=== PATIENT | male | born 1970 | race Caucasian/White ===

== ENCOUNTER 2018-11-20 21:14 | Observation (INO) | payer OTHER ==
[2018-11-20 22:03] LABS: Absolute Lymphocytes (CBC) 1.1 K/uL (0.7-4.9); Absolute Monocytes 0.4 K/uL (0.1-1.3); Absolute Neutrophil 4.4 K/uL (1.8-8.0); Basophils % 0.8 % (0-1.3); Eosinophils % 2.9 % (0-4.4); Hematocrit 34.6 % (39.6-49.0); Lymphocytes % 17.9 % (15.3-44.8); MPV 9.4 fL (7.6-11.3); Monocytes % 5.9 % (3.3-12.3); RBC Red Blood Cell Count 4.06 M/uL (4.33-5.43)
[2018-11-20] MEDS ORDERED: DICYCLOMINE HCL 10 MG CAP ONE (22:05)
[2018-11-20] MEDS ORDERED: LOPERAMIDE HCL 2 MG CAPSULE ONE (22:05)
[2018-11-20] MEDS ORDERED: ONDANSETRON 4 MG/2 ML VIAL ONE (22:06)
[2018-11-20] MEDS ORDERED: NA CHLORIDE 0.9% 1,000 ML ONE (22:06)
[2018-11-20 22:17] LABS: ALT/SGPT 21 U/L (12-78); AST/SGOT 17 U/L (15-37); Albumin 3.2 g/dL (3.4-5.0); Alkaline Phosphatase 72 U/L (45-117); BUN Blood Urea Nitrogen 68 mg/dL (7-18); Bicarbonate 21 mmol/L (21-32); Bilirubin Direct < 0.1 mg/dL (0-0.2); Bilirubin Total 0.4 mg/dL (0.2-1.0); Glucose Level 200 mg/dL (74-106); Lipase 274 U/L (73-393); Potassium 5.1 mmol/L (3.5-5.1); Protein, Total 6.6 g/dL (6.4-8.2); Sodium Level 143 mmol/L (136-145)
[2018-11-20 22:34] LABS: Urine Blood 1+ (NEG); Urine Glucose 1+ (NEG); Urine Protein 3+ (NEG); Urine Specific Gravity 1.025 (1.005-1.030); Urine pH 5.5 (5.0-7.0)
--- NOTE | 2018-11-20 23:45 | ER ---
Nurse's Notes [facility] Name: Baltazar Granger Age: 48 yrs Sex: Male : 1970 Arrival Date: 11/20/2018 Time: 21:18 Bed 6 Private MD: Diagnosis: Dehydration;Chronic kidney disease (CKD);Nausea and vomiting Presentation: 11/20 21:26 Presenting complaint: Patient states: N/V/D x 2 days. Also reports left sided chest tl2 pain in shoulder area. Pt states he has 18% kidney function and is on the transplant list. Transition of care: patient was not received from another setting of care. Onset of symptoms was November 18, 2018. Risk Assessment: Do you want to hurt yourself or someone else? Patient reports no desire to harm self or others. Initial Sepsis Screen: Does the patient meet any 2 criteria? No. Patient's initial sepsis screen is negative. Does the patient have a suspected source of infection? No. Patient's initial sepsis screen is negative. Care prior to arrival: None. 21:26 Method Of Arrival: Ambulatory tl2 21:26 Acuity: PANCHITO 2 tl2 Triage Assessment: 21:30 General: Appears in no apparent distress. uncomfortable, Behavior is calm, cooperative, tl2 appropriate for age. Pain: Complains of pain in left mid back and right mid back. Historical: - Allergies: 21:30 No Known Allergies; tl2 - Home Meds: 21:30 atorvastatin 80 mg oral tab 1 tab once daily [Active]; gabapentin 100 mg oral cap 3 tl2 caps 3 times per day [Active]; glimepiride 1 mg Oral tab 1 tab once daily [Active]; losartan 25 mg oral tab 1 tab once daily [Active]; omeprazole 20 mg Oral cpDR 1 cap once daily [Active]; metoprolol succinate 25 mg oral Tb24 1 tab once daily [Active]; fenofibrate 160 mg oral tab 1 tab once daily [Active]; amlodipine 10 mg oral tab [Active]; - PMHx: 21:30 ESRD; Diabetes - IDDM; Hypertension; tl2 - Immunization history:: Adult Immunizations up to date. - Social history:: Smoking status: Patient/guardian denies using tobacco. - Ebola Screening: : No symptoms or risks identified at this time. Screenin:31 Abuse screen: Denies threats or abuse. Nutritional screening: No deficits noted. tl2 Tuberculosis screening: No symptoms or risk factors identified. Fall Risk None identified. Assessment: 21:31 General: Appears in no apparent distress. uncomfortable, Behavior is calm, cooperative, tl2 appropriate for age. General: Reports feeling ill for. Pain: Complains of pain in right mid back and left mid back. Neuro: Level of Consciousness is awake, alert, obeys commands, Oriented to person, place, time, situation. Cardiovascular: Patient's skin is warm and dry. Chest pain is described as diffuse, quality is pressure, sharp, is located in left anterior chest wall began 2 hours prior to arrival. Respiratory: Airway is patent Respiratory effort is even, unlabored, Respiratory pattern is regular, symmetrical. GI: Abdomen is round Reports diarrhea, nausea, vomiting. : Denies burning with urination. Derm: Skin is pale. 22:40 Reassessment: Patient appears in no apparent distress at this time. Patient and/or tl2 family updated on plan of care and expected duration. Pain level reassessed. Patient is alert, oriented x 3, equal unlabored respirations, skin warm/dry/pink. pt was able to hold down water and PO medications, pt resting comfortably at this time. Awaiting lab results. Vital Signs: 21:30 BP 146 / 87; Pulse 63; Resp 18; Temp 98.4(O); Pulse Ox 99% on R/A; Weight 104.33 kg; tl2 Height 6 ft. 0 in. (182.88 cm); Pain 8/10; 22:39 BP 134 / 98; Pulse 58; Resp 18; Pulse Ox 98% on R/A; tl2 23:33 BP 123 / 74; Pulse 57; Resp 18; Pulse Ox 97% on R/A; tl2 11/21 01:08 BP 111 / 65; Pulse 61; Resp 18; Pulse Ox 100% on R/A; tl2 02:20 BP 116 / 87; Pulse 57; Resp 18; Pulse Ox 99% on R/A; tl2 11/20 21:30 Body Mass Index 31.19 (104.33 kg, 182.88 cm) tl2 ED Course: 11/20 21:18 Patient arrived in ED. ds1 21:24 Prakash Ibarra MD is Attending Physician. ps1 21:27 Triage completed. tl2 21:30 Arm band placed on right wrist. EKG completed in triage. Results shown to MD. tl2 21:31 Patient has correct armband on for positive identification. Bed in low position. Call tl2 light in reach. Side rails up X 1. 21:50 Inserted saline lock: 22 gauge in left wrist, using aseptic technique. Blood collected. tl2 22:00 Pamela Peterson RN is Primary Nurse. tl2 11/21 01:19 Gavin Pascual MD is Hospitalizing Provider. ps1 03:05 Stone Protocol In Process Unspecified. EDMS 04:38 No provider procedures requiring assistance completed. Patient admitted, IV remains in tl2 place. Administered Medications: 11/20 22:01 Drug: Zofran 4 mg Route: IVP; Site: left wrist; tl2 23:00 Follow up: Response: No adverse reaction; Nausea is decreased tl2 22:01 Drug: NS 0.9% 1000 ml Route: IV; Rate: 1 bolus; Site: left wrist; tl2 23:30 Follow up: IV Status: Completed infusion; IV Intake: 1000ml tl2 22:19 Drug: Loperamide 2 mg Route: PO; tl2 23:00 Follow up: Response: No adverse reaction; Marked relief of symptoms tl2 22:19 Drug: Bentyl 10 mg Route: PO; tl2 23:00 Follow up: Response: No adverse reaction; Pain is decreased tl2 Intake: 23:30 IV: 1000ml; Total: 1000ml. tl2 Outcome: 23:44 Discharge ordered by . ps1 11/21 01:20 Decision to Hospitalize by Provider. ps1 04:39 Admitted to Tele accompanied by tech, via stretcher, room 405, with chart, Report tl2 called to MEREDITH Pimentel 04:39 Condition: stable 04:39 Condition: stable 04:39 Discharge instructions given to patient, Instructed on the need for admit. 04:39 Patient left the ED. tl2 Signatures: Dispatcher [facility] Kellie ds1 Pamela Peterson RN RN tl2 Prakash Ibarra MD MD ps1 Corrections: (The following items were deleted from the chart) 04:38 11/20 21:50 Inserted saline lock: 18 gauge in left wrist, using aseptic technique. tl2 Blood collected. tl2
--- NOTE | 2018-11-20 23:46 | EDPHYS ---
Physician Documentation [facility] Name: Baltazar Gragner Age: 48 yrs Sex: Male : 1970 Arrival Date: 11/20/2018 Time: 21:18 Bed 6 Private MD: ED Physician Prakash Ibarra HPI: 11/20 21:37 This 48 yrs old Male presents to ER via Ambulatory with complaints of nausea, ps1 vomiting, diarrhea. 21:37 Onset was 3 days ago and has not improved. Patient has poor kidney function and called ps1 his carbon rod inserter and told him to come to the ED for evaluation. States that he is unable to tolerate PO and has had multiple episodes of nausea, vomting, and diarrhea. No blood. No fever. Has chills. . Historical: - Allergies: 21:30 No Known Allergies; tl2 - Home Meds: 21:30 atorvastatin 80 mg oral tab 1 tab once daily [Active]; gabapentin 100 mg oral cap 3 tl2 caps 3 times per day [Active]; glimepiride 1 mg Oral tab 1 tab once daily [Active]; losartan 25 mg oral tab 1 tab once daily [Active]; omeprazole 20 mg Oral cpDR 1 cap once daily [Active]; metoprolol succinate 25 mg oral Tb24 1 tab once daily [Active]; fenofibrate 160 mg oral tab 1 tab once daily [Active]; amlodipine 10 mg oral tab [Active]; - PMHx: 21:30 ESRD; Diabetes - IDDM; Hypertension; tl2 - Immunization history:: Adult Immunizations up to date. - Social history:: Smoking status: Patient/guardian denies using tobacco. - Ebola Screening: : No symptoms or risks identified at this time. ROS: 21:37 Eyes: Negative for injury, pain, redness, and discharge, ENT: Negative for injury, ps1 pain, and discharge, Cardiovascular: Negative for chest pain, palpitations, and edema, Respiratory: Negative for shortness of breath, cough, wheezing, and pleuritic chest pain, MS/Extremity: Negative for injury and deformity, Skin: Negative for injury, rash, and discoloration, Neuro: Negative for headache, weakness, numbness, tingling, and seizure. 21:37 Constitutional: Positive for chills, fatigue. 21:37 Abdomen/GI: Positive for nausea, vomiting, and diarrhea, cramping. Exam: 21:37 Constitutional: This is a well developed, well nourished patient who is awake, alert, ps1 and in no acute distress. Head/Face: Normocephalic, atraumatic. Eyes: Pupils equal round and reactive to light, extra-ocular motions intact. Lids and lashes normal. Conjunctiva and sclera are non-icteric and not injected. Chest/axilla: Normal chest wall appearance and motion. Nontender with no deformity. No lesions are appreciated. Cardiovascular: Regular rate and rhythm. No gallops, murmurs, or rubs. Normal PMI, no JVD. No pulse deficits. Respiratory: Lungs have equal breath sounds bilaterally, clear to auscultation and percussion. No rales, rhonchi or wheezes noted. No increased work of breathing, no retractions or nasal flaring. Abdomen/GI: Soft, non-tender, with normal bowel sounds. No distension or tympany. No guarding or rebound. No evidence of tenderness throughout. MS/ Extremity: Pulses equal, no cyanosis. Neurovascular intact. Full, normal range of motion. Neuro: Awake and alert, GCS 15, oriented to person, place, time, and situation. Cranial nerves II-XII grossly intact. Sensory grossly intact. Psych: Awake, alert, with orientation to person, place and time. Behavior, mood, and affect are within normal limits. Vital Signs: 21:30 BP 146 / 87; Pulse 63; Resp 18; Temp 98.4(O); Pulse Ox 99% on R/A; Weight 104.33 kg; tl2 Height 6 ft. 0 in. (182.88 cm); Pain 8/10; 22:39 BP 134 / 98; Pulse 58; Resp 18; Pulse Ox 98% on R/A; tl2 23:33 BP 123 / 74; Pulse 57; Resp 18; Pulse Ox 97% on R/A; tl2 11/21 01:08 BP 111 / 65; Pulse 61; Resp 18; Pulse Ox 100% on R/A; tl2 02:20 BP 116 / 87; Pulse 57; Resp 18; Pulse Ox 99% on R/A; tl2 11/20 21:30 Body Mass Index 31.19 (104.33 kg, 182.88 cm) tl2 MDM: 11/20 21:39 Patient medically screened. ps1 11/21 01:19 Data reviewed: vital signs, nurses notes, lab test result(s), and as a result, I will ps1 admit patient. 11/20 21:34 Order name: CBC with Diff ps1 11/20 21:34 Order name: Hepatic Function; Complete Time: 23:12 ps1 11/20 21:34 Order name: Lipase; Complete Time: 23:12 ps1 11/20 21:34 Order name: CMP; Complete Time: 23:12 [facility] 11/20 21:35 Order name: CBC with Automated Diff; Complete Time: 22:14 [facility] 11/20 22:07 Order name: Urine Microscopic Only; Complete Time: 01:15 tl2 11/20 21:34 Order name: IV Saline Lock; Complete Time: 21:49 ps1 11/20 22:16 Order name: Urine Dipstick--Ancillary (enter results); Complete Time: 23:12 cm6 11/20 23:50 Order name: Urine Culture [facility] 11/21 02:22 Order name: Stone Protocol [facility] 11/20 21:34 Order name: Labs collected and sent; Complete Time: 21:49 ps1 Administered Medications: 11/20 22:01 Drug: Zofran 4 mg Route: IVP; Site: left wrist; tl2 23:00 Follow up: Response: No adverse reaction; Nausea is decreased tl2 22:01 Drug: NS 0.9% 1000 ml Route: IV; Rate: 1 bolus; Site: left wrist; tl2 23:30 Follow up: IV Status: Completed infusion; IV Intake: 1000ml tl2 22:19 Drug: Loperamide 2 mg Route: PO; tl2 23:00 Follow up: Response: No adverse reaction; Marked relief of symptoms tl2 22:19 Drug: Bentyl 10 mg Route: PO; tl2 23:00 Follow up: Response: No adverse reaction; Pain is decreased tl2 Disposition: 11/21/18 01:20 Hospitalization ordered by Gavin Pascual for Observation. Preliminary diagnosis are Dehydration, Chronic kidney disease (CKD), Nausea and vomiting. - Bed requested for Telemetry/MedSurg (observation). - Status is Observation. tl2 - Condition is Stable. - Problem is new. - Symptoms have improved. UTI on Admission? No Signatures: Dispatcher [employer] Flores George, RN RN cg Pamela Peterson RN RN tl2 Prakash Ibarra MD MD ps1 Corrections: (The following items were deleted from the chart) 23:46 23:44 11/20/2018 23:44 Discharged to Home. Impression: Streptococcal pharyngitis. ps1 Condition is Stable. Forms are Medication Reconciliation Form, Thank You Letter, Antibiotic Education, Prescription Opioid Use. Follow up: Private Physician; When: 1 week; Reason: Recheck today's complaints, Continuance of care, Re-evaluation by your physician. Follow up: Emergency Department; When: As needed; Reason: Trouble breathing, Worsening of condition. Problem is new. Symptoms have improved. ps1 11/21 02:17 01:20 Hospitalization Ordered by Gavin Pascual MD for Observation. Preliminary cg diagnosis is Dehydration; Chronic kidney disease (CKD); Nausea and vomiting. Bed requested for Telemetry/MedSurg (observation). Status is Observation. Condition is Stable. Problem is new. Symptoms have improved. UTI on Admission? No. ps1 04:39 02:17 11/21/2018 01:20 Hospitalization Ordered by Gavin Pascual MD for Observation. tl2 Preliminary diagnosis is Dehydration; Chronic kidney disease (CKD); Nausea and vomiting. Bed requested for Telemetry/MedSurg (observation). Status is Observation. Condition is Stable. Problem is new. Symptoms have improved. UTI on Admission? No. cg
[2018-11-20 23:47] LABS: Urine Bacteria <20 /HPF (NONE SEEN); Urine RBC <5 /HPF (NONE SEEN)
[2018-11-20 23:48] LABS: Urine Culture Reflex Order REFLEXED
--- NOTE | 2018-11-21 02:12 | P.HP ---
Certification for Inpatient Patient admitted to: Observation With expected LOS: <2 Midnights Practitioner: I am a practitioner with admitting privileges, knowledge of patient current condition, hospital course, and medical plan of care. Services: Services provided to patient in accordance with Admission requirements found in Title 42 Section 412.3 of the Code of Federal Regulations Patient History Date of Service: 11/21/18 Reason for admission: acute gastroenteritis History of Present Illness: Mr Granger is a 48 years old male with history of DM II, HTN, CKD stage V on transplant list, who came to ED complaining of pregressive weakness. He also states that since 3 days ago, has had nausea, vomiting and diarrhea. He denied abdominal pain, but has had right side back pain. He has history of kidney stones in the past. He denied fever but had chills. Last bowel movement, last night. Lab work shows normal WBC count. Ceatinine 4.6, UA without signs of infection. Home medications list reviewed: Yes - Past Medical/Surgical History -: DM II -: CKD stage V on transplant list, no HD yet -: HTN Past Surgical History: Reviewed- Non-Contributory - Family History Family History: Reviewed- Non-Contributory - Social History Smoking Status: Former smoker Alcohol use: No CD- Drugs: No Place of Residence: Home Review of Systems 10-point ROS is otherwise unremarkable Physical Examination - Physical Exam General: Alert, In no apparent distress HEENT: Atraumatic, PERRLA, Mucous membr. moist/pink, EOMI, Sclerae nonicteric Neck: Supple, 2+ carotid pulse no bruit, No LAD, Without JVD or thyroid abnormality Respiratory: Clear to auscultation bilaterally, Normal air movement Cardiovascular: Regular rate/rhythm, Normal S1 S2 Gastrointestinal: Normal bowel sounds, No tenderness Musculoskeletal: No tenderness Integumentary: No rashes Neurological: Normal speech, Normal strength at 5/5 x4 extr, Normal tone, Normal affect Lymphatics: No axilla or inguinal lymphadenopathy - Studies Laboratory Data (last 24 hrs) 11/20/18 21:48: Sodium 143, Potassium 5.1, BUN 68 H, Creatinine 4.60 H, Glucose 200 H, Total Bilirubin 0.4, AST 17, ALT 21, Alkaline Phosphatase 72, Lipase 274 11/20/18 21:48: WBC 6.1, Hgb 11.6 L, Hct 34.6 L, Plt Count 145 L Assessment and Plan - Problems (Diagnosis) (1) Acute kidney injury superimposed on CKD Current Visit: Yes Status: Acute (2) Diabetes mellitus Current Visit: Yes Status: Acute Qualifiers: Diabetes mellitus type: type 2 Diabetes mellitus termite exterminator helper insulin use: without termite exterminator helper use Diabetes mellitus complication status: with unspecified complications Qualified Code(s): E11.8 - Type 2 diabetes mellitus with unspecified complications (3) HTN (hypertension) Current Visit: Yes Status: Acute Qualifiers: Hypertension type: essential hypertension Qualified Code(s): I10 - Essential (primary) hypertension (4) Acute gastroenteritis Current Visit: Yes Status: Acute (5) Dehydration Current Visit: Yes Status: Acute - Plan Will admit the patient under observation due to N/V and diarrhea, likely secondary to UTI. Lab work is not consistent with biliary obstruction. Will order CT abd/pelvis stone protocol. Consult Beading Machine Operator. Continue IV fluid replacement. - Advance Directives Does patient have a Living Will: No Does patient have a Durable POA for Healthcare: No - Code Status/Comfort Care Code Status Assessed: Yes Code Status: Full Code
[2018-11-21 04:36] VITALS: BMI 33.6
[2018-11-21] MEDS: NA CHLORIDE 0.9% 1,000 ML IV SCH ×2 (05:09→12:39)
[2018-11-21] MEDS: ONDANSETRON 4 MG/2 ML VIAL IV PRN (05:10)
[2018-11-21] MEDS: MORPHINE 2 MG/ML SYR IV PRN ×3 (06:26→22:07)
[2018-11-21] MEDS: INSULIN -REGULAR HUMAN 50 UNIT/0.5 ML ML SQ SCH ×4 (07:30→21:01)
[2018-11-21] MEDS ORDERED: MAGNESIUM SULFATE 1 gm IVPB 1 GM/100 ML BAG IV ONE (09:00)
--- NOTE | 2018-11-21 10:16 | EKG ---
Test Date: 2018-11-20 Test Time: 21:32:17 Mechanical Shovel Operator: LISA MEASUREMENT RESULTS: Intervals: Rate: 62 DC: 132 QRSD: 92 QT: 398 QTc: 403 [place]: P: 12 DC: 132 QRS: 3 T: 0 INTERPRETIVE STATEMENTS: Normal sinus rhythm Normal ECG No previous ECG available for comparison Electronically Signed On 11-21-18 10:15:23 CDT by Kit Alejandre
--- NOTE | 2018-11-21 11:26 | RAD REPORT ---
EXAM DESCRIPTION: RAD - Chest Pa And Lat (2 Views) - 11/21/2018 11:08 am CLINICAL HISTORY: Shortness of breath COMPARISON: None. TECHNIQUE: PA and lateral views of the chest were obtained. FINDINGS: The lungs are clear of a focal mass, infiltrate or significant failure/ volume overload fi nding. Heart size is normal and central vasculature is within normal limits. No pleural effusion o r pneumothorax seen. No acute bony finding noted. No aortic abnormality. IMPRESSION: No acute cardiopulmonary process. No pleural effusion.
--- NOTE | 2018-11-21 13:16 | P.CNS ---
Date of Consult: 11/21/18 patient seen/examined. alert / awake. presented with diarrhea...has had this problem before and has diabetes/htn and advanced kidney disease in range of ckd stage 4-5. patient has been good today with last episode of diarrhea yesterday evening. he was volume depleted on presentation (no edema/dry skin/no sob/and clear to auscultation lungs). he has been getting ivf with ns at 125 ccs and hour. bp has been good. he feels better and diarrhea for now is better. ua shows some wbcs/bacteria...final culture is pending. patient has no allergies to medications. vs stable lungs cta cvs rrr abd soft/obese/nt/nd ext no edema/dry skin poor vision. pmx: dm/htn/ckd presentation: diarrhea...resolved for now. no pain. no fever. no cp/no sob. labs reviewed meds reviewed social: lives with room mate. flew plane in [place]...now disabled. feels safe at home. denies depression. family hx: non contributory allergies: nkda. patient denies any medication allergies a/p: ckd 4/5: volume depleted. diarrhea improved. change ivf to 1/2 ns. repeat chem7/ mg with am labs. hba1c with am labs. low calcium: some improvement on corrected calcium, given low albumin. give one dose of ergocalceferol 50,000 units once today. ? uti: cx pending. one dose of levaquin 500mg iv. poor eyesight: discussed dialysis options...will likely be better off with in center hd as home hd and pd may be tough given his difficulty with vision...patient is also thinking same. advised to f/u with primary kitchen help handyman gema (Dr. Lehman), to review planning for av fistula...given his advanced renal disease, may need dialysis catheter in near future for dialysis if condition worsens...patient counseled. fall precautions advised.
[2018-11-21] MEDS ORDERED: Levofloxacin500mg IV 500 MG/100 ML BAG IV ONE (13:24)
[2018-11-21] MEDS ORDERED: OXYBUTYNIN CHLORIDE 5 MG TAB PO PRN (13:49)
[2018-11-21] MEDS ORDERED: DRISDOL (VITAMIN D=ERGOCALCIFEROL) 50000 UNIT CAP PO ONE (14:00)
[2018-11-21] MEDS: NACHLORIDE 0.45% 1,000 ML IV SCH (14:19)
--- NOTE | 2018-11-21 14:33 | PN ---
Date of Progress Note: 11/21/2018 Patient is seen and examined, chart reviewed, and case discussed with RN and Dr. Wallace. Medications: List reviewed. Physical Examination: Vital Signs: Temperature 97.9, heart rate 58, blood pressure 132/84, respirations 16, O2 of 97% on r oom air. General: Awake, alert, oriented x3. No acute distress. CV: S1, S2. Regular rate and rhythm. Peripheral pulses present. Respiratory: Moving air well bilaterally. No wheezing or stridor. No use of accessory muscles. Gastrointestinal: Abdomen is soft, nontender, nondistended. Positive bowel sounds. No guarding or rigidity. Extremities: No clubbing, cyanosis, or edema. Neurologic: Nonfocal. Laboratory Data: Sodium 143. Glucose is 177. Magnesium is 1.7. Chest x-ray shows no acute cardiop ulmonary process. No pleural effusion. Assessment And Plan: 1.Acute kidney injury superimposed on chronic kidney disease stage 3-4. Patient currently on the tr ansplant list. We will avoid NSAIDs. CT scan of the abdomen does show a 2-mm stone in the right kid lynda, nonobstructing left kidney shows renal pelvis cysts with some hydronephrosis. 2.Diabetes mellitus type 2 without long-term use of insulin with chronic kidney disease. We will co ntinue with sliding scale insulin and monitor Accu-Cheks. 3.Essential hypertension, stable. 4.Acute gastroenteritis. The patient was NPO. We will advance diet as tolerated. 5.Acute dehydration. Continue with IV fluids. 6.Abnormal UA. We will follow up on urine culture. Plan: We will continue with IV fluids. I did speak with urologist, Dr. Wallace, who does not recommen d any intervention at this time. He recommends outpatient followup in his office. SA/MODL Voice ID: [id number] Report ID: [id number]
[2018-11-21] MEDS ORDERED: TAMSULOSIN 0.4 MG SR CAP PO SCH (21:00)
[2018-11-22] MEDS: MORPHINE 2 MG/ML SYR IV PRN ×2 (02:29→08:13)
[2018-11-22] MEDS: NACHLORIDE 0.45% 1,000 ML IV SCH (02:30)
[2018-11-22 05:53] LABS: Absolute Lymphocytes (CBC) 0.6 K/uL (0.7-4.9); Absolute Monocytes 0.4 K/uL (0.1-1.3); Basophils % 0.7 % (0-1.3); Eosinophils % 3.7 % (0-4.4); Lymphocytes % 18.9 % (15.3-44.8); MPV 9.5 fL (7.6-11.3); Monocytes % 11.4 % (3.3-12.3); RBC Red Blood Cell Count 3.45 M/uL (4.33-5.43)
[2018-11-22 06:30] LABS: Magnesium 1.9 mg/dL (1.8-2.4); Potassium 4.9 mmol/L (3.5-5.1)
[2018-11-22] MEDS: INSULIN -REGULAR HUMAN 50 UNIT/0.5 ML ML SQ SCH ×2 (08:13→11:30)
[2018-11-22 08:15] LABS: Blood Morphology Comment NOT SEEN (NOT SEEN); Platelet Estimate DECR; Urine White Blood Cell Casts OK
[2018-11-22] MEDS: ONDANSETRON 4 MG/2 ML VIAL IV PRN (08:49)
[2018-11-22 09:53] VITALS: TEMP 97.5
[2018-11-22 12:42] VITALS: BP 145/87
[2018-11-22 13:00] VITALS: O2SAT 94
--- NOTE | 2018-11-23 01:08 | DS ---
Date of Discharge: 11/22/2018 Admitting Diagnoses: 1.Intractable nausea and vomiting. 2.Acute kidney injury superimposed on chronic kidney disease. 3.Diarrhea. 4.Acute dehydration. 5.Diabetes mellitus type 2 without long-term use of insulin with chronic kidney disease. 6.Essential hypertension. 7.Acute gastroenteritis. Discharge Diagnoses: 1.Intractable nausea and vomiting, improved. 2.Acute dehydration secondary to above, improved with IV fluid hydration. 3.Diarrhea, resolved. 4.Acute kidney injury superimposed on chronic kidney disease stage 4 to 5, on transplant list. 5.Diabetes mellitus type 2 without long-term use of insulin with chronic kidney disease. 6.Essential hypertension. 7.Acute gastroenteritis. 8.Abnormal urinalysis. Urine culture negative. 9.Nephrolithiasis, right-sided, nonobstructing. Hospital Course: The patient is a 48-year-old male with past medical history of diabetes, hypertensi on, chronic kidney disease stage 4 to 5, on transplant list, comes in with acute gastroenteritis. Th e patient was dehydrated. He was started on IV fluids. The patient states his baseline kidney funct ion is 3.5. He usually sees Dr. Lehman. No labs are available from previous visits in the [facility] system. The patient was started on IV fluids. He was rehydrated. He was given antiemetics. He d id have an abnormal UA, however, urine culture did not show any growth. CT scan of the abdomen showe d a mass effect in the right bladder by a right lauren-pelvic penile implant reservoir, showed some dis tention of the left renal pelvis due to parapelvic cyst. No renal stone or mass within the left sylvester ecting system. Right renal atrophy, 2 mm nodular density, right renal pelvic stone, small hiatal her jean-paul, splenomegaly with varices, evidence of distal pancreatectomy, conglomeration of fat containing u mbilical and supraumbilical hernias. Other hernia contains a short segment of the mid transverse col on without obstruction or incarceration. The patient was started on Flomax and Ditropan p.r.n. I sp lanette with urologist on-call, Dr. Wallace, who did not recommend any intervention at this time for the ki dney stone which should pass on its own. Recommended outpatient followup. The patient overall did w ell. Dr. Lizama did not recommend initiating dialysis at this time. He recommended outpatient followu p with the patient's primary range scientist, Dr. Lehman, to have AV graft process started and continu e to wait for renal transplant versus initiating dialysis. The patient's nausea and vomiting improve d. He no longer was having any diarrhea. He was then cleared for discharge from Dr. Lizama's [facility] nt. He was then discharged home in a stable condition. Activity: As tolerated. Medications: As per medication reconciliation list. Avoid NSAIDs. Diet: Renal. Followup: Follow up with primary care physician in 2 to 3 days. Follow up with range scientist, Dr. Jeanie pérez, in 2 weeks. Return to ER for worsening condition. Physical Examination: General: Awake, alert, oriented x3. No acute distress. Obese male. CV: S1, S2. No murmurs. Respiratory: Moving air well bilaterally. Extremities: No clubbing, cyanosis, edema. Abdomen: Soft, nontender, nondistended. Positive bowel sounds. Neurologic: Nonfocal. SA/MODL Voice ID: [id number] Report ID: [id number]
--- NOTE | 2018-11-23 10:54 | RAD REPORT ---
EXAM DESCRIPTION: CT - Stone Protocol - 11/21/2018 3:24 am COMPARISON: None. TECHNIQUE: Axial unenhanced [address] imaging of the abdomen and pelvis performed. Reformatted coronal and sagittal images reviewed. A dose reduction technique was utilized with automated exposure control according to patient size. FINDINGS: LOWER THORAX: Minimal bilateral lower lobe subpleural atelectasis. Heart is normal in siz e. No pericardial fluid. ABDOMEN: LIVER/GALLBLADDER: Liver is enlarged to 19 cm. Normal hepatic attenuation. Normal gallbladder. SPLEEN/PANCREAS: The spleen is enlarged to 16.7 cm. Mild left upper quadrant varices. 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 Proximal pancreas appears normal. KIDNEYS/ADRENAL GLANDS: Normal adrenal glands. There is right renal atrophy. There is fluid distenti on of the left renal pelvis due possibly due to parapelvic cysts. No renal stone. Normal caliber of t he left ureter. There is a small right extrarenal pelvis. Nonobstructing 2 mm right renal pelvic ston e. RETROPERITONEAL VESSELS/NODES: Normal aorta and inferior vena cava caliber. No adenopathy. BOWEL: Small hiatal hernia. Normal remaining stomach. Small bowel caliber is within normal limits. A ppendix is not identified identified. Colon is unremarkable. There is mild anterior bulging of the mi d transverse colon into a fat-containing supraumbilical hernia without proximal obstruction or incarc eration. MESENTERY/PERITONEUM: No adenopathy. No ascites. No free air. There is a conglomeration of umbilical and supraumbilical fat-containing ventral midline abdominal wall hernias. No evidence of incarcerati on. PELVIS: BLADDER: The bladder is unremarkable. There is mass effect upon the right bladder wall by a right he mipelvic penile implant reservoir. GENITAL ORGANS: Penile implants are partially imaged. PERITONEUM: No pelvic free fluid or adenopathy. BONES AND SOFT TISSUES: Normal lumbosacral alignment. Intact bony pelvis. Normal hips. IMPRESSION: 1. Distention of the left renal pelvis may be due to parapelvic cysts. There is no renal stone or mass within the left collecting system. 2. Right renal atrophy. 2 mm nodular density right renal pelvic stone. 3. Small hiatal hernia. 4. Splenomegaly with varices. Evidence of distal pancreatectomy. 5. Conglomeration of fat-containing umbilical and supra umbilical hernias. One of the hernia defect c ontains a short segment of the mid transverse colon without obstruction or incarceration. Electronically signed by: Dianne Lux DO 11/21/2018 3:18 AM CDT Due to temporary technical issues with the PACS/Fluency reporting system, reports are being signed by the in house radiologist as a courtesy to ensure prompt reporting. The interpreting radiologist is f ully responsible for the content of the report.
== END 2018-11-22 13:20 | disposition home or self-care (01) ==
LOC: ER 21:14 → 4TH 11-21 01:20 → OBSVTOIN 11-21 14:00 → INTOOBSV 11-21 14:00
PROVIDERS: ADMIT Internal Medicine; ATTEND Family Medicine
DX: K52.9 Noninfective gastroenteritis and colitis, unspecified (principal); I12.0 Hypertensive chronic kidney disease with stage 5 chronic kidney disease or end stage renal disease; E11.22 Type 2 diabetes mellitus with diabetic chronic kidney disease; N18.5 Chronic kidney disease, stage 5; N17.9 Acute kidney failure, unspecified; N20.0 Calculus of kidney; N28.1 Cyst of kidney, acquired; N13.30 Unspecified hydronephrosis; Z79.4 Long term (current) use of insulin; Z99.2 Dependence on renal dialysis; Z87.891 Personal history of nicotine dependence
CPT/HCPCS: 96361; 93005; 87088; 85025 ×2; 87086; 80048; 36415 ×2; 83735 ×2; 82962 ×7; 80076; 83036; 83690; 80053; 76377; 74176; 71046; 96374; 99285; J3475; J2270 ×5; J7030 ×2; J2405 ×3; G0378 ×2; 81003; 81015

== ENCOUNTER 2018-11-29 20:29 | Inpatient (IN) | payer OTHER ==
--- OUTSIDE RECORDS SUMMARY | 2018-11-29 20:32 | XMS REPORT | Clinical Summary ---
:1970 Author Organization [facility] Address [address] [place] [address] Care Team Providers Name Role Phone Mina Grigsby MD Primary Care Provider Allergies No Known Allergies Medications Medication Sig Dispensed Refills Start End Date Status Date lisinopril Take 5 mg by mouth 0 Active (PRINIVIL,ZESTRIL) daily. 5 MG tablet fenofibrate Take 160 mg by 0 Active (TRIGLIDE,LOFIBRA) mouth daily. 160 MG tablet docusate sodium Take 1 capsule 30 capsule 0 Active (COLACE) 100 MG (100 mg total) by 5 capsule mouth 2 (two) times daily. insulin pen Use as directed. 50 each 3 Active needles (BD 5 ULTRA-FINE JONNY) 4 Inject daily. mm x 32 G insulin aspart Inject 0 Active (NOVOLOG) 100 subcutaneously 3 unit/mL InPn (three) times daily with meals. amLODIPine Take 10 mg by 0 Active (NORVASC) 10 MG mouth daily. tablet atorvastatin Take 80 mg by 0 Active (LIPITOR) 80 MG mouth daily. tablet ergocalciferol Take 50,000 Units 0 Active (VITAMIN D2) by mouth once a 50,000 unit week. capsule gabapentin Take 100 mg by 0 Active (NEURONTIN) 100 MG mouth 3 (three) capsule times daily. metoprolol Take 25 mg by 0 Active (TOPROL-XL) 25 MG mouth daily. 24 hr tablet omeprazole Take 20 mg by 0 Active (PRILOSEC) 20 MG mouth daily. capsule insulin glargine Inject 45 Units 0 Active U-300 conc (TOUJEO subcutaneously MAX U-300 daily. SOLOSTAR) 300 unit/mL (3 mL) InPn insulin detemir Inject 0.2 mLs (20 9 mL 1 09/23/201 10/29/19 Discontinued (LEVEMIR Units total) 5 19 FLEXTOUCH) 100 subcutaneously unit/mL (3 mL) nightly. InPn injection Missing or Trulista . 0 10/29/19 Discontinued Non-Formulary 19 Medication insulin glargine Inject 30 Units 0 10/29/19 Discontinued (LANTUS) 100 subcutaneously 19 unit/mL injection nightly Use as directed . 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 with type 2 2018 diabetes mellitus, unspecified proliferative retinopathy type Diabetic polyneuropathy associated with type 2 diabetes mellitus 10/30/2018 History of kidney stones 10/30/2018 Secondary hyperparathyroidism of renal origin 10/30/2018 Legally blind 10/30/2018 Obesity (BMI 30.0-34.9) 10/30/2018 Neuroendocrine tumor of pancreas 10/30/2018 Chest pain, unspecified type 03/02/2016 Gastroenteritis 03/02/2016 Acute kidney failure 03/02/2016 Vomiting 09/14/2014 Diabetes 09/14/2014 Essential hypertension 09/14/2014 Dyslipidemia 09/14/2014 Abdominal pain 09/08/2014 Blindness of both eyes Encounters Date Type Specialty Care Team Description 11/17/2018 Evaluation Transplant Eddie, Pre-transplant evaluation [facility] for chronic kidney disease MD Elton (Primary Dx) 10/28/2018 Orders Only Transplant Eddie, Essential hypertension; Hepatology Bhamidipati Diabetes mellitus due to underlying 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, without long-term current use of insulin (HCC); MD Elton CKD (chronic kidney disease) stage 4, GFR 15-29 ml/min ([facility]) ; Pre-transplant evaluation for chronic kidney disease 10/28/2018 Office Visit Transplant Eddie, Essential hypertension (Primary Dx); amidipati Diabetes mellitus due to underlying 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, without long-term current use of insulin ( HCC); MD Elton CKD (chronic kidney disease) stage 4, GFR 15-29 ml/min (HCC); [place], Pre-transplant evaluation for chronic kidney disease Marci Martinez RN 10/28/2018 Evaluation Transplant Eddie, Pre-transplant evaluation for chronic kidney disease (Primary Dx); Yfn CKD (chronic kidney disease) stage 4, GFR 15-29 ml/min ([facility]) ; MD Elton Diabetic nephropathy associated with type 2 diabetes mellitus ([facility]); Essential hypertension; 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, unspecified proliferative retinopathy type ([facility]); Diabetic polyneuropathy associated with type 2 diabetes mellitus ([facility]); History of kidney stones; Secondary hyperparathyroidism of renal origin ([facility]); Legally blind; Obesity (BMI 30.0-34.9); Neuroendocrine tumor of pancreas 10/09/2018 Abstract Transplant Lennie Luis 09/28/2018 Abstract Lennie Almaguer after 11/28/2017 Immunizations Name Dates Previously Given Next Due Influenza TIV (IM) 09/16/2014 Pneumococcal Polysaccharide (Pneumovax) 09/16/2014 Social History Tobacco Use Types Packs/Day Years Used Date Former Smoker Cigarettes 2 20 Quit: 08/02/2013 Smokeless Tobacco: Never Used Alcohol Use Drinks/Week oz/Week Comments No quit in 2012 glass of wine a week Sex Assigned at Date Recorded Not on file Job Start Date Occupation Industry Not on file Not on file Not on file Travel History Travel Start Travel End No recent travel history available. Last Filed Vital Signs Vital Sign Reading Time Taken Blood Pressure 153/97 10/28/2018 12:04 PM CDT Pulse 62 10/28/2018 12:04 PM CDT Temperature 36.6 C (97.9 F) 10/28/2018 12:04 PM CDT Respiratory Rate 20 10/28/2018 12:04 PM CDT Oxygen Saturation 99% 10/28/2018 12:04 PM CDT Inhaled Oxygen Concentration - - Weight 112.7 kg (248 lb 8 oz) 11/17/2018 1:29 PM CDT Height 182.9 cm (6') 11/17/2018 1:29 PM CDT Body Mass Index 33.7 11/17/2018 1:29 PM CDT Plan of Treatment Date Type Specialty Care Team Description 11/30/2018 Orders Only Lab Yfn Morgan MD [address] [address] [phone] 11/30/2018 Appointment Radiology Yfn Morgan MD [address] [address] [phone] 11/30/2018 Appointment Radiology Yfn Morgan MD [address] [address] [phone] 11/30/2018 Appointment Radiology Yfn Morgan MD [address] [address] [phone] 11/30/2018 Appointment Cardiology Yfn Morgan MD [address] [address] [phone] 11/30/2018 Appointment Cardiology Yfn Morgan MD [address] [address] [phone] Implants Implanted Type Area Harvester Operator Device Shelf Model / Identifier Expiration Serial / Date Lot Sealant,Floseal Hemostatic Matrix 10ml - [id number] Cement/F N/A: BOLAND 11/02/2015 [id number] / Implanted: Qty: 1 on 09/19/2014 by Toro Casper MD iller/Ad Abdomen BIOSCIENCE / hesive FORMER FUSION [id number] MEDICAL Procedures Procedure Name Priority Date/Time Associated Comments Diagnosis TRANSFUSION SERVICE 10/29/2018 6:05 REPORT - SCAN PM CDT TYPE AND SCREEN, Routine 10/28/2018 12:00 Essential Results for this AUTOMATED PM CDT hypertension procedure are in Diabetes mellitus the results due to underlying section. 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, without long-term current use of insulin (HCC) CKD (chronic kidney disease) stage 4, GFR 15-29 ml/min ([facility]) Pre-transplant evaluation for chronic kidney disease URINALYSIS W/ Routine 10/28/2018 11:47 Essential Results for this MICROSCOPIC AM CDT hypertension procedure are in Diabetes mellitus the results due to underlying section. 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, without long-term current use of insulin (HCC) CKD (chronic kidney disease) stage 4, GFR 15-29 ml/min (HCC) Pre-transplant evaluation for chronic kidney disease URINE CULTURE Routine 10/28/2018 11:47 Essential Results for this AM CDT hypertension procedure are in Diabetes mellitus the results due to underlying section. 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, without long-term current use of insulin (HCC) CKD (chronic kidney disease) stage 4, GFR 15-29 ml/min (HCC) Pre-transplant evaluation for chronic kidney disease CBC W/PLT COUNT & AUTO Routine 10/28/2018 11:46 Essential Results for this DIFFERENTIAL AM CDT hypertension procedure are in Diabetes mellitus the results due to underlying section. 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, without long-term current use of insulin (HCC) CKD (chronic kidney disease) stage 4, GFR 15-29 ml/min (HCC) Pre-transplant evaluation for chronic kidney disease DIRECT AHG (RONAK)/DIRECT Routine 10/28/2018 11:46 Essential Results for this TYREE AM CDT hypertension procedure are in Diabetes mellitus the results due to underlying section. 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, without long-term current use of insulin (HCC) CKD (chronic kidney disease) stage 4, GFR 15-29 ml/min (HCC) Pre-transplant evaluation for chronic kidney disease BLOOD TYPING, AUTOMATED Routine 10/28/2018 11:46 Essential Results for this AM CDT hypertension procedure are in Diabetes mellitus the results due to underlying section. 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, without long-term current use of insulin (HCC) CKD (chronic kidney disease) stage 4, GFR 15-29 ml/min (HCC) Pre-transplant evaluation for chronic kidney disease AB SPECIFICITY CLASS I Routine 10/28/2018 11:46 Essential Results for this AM CDT hypertension procedure are in Diabetes mellitus the results due to underlying section. 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, without long-term current use of insulin (HCC) CKD (chronic kidney disease) stage 4, GFR 15-29 ml/min (HCC) Pre-transplant evaluation for chronic kidney disease VARICELLA ZOSTER Routine 10/28/2018 11:46 Essential Results for this ANTIBODY, IGG AM CDT hypertension procedure are in Diabetes mellitus the results due to underlying section. 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, without long-term current use of insulin (HCC) CKD (chronic kidney disease) stage 4, GFR 15-29 ml/min (HCC) Pre-transplant evaluation for chronic kidney disease URIC ACID Routine 10/28/2018 11:46 Essential Results for this AM CDT hypertension procedure are in Diabetes mellitus the results due to underlying section. 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, without long-term current use of insulin (HCC) CKD (chronic kidney disease) stage 4, GFR 15-29 ml/min (HCC) Pre-transplant evaluation for chronic kidney disease T SPOT TB Routine 10/28/2018 11:46 Essential Results for this AM CDT hypertension procedure are in Diabetes mellitus the results due to underlying section. 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, without long-term current use of insulin ([facility]) CKD (chronic kidney disease) stage 4, GFR 15-29 ml/min (HCC) Pre-transplant evaluation for chronic kidney disease RPR Routine 10/28/2018 11:46 Essential Results for this AM CDT hypertension procedure are in Diabetes mellitus the results due to underlying section. 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, without long-term current use of insulin ([facility]) CKD (chronic kidney disease) stage 4, GFR 15-29 ml/min ([facility]) Pre-transplant evaluation for chronic kidney disease PROTHROMBIN TIME/INR Routine 10/28/2018 11:46 Essential Results for this AM CDT hypertension procedure are in Diabetes mellitus the results due to underlying section. 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, without long-term current use of insulin ([facility]) CKD (chronic kidney disease) stage 4, GFR 15-29 ml/min (HCC) Pre-transplant evaluation for chronic kidney disease PT/APTT Routine 10/28/2018 11:46 Essential Results for this AM CDT hypertension procedure are in Diabetes mellitus the results due to underlying section. 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, without long-term current use of insulin (HCC) CKD (chronic kidney disease) stage 4, GFR 15-29 ml/min (HCC) Pre-transplant evaluation for chronic kidney disease PTH, INTACT Routine 10/28/2018 11:46 Essential Results for this AM CDT hypertension procedure are in Diabetes mellitus the results due to underlying section. 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, without long-term current use of insulin ([facility]) CKD (chronic kidney disease) stage 4, GFR 15-29 ml/min (HCC) Pre-transplant evaluation for chronic kidney disease PHOSPHORUS Routine 10/28/2018 11:46 Essential Results for this AM CDT hypertension procedure are in Diabetes mellitus the results due to underlying section. 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, without long-term current use of insulin (HCC) CKD (chronic kidney disease) stage 4, GFR 15-29 ml/min (HCC) Pre-transplant evaluation for chronic kidney disease LACTATE DEHYDROGENASE Routine 10/28/2018 11:46 Essential Results for this (LDH) AM CDT hypertension procedure are in Diabetes mellitus the results due to underlying section. 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, without long-term current use of insulin (HCC) CKD (chronic kidney disease) stage 4, GFR 15-29 ml/min (HCC) Pre-transplant evaluation for chronic kidney disease HIV-1 ANTIGEN WITH Routine 10/28/2018 11:46 Essential Results for this HIV-1/2 ANTIBODY AM CDT hypertension procedure are in Diabetes mellitus the results due to underlying section. 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, without long-term current use of insulin (HCC) CKD (chronic kidney disease) stage 4, GFR 15-29 ml/min (HCC) Pre-transplant evaluation for chronic kidney disease HEPATITIS C ANTIBODY Routine 10/28/2018 11:46 Essential Results for this AM CDT hypertension procedure are in Diabetes mellitus the results due to underlying section. 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, without long-term current use of insulin (HCC) CKD (chronic kidney disease) stage 4, GFR 15-29 ml/min (HCC) Pre-transplant evaluation for chronic kidney disease HEPATITIS B CORE Routine 10/28/2018 11:46 Essential Results for this ANTIBODY, IGM AM CDT hypertension procedure are in Diabetes mellitus the results due to underlying section. 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, without long-term current use of insulin (HCC) CKD (chronic kidney disease) stage 4, GFR 15-29 ml/min (HCC) Pre-transplant evaluation for chronic kidney disease HEPATITIS B SURFACE Routine 10/28/2018 11:46 Essential Results for this ANTIGEN AM CDT hypertension procedure are in Diabetes mellitus the results due to underlying section. 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, without long-term current use of insulin (HCC) CKD (chronic kidney disease) stage 4, GFR 15-29 ml/min (HCC) Pre-transplant evaluation for chronic kidney disease HEPATITIS B SURFACE Routine 10/28/2018 11:46 Essential Results for this ANTIBODY AM CDT hypertension procedure are in Diabetes mellitus the results due to underlying section. 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, without long-term current use of insulin ([facility]) CKD (chronic kidney disease) stage 4, GFR 15-29 ml/min (HCC) Pre-transplant evaluation for chronic kidney disease GAMMA GLUTAMYL Routine 10/28/2018 11:46 Essential Results for this TRANSFERASE (GGT) AM CDT hypertension procedure are in Diabetes mellitus the results due to underlying section. 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, without long-term current use of insulin ([facility]) CKD (chronic kidney disease) stage 4, GFR 15-29 ml/min (HCC) Pre-transplant evaluation for chronic kidney disease EBV ANTIBODY, IGM Routine 10/28/2018 11:46 Essential Results for this AM CDT hypertension procedure are in Diabetes mellitus the results due to underlying section. 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, without long-term current use of insulin ([facility]) CKD (chronic kidney disease) stage 4, GFR 15-29 ml/min (HCC) Pre-transplant evaluation for chronic kidney disease EBV ANTIBODY, IGG Routine 10/28/2018 11:46 Essential Results for this AM CDT hypertension procedure are in Diabetes mellitus the results due to underlying section. 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, without long-term current use of insulin ([facility]) CKD (chronic kidney disease) stage 4, GFR 15-29 ml/min ([facility]) Pre-transplant evaluation for chronic kidney disease COMPREHENSIVE METABOLIC Routine 10/28/2018 11:46 Essential Results for this PANEL AM CDT hypertension procedure are in Diabetes mellitus the results due to underlying section. 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, without long-term current use of insulin ([facility]) CKD (chronic kidney disease) stage 4, GFR 15-29 ml/min (HCC) Pre-transplant evaluation for chronic kidney disease CYTOMEGALOVIRUS Routine 10/28/2018 11:46 Essential Results for this ANTIBODY, IGM AM CDT hypertension procedure are in Diabetes mellitus the results due to underlying section. 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, without long-term current use of insulin ([facility]) CKD (chronic kidney disease) stage 4, GFR 15-29 ml/min (HCC) Pre-transplant evaluation for chronic kidney disease CYTOMEGALOVIRUS Routine 10/28/2018 11:46 Essential Results for this ANTIBODY, IGG AM CDT hypertension procedure are in Diabetes mellitus the results due to underlying section. 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, without long-term current use of insulin ([facility]) CKD (chronic kidney disease) stage 4, GFR 15-29 ml/min (HCC) Pre-transplant evaluation for chronic kidney disease CBC W/PLT COUNT & AUTO Routine 10/28/2018 11:46 Essential Results for this DIFFERENTIAL AM CDT hypertension procedure are in Diabetes mellitus the results due to underlying section. 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, without long-term current use of insulin (HCC) CKD (chronic kidney disease) stage 4, GFR 15-29 ml/min (HCC) Pre-transplant evaluation for chronic kidney disease HEMOGLOBIN A1C Routine 10/28/2018 11:46 Essential Results for this AM CDT hypertension procedure are in Diabetes mellitus the results due to underlying section. 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, without long-term current use of insulin (HCC) CKD (chronic kidney disease) stage 4, GFR 15-29 ml/min (HCC) Pre-transplant evaluation for chronic kidney disease LIPID PANEL Routine 10/28/2018 11:46 Essential Results for this AM CDT hypertension procedure are in Diabetes mellitus the results due to underlying section. 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, without long-term current use of insulin (HCC) CKD (chronic kidney disease) stage 4, GFR 15-29 ml/min (HCC) Pre-transplant evaluation for chronic kidney disease HLA TYPING CII Routine 10/28/2018 11:46 Essential Results for this AM CDT hypertension procedure are in Diabetes mellitus the results due to underlying section. 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, without long-term current use of insulin (HCC) CKD (chronic kidney disease) stage 4, GFR 15-29 ml/min (HCC) Pre-transplant evaluation for chronic kidney disease HLA TYPING CI Routine 10/28/2018 11:46 Essential Results for this AM CDT hypertension procedure are in Diabetes mellitus the results due to underlying section. 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, without long-term current use of insulin (HCC) CKD (chronic kidney disease) stage 4, GFR 15-29 ml/min (HCC) Pre-transplant evaluation for chronic kidney disease FLOW PRA CLASS II WITH Routine 10/28/2018 11:46 Essential Results for this REFLEX TO ANTIBODY AM CDT hypertension procedure are in SPECIFICITY Diabetes mellitus the results due to underlying section. 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, without long-term current use of insulin (HCC) CKD (chronic kidney disease) stage 4, GFR 15-29 ml/min (HCC) Pre-transplant evaluation for chronic kidney disease FLOW PRA CLASS I WITH Routine 10/28/2018 11:46 Essential Results for this REFLEX TO ANTIBODY AM CDT hypertension procedure are in SPECIFICITY Diabetes mellitus the results due to underlying section. 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, without long-term current use of insulin ([facility]) CKD (chronic kidney disease) stage 4, GFR 15-29 ml/min ([facility]) Pre-transplant evaluation for chronic kidney disease after 11/28/2017 Results TRANSFUSION SERVICE REPORT - SCAN (10/29/2018 6:05 PM CDT) Narrative Performed At Type and Screen, Automated (10/28/2018 12:00 PM CDT) ABO/RH AUTOMATED (BEAKER) O POSITIVE [facility] Ab Scrn NEGATIVE [facility] Specimen Blood Performing Organization Address City/State/Zipcode Phone Number [facility] [address] [place] [address] Urinalysis, Routine (10/28/2018 11:47 AM CDT) Color, UA Light Yellow [facility] Clarity, UA Clear [facility] Specific [place], UA 1.012 1.001 - 1.035 [facility] pH, UA 6.0 5.0 - 8.0 [facility] Protein, UA 300 mg/dL (A) Negative [facility] Glucose, UA 500 mg/dL (A) Negative [facility] Ketones, UA Negative Negative [facility] Bilirubin, UA Negative Negative [facility] Blood, UA Small (A) Negative [facility] Nitrite, UA Negative Negative [facility] Leukocytes, UA Negative Negative [facility] Urobilinogen, UA 0.2 0.2 - 1.0 mg/dL [facility] RBC, UA 2 /HPF [facility] WBC, UA 5 /HPF [facility] Bacteria, UA Rare [facility] Mucus Rare [facility] Squam Epithel, UA 1 /HPF [facility] Specimen Source [facility] Specimen Urine Performing Organization Address City[facility] Phone Number [facility] [address] [place] [phone] [place] Urine Culture (10/28/2018 11:47 AM CDT) Result <10,000 col/mL skin jamey [facility] Specimen Urine Performing Organization Address City/[facility]owi Phone Number [facility] [address] [place] [address] [place] HLA TYPING CII (10/28/2018 11:46 AM CDT) HLA-DR AG1 7 [facility] HLA-DR AG2 17 [facility] HLA-DR AG3-1 [facility] HLA-DR AG3-2 52 [facility] HLA-DR AG4-1 53 [facility] HLA-DR AG4-2 [facility] HLA-DR AG5-1 [facility] HLA-DR AG5-2 [facility] HLA-DQA1 AG 1-1 02 [facility] HLA-DQA1 AG 1-2 05 [facility] HLA-DQB1 AG 1-1 2 [facility] HLA-DQB1 AG 1-2 2 [facility] HLA-DPA1 AG 1-1 02 [facility] HLA-DPA1 AG 1-2 02 [facility] HLA-DPB1 AG 1-1 01:01 [facility] HLA-DPB1 AG 1-2 11:01 [facility] HLA-AG Notes [facility] HLA-AG Report Comments [facility] Specimen Blood Narrative Performed At Disclaimer: [facility] This test was developed and its performance characteristics determined by the [facility] Laboratory. It has not been cleared or approved by the U.S. Food and Drug Administration. The FDA has determined that such clearance or approval is not necessary. This test is used for clinical purposes. It should not be regarded as investigational or for research. This laboratory is certified under the Clinical Laboratory Improvement Amendments of 1988 (CLIA-88) as qualified to perform high complexity clinical laboratory testing. Performing Organization Address City/[facility] Phone Number [facility] HLA TEST[facility] ONE Daryl Siegel, MS: DANILO LOPEZ [address] [id number], CLIA#[id number] CAP#[id number] UNOS#[id number] HLA TYPING CI (10/28/2018 11:46 AM CDT) HLA-A AG1 29 [facility] HLA TEST[facility] HLA-A AG2 1 [facility] TEST[facility] HLA-B AG1 44 [facility] HLA TESTING HLA-B AG2 8 [facility] HLA TESTING HLA-C AG1 16 [facility] HLA TESTING HLA-C AG2 7 [facility] HLA TESTING HLA-B BW1 4 [facility] HLA TESTING HLA-B BW2 6 [facility] TEST[facility] HLA-AG Notes [facility] HLA-AG Report Comments [facility] Specimen Blood Narrative Performed At Disclaimer: [facility] TEST[facility] This test was developed and its performance characteristics determined by the [facility] Laboratory. It has not been cleared or approved by the U.S. Food and Drug Administration. The FDA has determined that such clearance or approval is not necessary. This test is used for clinical purposes. It should not be regarded as investigational or for research. This laboratory is certified under the Clinical Laboratory Improvement Amendments of 1988 (CLIA-88) as qualified to perform high complexity clinical laboratory testing. Performing Organization Address [place]/[facility] Phone Number [facility] ONE Daryl Siegel, MS: JESSICA, DANILO [address]387 [id number], CLIA#[id number] CAP#[id number] UNOS#[id number] FLOW PRA CLASS II WITH REFLEX TO ANTIBODY SPECIFICITY (10/28/2018 11:46 AM CDT) Flow Class II Percent Positive 0 [facility] TEST[facility] Flow Class Report Comments [facility] Specimen Blood Narrative Performed At Disclaimer: [facility] TEST[facility] This test was developed and its performance characteristics determined by the [facility] Laboratory. It has not been cleared or approved by the U.S. Food and Drug Administration. The FDA has determined that such clearance or approval is not necessary. This test is used for clinical purposes. It should not be regarded as investigational or for research. This laboratory is certified under the Clinical Laboratory Improvement Amendments of 1988 (CLIA-88) as qualified to perform high complexity clinical laboratory testing. Performing Organization Address City/State/[facility] Phone Number [facility] TEST[facility] ONE Daryl Siegel, MS: DANILO LOPEZ 58[address] [id number], CLIA#[id number] CAP#[id number] UNOS#[id number] FLOW PRA CLASS I WITH REFLEX TO ANTIBODY SPECIFICITY (10/28/2018 11:46 AM CDT) Flow Class I Percent Positive 15 [facility] Flow Class Report Comments [facility] Specimen Blood Narrative Performed At Disclaimer: [facility] TEST[facility] This test was developed and its performance characteristics determined by the [facility] Laboratory. It has not been cleared or approved by the U.S. Food and Drug Administration. The FDA has determined that such clearance or approval is not necessary. This test is used for clinical purposes. It should not be regarded as investigational or for research. This laboratory is certified under the Clinical Laboratory Improvement Amendments of 1988 (CLIA-88) as qualified to perform high complexity clinical laboratory testing. Performing Organization Address [facility] Phone Number [facility] ONE Daryl Siegel, MS: DANILO LOPEZ [address]89[address] [id number], CLIA#[id number] CAP#[id number] UNOS#[id number] AB SPECIFICITY CLASS I (10/28/2018 11:46 AM CDT) AB Specificity Class I NO CLASS I ANTIBODY [facility] HLA TEST[facility] DETECTED WITH MFIs > 4000 AB Specificity Titr Class [facility] TEST[facility] Report Specimen Blood Narrative Performed At Disclaimer: [facility] TEST[facility] This test was developed and its performance characteristics determined by the [facility] Laboratory. It has not been cleared or approved by the U.S. Food and Drug Administration. The FDA has determined that such clearance or approval is not necessary. This test is used for clinical purposes. It should not be regarded as investigational or for research. This laboratory is certified under the Clinical Laboratory Improvement Amendments of 1988 (CLIA-88) as qualified to perform high complexity clinical laboratory testing. Performing Organization Address City/State/[facility] Phone Number [facility] ONE Daryl Siegel, MS: DANILO LOPEZ [address] [id number], CLIA#[id number] CAP#[id number] UNOS#[id number] T Spot TB (10/28/2018 11:46 AM CDT) T-Spot TB Negative [facility] Neg Ctrl Spot Count 0 [facility] Panel A Spot 0 [facility] Panel B Spot 0 [facility] Pos Ctrl Spot Ct 0 [facility] Scan Result [facility] Specimen Blood Narrative Performed At Performing Organization Address City/State/Zipcode Phone Number [facility] [address] [place] [address] LABORATORIES [address] PT/aPTT (10/28/2018 11:46 AM CDT) Protime 14.7 11.7 - 14.[address] [facility] INR 1.1 <=5.9 [facility] PTT 28.5 22.5 - 36.[address] [facility] Specimen Blood Narrative Performed At RECOMMENDED COUMADIN/WARFARIN INR THERAPY [facility] RANGES STANDARD DOSE: 2.0 - 3.0 Includes: PROPHYLAXIS for venous thrombosis, systemic embolization; TREATMENT for venous thrombosis and/or pulmonary embolus. HIGH RISK: Target INR is 2.5-3.5 for patients with mechanical heart valves. Performing Organization Address City/State/Zipcode Phone Number [address] [address] CENTER HIV-1 Antigen with HIV-1/2 Antibody (10/28/2018 11:46 AM CDT) HIV-1 Antigen with HIV 1&2 NON-REACTIVE Nonreactive [facility] Specimen Blood Performing Organization Address City/State/Zipcode Phone Number [address] [address] [phone] CENTER CBC with platelet count + automated diff (10/28/2018 11:46 AM CDT) WBC 4.6 3.5 - 10.5 K/L [facility] RBC 4.64 4.63 - 6.08 M/L [facility] Hemoglobin 12.9 (L) 13.7 - 17.5 GM/DL [facility] Hematocrit 39.5 (L) 40.1 - 51.0 % [facility] MCV 85.1 79.0 - 92.[address] [facility] MCH 27.8 25.7 - 32.[address] [facility] MCHC 32.7 32.3 - 36.5 GM/DL [facility] RDW 12.8 11.6 - 14.4 % [facility] Platelets 147 (L) 150 - 450 K/CU MM [facility] MPV 10.7 9.4 - 12.[address] [facility] nRBC 0 0 - 0 /[address] [facility] % Neutros 70 % [facility] % Lymphs 20 % [facility] % Monos 7 % [facility] % Eos 3 % [facility] % Baso 0 % [facility] # Neutros 3.21 1.78 - 5.38 K/L [facility] # Lymphs 0.92 (L) 1.32 - 3.57 K/L [facility] # Monos 0.33 0.30 - 0.82 K/L [facility] # Eos 0.12 0.04 - 0.54 K/L [facility] # Baso 0.02 0.01 - 0.08 K/L [facility] Immature Granulocytes-Relative 0 0 - 1 % [facility] Specimen Blood Performing Organization Address City/State/Zipcode Phone Number [facility] [address] [place] [address] CENTER Hepatitis C Antibody (10/28/2018 11:46 AM CDT) Hepatitis C Ab NON-REACTIVE Nonreactive [facility] Specimen Blood Performing Organization Address City/[facility] Phone Number [address] [address] [place] Cytomegalovirus antibody, IgM (10/28/2018 11:46 AM CDT) CMV IGM Negative Negative, Equivocal [facility] Specimen Blood Narrative Performed At CMV IgM Result Interpretation: [facility] </=0.8 Al Negative 0.9-1.0 Al Equivocal >/=1.1 Al Positive Performing Organization Address [facility] Phone Number [address] [address] [place] Hepatitis B core antibody, IgM (10/28/2018 11:46 AM CDT) Hep B C IgM NON-REACTIVE Nonreactive [facility] Specimen Blood Performing Organization Address City/[facility] Phone Number [address] [address] [phone] CENTER EBV-VCA antibody, IgM (10/28/2018 11:46 AM CDT) AYAN MARIA VIRAL CAPSID Positive (A) Negative, Equivocal [facility] ANTIGEN IGM [facility] Specimen Blood Narrative Performed At Ayan Maria Viral Capsid Antigen IgM Result [facility] Interpretation: </=0.8 Al Negative 0.9-1.0 Al Equivocal >/=1.1 Al Positive Performing Organization Address [facility] Phone Number [address] [address] CENTER EBV-VCA antibody, IgG (10/28/2018 11:46 AM CDT) AYAN MARIA VIRAL CAPSID Positive (A) Negative, Equivocal [facility] ANTIGEN [facility] Specimen Blood Narrative Performed At Ayan Maria Viral Capsid Antigen IgG Result [facility] Interpretation: </=0.8 Al Negative 0.9-1.0 Al Equivocal >/=1.1 Al Positive Performing Organization Address [facility] Phone Number [address] [address] [phone] [place] Blood typing, automated (10/28/2018 11:46 AM CDT) ABO/RH AUTOMATED (BEAKER) O POSITIVE [facility] Specimen Blood Performing Organization Address [facility] Phone Number [address] [address] RPR (10/28/2018 11:46 AM CDT) RPR Nonreactive Nonreactive [facility] Specimen Blood Performing Organization Address [facility] Phone Number [address] [address] [place] Hepatitis B surface antibody (10/28/2018 11:46 AM CDT) Hep B S Ab <8.0 <8.0 mIU/mL [facility] Specimen Blood Performing Organization Address [facility] Phone Number [address] [address] [phone] [place] Hepatitis B surface antigen (10/28/2018 11:46 AM CDT) hepatitis B Surface Ag NON-REACTIVE Nonreactive [facility] Specimen Blood Performing Organization Address [facility] Phone Number [address] [address] [phone] [place] Cytomegalovirus antibody, IgG (10/28/2018 11:46 AM CDT) CYTOMEGALOVIRUS, IGG Negative Negative, Equivocal [facility] Specimen Blood Narrative Performed At CMV IgG Result Interpretation: [facility] </=0.8 Al Negative 0.9-1.0 Al Equivocal >/=1.1 AlPositive Performing Organization Address City/[facility] Phone Number [address] [address] [phone] CENTER Prothrombin time/INR (10/28/2018 11:46 AM CDT) Protime 14.7 11.7 - 14.[address] [facility] INR 1.1 <=5.9 [facility] Specimen Blood Narrative Performed At RECOMMENDED COUMADIN/WARFARIN INR THERAPY [facility] RANGES STANDARD DOSE: 2.0 - 3.0 Includes: PROPHYLAXIS for venous thrombosis, systemic embolization; TREATMENT for venous thrombosis and/or pulmonary embolus. HIGH RISK: Target INR is 2.5-3.5 for patients with mechanical heart valves. Performing Organization Address City/[facility] Phone Number [address] [address] CENTER Direct [facility] ([place])/Direct [place]ree (10/28/2018 11:46 AM CDT) Direct [facility]-IGG NEGATIVE [facility] Direct [facility]-C3B, C3D NEGATVIE [facility] Specimen Blood Performing Organization Address [facility] Phone Number [address] [address] Varicella Zoster Antibody, IgG (10/28/2018 11:46 AM CDT) Varicella IgG 3.2 [facility] Specimen Blood Narrative Performed At VARICELLA ZOSTER RESULT INTERPRETATIONS: [facility] <=0.8 AlNonreactive:Presumed non-immune to VZV 0.9-1.0 AlEquivocal >=1.1 AlReactive:Presumed immune to VZV Performing Organization Address [facility] Phone Number [address] [address] CENTER Uric Acid (10/28/2018 11:46 AM CDT) Uric Acid 7.3 (H) 2.6 - 7.2 mg/dL [facility] Specimen Blood Performing Organization Address City/[facility]/Zipcode Phone Number [address] [address] [place] Phosphorus (10/28/2018 11:46 AM CDT) Phosphorus 3.2 2.3 - 4.7 mg/dL [facility] Specimen Blood Performing Organization Address City/[facility] Phone Number [address] [address] [place] PTH, Intact (10/28/2018 11:46 AM CDT) PTH 298.0 (H) 8.5 - 72.5 pg/mL [facility] Specimen Blood Performing Organization Address [facility] Phone Number [address] [address] [phone] [place] Lactate Dehydrogenase (LDH) (10/28/2018 11:46 AM CDT) LDH 220 125 - 220 U/L [facility] Specimen Blood Performing Organization Address [facility] Phone Number [address] [address] [place] Hemoglobin A1c (10/28/2018 11:46 AM CDT) Hemoglobin A1C 9.0 (H) 4.3 - 6.1 % [facility] Specimen Blood Performing Organization Address City/[facility] Phone Number [address] [address] CENTER Gamma Glutamyl Transferase (GGT) (10/28/2018 11:46 AM CDT) GGT 17 9 - 64 U/L [facility] Specimen Blood Performing Organization Address City/[facility] Phone Number [address] [address] [place] Lipid panel (10/28/2018 11:46 AM CDT) Triglycerides 396 mg/dL [facility] Cholesterol 244 mg/dL [facility] HDL 40 mg/dL [facility] LDL Calculated 125 mg/dL [facility] Specimen Blood Narrative Performed At Triglyceride Reference Range: [facility] Low Risk <150 [id number] High Risk 200-499 Very High Risk>=500 Cholesterol Reference Range: Low Risk <200 [id number] High Risk>240 HDL Cholesterol Reference Range: Low Risk >=60 High Risk <40 LDL Cholesterol Reference Range: Optimal<100 Near [id number] Very High >=190 Performing Organization Address City/State/Zipcode Phone Number [facility] [address] [place] [address] CENTER Comprehensive metabolic panel (10/28/2018 11:46 AM CDT) Protein, Total 6.5 6.0 - 8.3 gm/dL [facility] Albumin 3.6 3.5 - 5.0 g/dL [facility] Alkaline Phosphatase 82 40 - 150 U/L [facility] Total Bilirubin 0.5 0.2 - 1.2 mg/dL [facility] Sodium 140 136 - 145 meq/L [facility] Potassium 4.4 3.5 - 5.1 meq/L [facility] Chloride 105 98 - 107 meq/L [facility] CO2 25 22 - 29 meq/L [facility] BUN 41 (H) 7 - 21 mg/dL [facility] Creatinine 3.31 (H) 0.57 - 1.25 mg/dL [facility] Glucose 158 (H) 70 - 105 mg/dL [facility] Calcium 9.4 8.4 - 10.2 mg/dL [facility] AST 17 5 - 34 U/L [facility] ALT 17 6 - 55 U/L [facility] EGFR 20Comment: ESTIMATED GFR mL/min/1.73 sq m [facility] IS NOT ACCURATE [facility] CREATININE CLEARANCE IN PREDICTING GLOMERULAR FILTRATION RATE. ESTIMATED GFR IS NOT APPLICABLE FOR DIALYSIS PATIENTS. Specimen Blood Performing Organization Address City/State/Zipcode Phone Number [facility] [address] [place] [address] CENTER after 11/28/2017 Insurance Payer Benefit Plan / Group Subscriber ID Type Phone Address [employer] - MEDICARE MGD [employer] MEDICARE ADV xxxxxxxxx Maps Contracted CARE [employer] - MEDICARE MGD [employer] GOLD CHOICE xxxxxxxxx Maps Contracted CARE [place] (Home) [place] [address] Advance Directives For more information, please contact:[facility] [place] [address] [phone] Code Status Date Activated Date Inactivated Comments Full Code 03/02/2016 4:13 AM 03/05/2016 8:24 PM This code status was determined by: Patient Full Code 09/15/2014 4:55 PM 09/23/2014 5:29 PM This code status was determined by: Patient Full Code 09/14/2014 1:52 AM 09/15/2014 12:34 PM This code status was determined by: Patient Full Code 09/08/2014 10:38 PM 09/09/2014 10:20 PM This code status was determined by: Patient
--- OUTSIDE RECORDS SUMMARY | 2018-11-29 20:33 | XMS REPORT ---
:1970 Author Organization [facility]neut Address [address] [place] [address] Dr. Lieberman [address] [place] [id number] Care Team Providers Name Role Phone ANNA DE LEON Unavailable Unavailable Problems This patient has no known problems. Allergies, Adverse Reactions, Alerts This patient has no known allergies or adverse reactions. Medications This patient has no known medications. Results Test Description Test Time Test Comments Text Results Atomic Results Result Comments URINE CULTURE 2018-10-30 11:24:00 Test Item Value Reference Range Comments CULTURE (BEAKER) (test jtzl=7596) <10,000 col/mL skin jamey [id number] 14:11:00 Test Item Value Reference Range Comments RPR SCREEN (BEAKER) (test wfzn=597) Nonreactive Nonreactive HEMOGLOBIN [id number] 12:51:00 Test Item Value Reference Range Comments HEMOGLOBIN A1C (BEAKER) (test ttrw=141) 9.0 % 4.3-6.1 CYTOMEGALOVIRUS ANTIBODY, [id number] 05:57:00 Test Item Value Reference Range Comments CYTOMEGALOVIRUS, IGG (BEAKER) (test ogwh=9140) Negative Negative, Equivocal CMV IgG Result Interpretation: </=0.8 Al Negative 0.9-1.0 Al Equivocal &gt ;/=1.1 Al PositiveCYTOMEGALOVIRUS ANTIBODY, [id number] 05:57:00 Test Item Value Reference Range Comments CYTOMEGALOVIRUS IGM ANTIBODY (BEAKER) (test Negative Negative, Equivocal smsd=7935) CMV IgM Result Interpretation: </=0.8 Al Negative 0.9-1.0 Al Equivocal >/=1.1 Al PositiveEBV ANTIBODY, [id number] 05:57:00 Test Item Value Reference Range Comments FRANCISCO J GUAN VIRAL CAPSID ANTIGEN IGG (BEAKER) Positive Negative, Equivocal (test apdy=3495) Francisco J Guan Viral Capsid Antigen IgG Result Interpretation: </=0.8 Al Negative 0.9-1.0 Al Equivocal >/=1.1 Al PositiveEBV ANTIBODY, [id number] 05:57:00 Test Item Value Reference Range Comments FRANCISCO J GUAN VIRAL CAPSID ANTIGEN IGM (BEAKER) Positive Negative, Equivocal (test klpk=6557) Francisco J Guan Viral Capsid Antigen IgM Result Interpretation: </=0.8 Al Negative 0.9-1.0 Al Equivocal >/=1.1 Al PositiveVARICELLA ZOSTER ANTIBODY , [id number] 05:57:00 Test Item Value Reference Range Comments VARICELLA ZOSTER IGG (AL) (BEAKER) (test jjvq=5805) 3.2 VARICELLA ZOSTER RESULT INTERPRETATIONS: <=0.8 Al Nonreactive: Presumed non-immune to VZV 0.9-1.0 Al Equivocal >=1.1 Al Reactive: Presumed immune to VZVURINALYSIS W/ [id number] 15:06 :00 Test Item Value Reference Range Comments COLOR (BEAKER) (test vegp=548) Light Yellow CLARITY (BEAKER) (test ylav=662) Clear SPECIFIC GRAVITY UA (BEAKER) (test xagh=199) 1.012 1.001-1.035 PH UA (BEAKER) (test oamj=886) 6.0 5.0-8.0 PROTEIN UA (BEAKER) (test gdja=373) 300 mg/dL Negative GLUCOSE UA (BEAKER) (test pusn=012) 500 mg/dL Negative KETONES UA (BEAKER) (test bjxm=151) Negative Negative BILIRUBIN UA (BEAKER) (test ovxl=630) Negative Negative BLOOD UA (BEAKER) (test omag=755) Small Negative NITRITE UA (BEAKER) (test xdok=350) Negative Negative LEUKOCYTE ESTERASE UA (BEAKER) (test ndhk=343) Negative Negative UROBILINOGEN UA (BEAKER) (test vfhm=021) 0.2 mg/dL 0.2-1.0 RBC UA (BEAKER) (test bynh=727) 2 /HPF WBC UA (BEAKER) (test unnc=109) 5 /HPF BACTERIA (BEAKER) (test iasw=800) Rare MUCUS (BEAKER) (test xyvi=1295) Rare SQUAMOUS EPITHELIAL (BEAKER) (test jsxi=359) 1 /HPF SOURCE(BEAKER) (test ymsg=7471) HEPATITIS B SURFACE [id number] 14:38:00 Test Item Value Reference Range Comments HEPATITIS B SURFACE ANTIBODY (BEAKER) (test < mIU/mL <8.0 mvht=864) HEPATITIS B SURFACE [id number] 14:27:00 Test Item Value Reference Range Comments HEPATITIS B SURFACE ANTIGEN (2) (BEAKER) (test Nonreactive Nonreactive iwil=8851) HEPATITIS B CORE ANTIBODY, [id number] 14:27:00 Test Item Value Reference Range Comments HEPATITIS B CORE IGM ANTIBODY (BEAKER) (test Nonreactive Nonreactive srdp=218) HEPATITIS C [id number] 14:27:00 Test Item Value Reference Range Comments HEPATITIS C ANTIBODY (BEAKER) (test xptz=015) Nonreactive Nonreactive HIV-1 ANTIGEN WITH HIV-1/2 [id number] 14:27:00 Test Item Value Reference Range Comments HIV-1 ANTIGEN WITH HIV 1\T\2 ANTIBODY (2) Nonreactive Nonreactive (BEAKER) (test hzyd=5744) COMPREHENSIVE METABOLIC [id number] 14:01:00 Test Item Value Reference Range Comments TOTAL PROTEIN (BEAKER) 6.5 gm/dL 6.0-8.3 (test pbsm=453) ALBUMIN (BEAKER) (test 3.6 g/dL 3.5-5.0 idrx=1021) ALKALINE PHOSPHATASE 82 U/L 40-150 (BEAKER) (test lezi=131) BILIRUBIN TOTAL (BEAKER) 0.5 mg/dL 0.2-1.2 (test etwm=949) SODIUM (BEAKER) (test 140 meq/L 136-145 xhlo=023) POTASSIUM (BEAKER) (test 4.4 meq/L 3.5-5.1 udtp=740) CHLORIDE (BEAKER) (test 105 meq/L 98-107 tzme=479) CO2 (BEAKER) (test 25 meq/L 22-29 rmso=282) BLOOD UREA NITROGEN 41 mg/dL 7-21 (BEAKER) (test vlkb=041) CREATININE (BEAKER) (test 3.31 mg/dL 0.57-1.25 uylm=585) GLUCOSE RANDOM (BEAKER) 158 mg/dL 70-105 (test iegr=020) CALCIUM (BEAKER) (test 9.4 mg/dL 8.4-10.2 myhd=482) AST (SGOT) (BEAKER) (test 17 U/L 5-34 gpsg=335) ALT (SGPT) (BEAKER) (test 17 U/L 6-55 habr=558) EGFR (BEAKER) (test 20 mL/min/1.73 sq m ESTIMATED GFR IS NOT zkkt=3848) ACCURATE CREATININE CLEARANCE IN PREDICTING GLOMERULAR FILTRATION RATE. ESTIMATED GFR IS NOT APPLICABLE FOR DIALYSIS PATIENTS. PTH, [id number] 13:54:00 Test Item Value Reference Range Comments PARATHYROID HORMONE INTACT (BEAKER) (test 298.0 pg/mL 8.5-72.5 waln=876) URIC [id number] 13:52:00 Test Item Value Reference Range Comments URIC ACID (BEAKER) (test dgch=278) 7.3 mg/dL 2.6-7.2 [id number] 13:52:00 Test Item Value Reference Range Comments PHOSPHORUS (BEAKER) (test royh=101) 3.2 mg/dL 2.3-4.7 LIPID [id number] 13:52:00 Test Item Value Reference Range Comments TRIGLYCERIDES (BEAKER) (test xrse=957) 396 mg/dL CHOLESTEROL (BEAKER) (test xkfk=714) 244 mg/dL HDL CHOLESTEROL (BEAKER) (test frgp=574) 40 mg/dL LDL CHOLESTEROL CALCULATED (BEAKER) (test 125 mg/dL yuii=793) Triglyceride Reference Range: Low Risk <150 Borderline 150- 199 High Risk 200-499 Very High Risk >=500Cholesterol Reference Range: Low Risk <200 Borderline 200-239 High Risk > 240HDL Cholesterol Reference Range: Low Risk >=60 High Risk <40LDL Cholesterol Reference Range: Optimal <100 Near Optimal 100-129 Borderline 130-159 High 160-189 Very High >=190GAMMA GLUTAMYL TRANSFERASE (GGT)2018-10-28 13:52:00 Test Item Value Reference Range Comments GAMMA GLUTAMYL TRANSFERASE (BEAKER) (test jlgj=761) 17 U/L 9-64 LACTATE DEHYDROGENASE (LDH)2018-10-28 13:52:00 Test Item Value Reference Range Comments LACTATE DEHYDROGENASE (BEAKER) (test rxdt=506) 220 U/L 125-220 [id number] 13:40:00 Test Item Value Reference Range Comments PROTIME (BEAKER) (test nazh=411) 14.7 seconds 11.7-14.7 INR (BEAKER) (test favg=162) 1.1 <=5.9 PARTIAL THROMBOPLASTIN TIME (BEAKER) (test 28.5 seconds 22.5-36.0 agxd=298) RECOMMENDED COUMADIN/WARFARIN INR THERAPY RANGESSTANDARD DOSE: 2.0 - 3.0 Includes: PROPHYLAXIS forvenous thrombosis, systemic embolization; TREATMENT for venous thrombosis and/or pulmonary embolus.HIGH RISK: Target INR is 2.5-3.5 for patients with mechanical heart valves.PROTHROMBIN [id number] 13:39: 00 Test Item Value Reference Range Comments PROTIME (BEAKER) (test thiw=387) 14.7 seconds 11.7-14.7 INR (BEAKER) (test uvfh=564) 1.1 <=5.9 RECOMMENDED COUMADIN/WARFARIN INR THERAPY RANGESSTANDARD DOSE: 2.0 - 3.0 Includes: PROPHYLAXIS forvenous thrombosis, systemic embolization; TREATMENT for venous thrombosis and/or pulmonary embolus.HIGH RISK: Target INR is 2.5-3.5 for patients with mechanical heart valves.CBC W/PLT COUNT & AUTO [id number] 13:27:00 Test Item Value Reference Range Comments WHITE BLOOD CELL COUNT (BEAKER) (test vwsu=261) 4.6 K/ L 3.5-10.5 RED BLOOD CELL COUNT (BEAKER) (test ojos=050) 4.64 M/ L 4.63-6.08 HEMOGLOBIN (BEAKER) (test gbzl=694) 12.9 GM/DL 13.7-17.5 HEMATOCRIT (BEAKER) (test weoj=730) 39.5 % 40.1-51.0 MEAN CORPUSCULAR VOLUME (BEAKER) (test griv=165) 85.1 fL 79.0-92.2 MEAN CORPUSCULAR HEMOGLOBIN (BEAKER) (test 27.8 pg 25.7-32.2 qosj=167) MEAN CORPUSCULAR HEMOGLOBIN CONC (BEAKER) (test 32.7 GM/DL 32.3-36.5 vfnd=080) RED CELL DISTRIBUTION WIDTH (BEAKER) (test 12.8 % 11.6-14.4 vagt=466) PLATELET COUNT (BEAKER) (test lxjn=487) 147 K/CU MM 150-450 MEAN PLATELET VOLUME (BEAKER) (test vgrj=370) 10.7 fL 9.4-12.4 NUCLEATED RED BLOOD CELLS (BEAKER) (test 0 /100 WBC 0-0 iyzv=076) NEUTROPHILS RELATIVE PERCENT (BEAKER) (test 70 % xxxp=384) LYMPHOCYTES RELATIVE PERCENT (BEAKER) (test 20 % rhub=956) MONOCYTES RELATIVE PERCENT (BEAKER) (test 7 % lntn=212) EOSINOPHILS RELATIVE PERCENT (BEAKER) (test 3 % svam=637) BASOPHILS RELATIVE PERCENT (BEAKER) (test 0 % fcie=675) NEUTROPHILS ABSOLUTE COUNT (BEAKER) (test 3.21 K/ L 1.78-5.38 osvx=743) LYMPHOCYTES ABSOLUTE COUNT (BEAKER) (test 0.92 K/ L 1.32-3.57 xmvq=011) MONOCYTES ABSOLUTE COUNT (BEAKER) (test 0.33 K/ L 0.30-0.82 ynrg=239) EOSINOPHILS ABSOLUTE COUNT (BEAKER) (test 0.12 K/ L 0.04-0.54 ajcb=909) BASOPHILS ABSOLUTE COUNT (BEAKER) (test 0.02 K/ L 0.01-0.08 gews=382) IMMATURE GRANULOCYTES-RELATIVE PERCENT (BEAKER) 0 % 0-1 (test ghzj=4037)
[2018-11-29] MEDS ORDERED: ONDANSETRON 4 MG/2 ML VIAL ONE (21:00)
[2018-11-29] MEDS ORDERED: NA CHLORIDE 0.9% 500 ML ONE (21:01)
[2018-11-29] MEDS ORDERED: MORPHINE 4 MG/ML SYR ONE (22:51)
[2018-11-29 23:35] LABS: Absolute Lymphocytes (CBC) 1.1 K/uL (0.7-4.9); Absolute Monocytes 0.3 K/uL (0.1-1.3); Absolute Neutrophil 3.4 K/uL (1.8-8.0); Basophils % 0.8 % (0-1.3); Eosinophils % 2.3 % (0-4.4); Lymphocytes % 21.8 % (15.3-44.8); MPV 9.4 fL (7.6-11.3); Monocytes % 6.6 % (3.3-12.3); RBC Red Blood Cell Count 4.09 M/uL (4.33-5.43)
[2018-11-29 23:47] LABS: Albumin 3.3 g/dL (3.4-5.0); Bilirubin Direct 0.1 mg/dL (0-0.2); Bilirubin Total 0.3 mg/dL (0.2-1.0); Potassium 5.2 mmol/L (3.5-5.1); Protein, Total 6.8 g/dL (6.4-8.2)
[2018-11-30 00:11] LABS: Urine Blood 1+ (NEG); Urine Glucose 2+ (NEG); Urine Protein 3+ (NEG); Urine Specific Gravity 1.025 (1.005-1.030); Urine pH 5.5 (5.0-7.0)
[2018-11-30] MEDS ORDERED: SOD POLYSTYREN SUL 15 GM/60 ML UCUP ONE (00:40)
[2018-11-30] MEDS ORDERED: MORPHINE 4 MG/ML SYR ONE (00:40)
--- NOTE | 2018-11-30 01:32 | EDPHYS ---
Physician Documentation [facility] Name: Baltazar Granger Age: 48 yrs Sex: Male : 1970 Arrival Date: 11/29/2018 Time: 20:30 Bed 14 Private MD: Robert Fernandez HPI: 11/29 21:36 This 48 yrs old Male presents to ER via EMS with complaints of pm1 Nausea/Vomiting/Diarrhea. 21:36 The patient presents to the emergency department with vomiting, 3 times since the onset pm1 of symptoms, diarrhea, 3 times since the onset of symptoms, abdominal pain, of the left lower quadrant. Onset: The symptoms/episode began/occurred today. Possible causes: unknown. The symptoms are aggravated by nothing. The symptoms are alleviated by nothing. Associated signs and symptoms: Pertinent positives: Right flank pain that is attributed to atrophy of his right kidney, Pertinent negatives: dysuria, fever. Severity of symptoms: in the emergency department the symptoms are worse. Admitted on 11/21 for similar presentation of vomiting, diarrhea, right flank pain and dehydration. Has appointment tomorrow with initial appointment with renal transplant and surgery for dialysis port placement. Historical: - Allergies: 20:41 No Known Allergies; rr5 - Home Meds: 20:41 amlodipine 10 mg tab [Active]; atorvastatin 80 mg Oral tab 1 tab once daily [Active]; rr5 fenofibrate 160 mg Oral tab 1 tab once daily [Active]; gabapentin 100 mg Oral cap 3 caps 3 times per day [Active]; glimepiride 1 mg Oral tab 1 tab once daily [Active]; losartan 25 mg Oral tab 1 tab once daily [Active]; metoprolol succinate 25 mg Oral Tb24 1 tab once daily [Active]; omeprazole 20 mg Oral cpDR 1 cap once daily [Active]; tamsulosin 0.4 mg oral cp24 1 cap once daily [Active]; cyclobenzaprine 10 mg Oral tab 1 tab [Active]; - PMHx: 20:41 Diabetes - IDDM; ESRD; Hypertension; blind; rr5 - PSHx: 20:41 eye surgery; penile implant; benign tumor pancreas; rr5 - Immunization history:: Adult Immunizations up to date, Last tetanus immunization: up to date. - Social history:: Smoking status: Patient/guardian denies using tobacco, Patient/guardian denies using alcohol, street drugs. - Ebola Screening: : Patient negative for fever greater than or equal to 101.5 degrees Fahrenheit, and additional compatible Ebola Virus Disease symptoms Patient denies exposure to infectious person Patient denies travel to an Ebola-affected area in the 21 days before illness onset. ROS: 21:36 Constitutional: Negative for fever, chills, and weight loss, Eyes: Negative for injury, pm1 pain, redness, and discharge, ENT: Negative for injury, pain, and discharge, Neck: Negative for injury, pain, and swelling, Cardiovascular: Negative for chest pain, palpitations, and edema, Respiratory: Negative for shortness of breath, cough, wheezing, and pleuritic chest pain. 21:36 : Negative for injury, bleeding, discharge, and swelling, MS/Extremity: Negative for injury and deformity, Skin: Negative for injury, rash, and discoloration, Neuro: Negative for headache, weakness, numbness, tingling, and seizure. 21:36 Abdomen/GI: Positive for abdominal pain, nausea, vomiting, and diarrhea, of the left lower quadrant, Negative for constipation, hematemesis. 21:36 Back: Positive for flank pain, on the right. Exam: 21:36 Constitutional: This is a well developed, well nourished patient who is awake, alert, pm1 and in no acute distress. Head/Face: Normocephalic, atraumatic. ENT: Nares patent. No nasal discharge, no septal abnormalities noted. Tympanic membranes are normal and external auditory canals are clear. Oropharynx with no redness, swelling, or masses, exudates, or evidence of obstruction, uvula midline. Mucous membranes moist. 21:36 Neck: Trachea midline, no thyromegaly or masses palpated, and no cervical lymphadenopathy. Supple, full range of motion without nuchal rigidity, or vertebral point tenderness. No Meningismus. Chest/axilla: Normal chest wall appearance and motion. Nontender with no deformity. No lesions are appreciated. Cardiovascular: Regular rate and rhythm with a normal S1 and S2. No gallops, murmurs, or rubs. Normal PMI, no JVD. No pulse deficits. Respiratory: Lungs have equal breath sounds bilaterally, clear to auscultation and percussion. No rales, rhonchi or wheezes noted. No increased work of breathing, no retractions or nasal flaring. 21:36 Skin: Warm, dry with normal turgor. Normal color with no rashes, no lesions, and no evidence of cellulitis. MS/ Extremity: Pulses equal, no cyanosis. Neurovascular intact. Full, normal range of motion. 21:36 Eyes: Poor vision, right eye blind. 21:36 Abdomen/GI: Inspection: abdomen appears normal, Bowel sounds: normal, Palpation: mild abdominal tenderness, in the left lower quadrant, mass, is not appreciated, rebound tenderness, is not appreciated. 21:36 Back: pain, that is mild, of the right low back, normal spinal alignment noted, vertebral tenderness, is not appreciated. 21:36 Neuro: Orientation: is normal, Motor: is normal, moves all fours, Sensation: is normal, no obvious gross deficits, Gait: is steady, at a normal pace, without difficulty. Vital Signs: 20:35 BP 138 / 88; Pulse 76; Resp 17; Temp 98.2; Pulse Ox 97% ; Weight 111.58 kg; Height 6 rr5 ft. 0 in. (182.88 cm); Pain 10/10; 23:43 BP 146 / 89; Pulse 90; Resp 17 S; Pulse Ox 97% on R/A; jd3 11/30 01:22 BP 126 / 90; Pulse 61; Resp 17 S; Pulse Ox 95% on R/A; jd3 02:25 BP 149 / 97; Pulse 60; Resp 18 S; Pulse Ox 99% on R/A; jd3 03:24 BP 150 / 95; Pulse 62; Resp 17 S; Pulse Ox 98% on R/A; jd3 11/29 20:35 Body Mass Index 33.36 (111.58 kg, 182.88 cm) rr5 MDM: 11/29 20:32 Patient medically screened. pm1 11/30 01:25 Data reviewed: vital signs. Data interpreted: Pulse oximetry: on room air is 95 %. pm1 Interpretation: normal. Counseling: I had a detailed discussion with the patient and/or guardian regarding: the historical points, exam findings, and any diagnostic results supporting the discharge/admit diagnosis, lab results, radiology results, the need for further work-up and treatment in the hospital. 01:26 Physician consultation: Leonardo Aguilar MD was called at 01:26, was contacted at 01:26, pm1 regarding consult, patient's condition, Recommends admission for IV hydration, U/S bladder scan to make sure he is not retaining urine, carvajal catheter, monitor I\T\O, Dr. Wise will see the patient tomorrow morning. 11/29 20:45 Order name: Basic Metabolic Panel; Complete Time: 00:05 pm1 11/29 20:45 Order name: CBC with Diff; Complete Time: 23:40 pm1 11/29 20:45 Order name: Creatinine for Radiology; Complete Time: 00:05 pm1 11/29 20:45 Order name: Hepatic Function; Complete Time: 00:05 pm1 11/29 20:45 Order name: Lipase; Complete Time: 00:05 pm1 11/29 23:17 Order name: Urine Dipstick--Ancillary (enter results); Complete Time: 00:14 ar5 11/29 21:06 Order name: CT Stone Protocol pm1 11/29 20:45 Order name: IV Saline Lock; Complete Time: 22:55 pm1 11/29 20:45 Order name: Labs collected and sent; Complete Time: 22:55 pm1 11/29 20:46 Order name: Urine Dipstick-Ancillary (obtain specimen); Complete Time: 23:56 pm1 11/30 01:32 Order name: Bladder Scanner; Complete Time: 01:49 pm1 11/30 01:49 Order name: CONS Pharmacy Consult EDMN 11/30 01:49 Order name: CONS Physician Consult [facility] 11/30 01:49 Order name: Renal EDMS Administered Medications: 11/29 22:54 Drug: Zofran 4 mg Route: IVP; Site: right antecubital; jd3 23:50 Follow up: Response: No adverse reaction jd3 22:54 Drug: NS 0.9% 500 ml Route: IV; Rate: bolus; Site: right antecubital; jd3 11/30 00:30 Follow up: Response: No adverse reaction; IV Status: Completed infusion; IV Intake: jd3 500ml 11/29 22:54 Drug: morphine 4 mg Route: IVP; Site: right antecubital; jd3 23:50 Follow up: Response: No adverse reaction jd3 11/30 00:34 Drug: morphine 4 mg Route: IVP; Site: right antecubital; jd3 01:30 Follow up: Response: No adverse reaction jd3 00:34 Drug: Kayexalate 30 grams Route: PO; jd3 01:30 Follow up: Response: No adverse reaction jd3 02:15 Drug: NS 0.9% 1000 ml Route: IV; Rate: 125 ml/hr; Site: right antecubital; jd3 03:23 Follow up: Response: No adverse reaction; IV Status: Infusion continued upon admission jd3 03:22 Drug: Zofran 4 mg Route: IVP; Site: right antecubital; jd3 03:43 Follow up: Response: No adverse reaction jd3 Disposition: 11/30/18 01:31 Hospitalization ordered by Jerri Guthrie for Observation. Preliminary diagnosis are Dehydration, Chronic kidney disease, stage 4 (severe), Vomiting, Diarrhea, unspecified. - Bed requested for Telemetry/MedSurg (observation). - Status is Observation. jd3 - Condition is Stable. - Problem is new. - Symptoms have improved. UTI on Admission? No Addendum: 12/01/2018 11:18 Co-signature as Attending Physician, Robert Lou MD I agree with the assessment and c olmedo plan of care. Signatures: Dispatcher [employer] EDMS Yoli Ye RN RN Robert Lou MD MD cha Marinas, Patrick, [facility] pm1 Elliot Fallon RN RN jd3 Yasmany Saenz RN RN rr5 Corrections: (The following items were deleted from the chart) 11/30 02:07 01:32 Carvajal ordered. pm1 jd3 02:19 01:31 Hospitalization Ordered by Jerri Guthrie MD for Observation. Preliminary mw diagnosis is Dehydration; Chronic kidney disease, stage 4 (severe); Vomiting; Diarrhea, unspecified. Bed requested for Telemetry/MedSurg (observation). Status is Observation. Condition is Stable. Problem is new. Symptoms have improved. UTI on Admission? No. pm1 03:43 02:19 11/30/2018 01:31 Hospitalization Ordered by Jerri Guthrie MD for Observation. jd3 Preliminary diagnosis is Dehydration; Chronic kidney disease, stage 4 (severe); Vomiting; Diarrhea, unspecified. Bed requested for Telemetry/MedSurg (observation). Status is Observation. Condition is Stable. Problem is new. Symptoms have improved. UTI on Admission? No. mw
--- NOTE | 2018-11-30 01:32 | ER ---
Nurse's Notes [facility] Name: Baltazar Granger Age: 48 yrs Sex: Male : 1970 Arrival Date: 11/29/2018 Time: 20:30 Bed 14 Private MD: Diagnosis: Dehydration;Chronic kidney disease, stage 4 (severe);Vomiting;Diarrhea, unspecified Presentation: 11/29 20:30 Presenting complaint: EMS states: patient having nausea vomiting and diarrhea, newly rr5 diagnose of kidney failure. He informed his kidney doctor advised him to to ER. 20:30 Transition of care: patient was not received from another setting of care. Onset of rr5 symptoms was November 29, 2018. Risk Assessment: Do you want to hurt yourself or someone else? Patient reports no desire to harm self or others. Care prior to arrival: None. 20:30 Method Of Arrival: EMS: [facility] rr5 20:30 Acuity: PANCHITO 3 rr5 20:34 Note right eyes blind and left eye is partially blind as per EMS. rr5 11/30 01:23 Initial Sepsis Screen: Does the patient meet any 2 criteria? No. Patient's initial jd3 sepsis screen is negative. Does the patient have a suspected source of infection? No. Patient's initial sepsis screen is negative. Historical: - Allergies: 11/29 20:41 No Known Allergies; rr5 - Home Meds: 20:41 amlodipine 10 mg tab [Active]; atorvastatin 80 mg Oral tab 1 tab once daily [Active]; rr5 fenofibrate 160 mg Oral tab 1 tab once daily [Active]; gabapentin 100 mg Oral cap 3 caps 3 times per day [Active]; glimepiride 1 mg Oral tab 1 tab once daily [Active]; losartan 25 mg Oral tab 1 tab once daily [Active]; metoprolol succinate 25 mg Oral Tb24 1 tab once daily [Active]; omeprazole 20 mg Oral cpDR 1 cap once daily [Active]; tamsulosin 0.4 mg oral cp24 1 cap once daily [Active]; cyclobenzaprine 10 mg Oral tab 1 tab [Active]; - PMHx: 20:41 Diabetes - IDDM; ESRD; Hypertension; blind; rr5 - PSHx: 20:41 eye surgery; penile implant; benign tumor pancreas; rr5 - Immunization history:: Adult Immunizations up to date, Last tetanus immunization: up to date. - Social history:: Smoking status: Patient/guardian denies using tobacco, Patient/guardian denies using alcohol, street drugs. - Ebola Screening: : Patient negative for fever greater than or equal to 101.5 degrees Fahrenheit, and additional compatible Ebola Virus Disease symptoms Patient denies exposure to infectious person Patient denies travel to an Ebola-affected area in the 21 days before illness onset. Screenin:42 Abuse screen: Denies threats or abuse. Nutritional screening: No deficits noted. jd3 Tuberculosis screening: No symptoms or risk factors identified. Fall Risk Ambulatory Aid- None/Bed Rest/Nurse Assist (0 pts). Gait- Normal/Bed Rest/Wheelchair (0 pts) Mental Status- Oriented to own ability (0 pts). Total Farias Fall Scale indicates No Risk (0-24 pts). Assessment: 20:39 General: Appears uncomfortable, Behavior is calm, cooperative, appropriate for age. jd3 Pain: Complains of pain in low back area and abdomen Quality of pain is described as aching, tender. Neuro: Level of Consciousness is awake, alert, obeys commands, Oriented to person, place, time, situation, Appropriate for age. Cardiovascular: Heart tones present Capillary refill < 3 seconds Patient's skin is warm and dry. Respiratory: Airway is patent Respiratory effort is even, unlabored, Respiratory pattern is regular, symmetrical, Breath sounds are clear bilaterally. Denies shortness of breath. GI: Abdomen is round Bowel sounds present X 4 quads. Abd is soft X 4 quads Abdomen is tender to palpation in left lower quadrant Reports diarrhea, nausea, vomiting. : Reports pain in lower back. EENT: No signs and/or symptoms were reported regarding the EENT system. Derm: Skin is intact, Skin is dry, Skin is normal, Skin temperature is warm. Musculoskeletal: Circulation, motion, and sensation intact. Range of motion: intact in all extremities. 21:30 Reassessment: Patient appears in no apparent distress at this time. No changes from jd3 previously documented assessment. Patient and/or family updated on plan of care and expected duration. Pain level reassessed. Patient is alert, oriented x 3, equal unlabored respirations, skin warm/dry/pink. 22:30 Reassessment: Patient appears in no apparent distress at this time. No changes from jd3 previously documented assessment. Patient and/or family updated on plan of care and expected duration. Pain level reassessed. Patient is alert, oriented x 3, equal unlabored respirations, skin warm/dry/pink. 23:43 Reassessment: Patient appears in no apparent distress at this time. No changes from jd3 previously documented assessment. Patient and/or family updated on plan of care and expected duration. Pain level reassessed. Patient is alert, oriented x 3, equal unlabored respirations, skin warm/dry/pink. 11/30 00:30 Reassessment: Patient appears in no apparent distress at this time. Patient and/or jd3 family updated on plan of care and expected duration. Pain level reassessed. Patient is alert, oriented x 3, equal unlabored respirations, skin warm/dry/pink. 01:21 Reassessment: Patient appears in no apparent distress at this time. Patient and/or jd3 family updated on plan of care and expected duration. Pain level reassessed. Patient is alert, oriented x 3, equal unlabored respirations, skin warm/dry/pink. 02:27 Reassessment: Patient appears in no apparent distress at this time. Patient and/or jd3 family updated on plan of care and expected duration. Pain level reassessed. Patient is alert, oriented x 3, equal unlabored respirations, skin warm/dry/pink. 03:23 Reassessment: Patient appears in no apparent distress at this time. Patient and/or jd3 family updated on plan of care and expected duration. Pain level reassessed. Patient is alert, oriented x 3, equal unlabored respirations, skin warm/dry/pink. Vital Signs: 11/29 20:35 BP 138 / 88; Pulse 76; Resp 17; Temp 98.2; Pulse Ox 97% ; Weight 111.58 kg; Height 6 rr5 ft. 0 in. (182.88 cm); Pain 10/10; 23:43 BP 146 / 89; Pulse 90; Resp 17 S; Pulse Ox 97% on R/A; jd3 11/30 01:22 BP 126 / 90; Pulse 61; Resp 17 S; Pulse Ox 95% on R/A; jd3 02:25 BP 149 / 97; Pulse 60; Resp 18 S; Pulse Ox 99% on R/A; jd3 03:24 BP 150 / 95; Pulse 62; Resp 17 S; Pulse Ox 98% on R/A; jd3 11/29 20:35 Body Mass Index 33.36 (111.58 kg, 182.88 cm) rr5 ED Course: 11/29 20:30 Patient arrived in ED. rr5 20:32 Santana Mo NP is PHCP. pm1 20:32 Robert Lou MD is Attending Physician. pm1 20:34 Triage completed. rr5 20:38 Elliot Fallon RN is Primary Nurse. jd3 20:42 Patient has correct armband on for positive identification. Bed in low position. Call jd3 light in reach. Side rails up X2. 20:42 Arm band placed on. jd3 21:30 Missed attempt(s): 22 gauge in left in right hand. Bleeding controlled, band aid jd3 applied, catheter tip intact. 22:14 CT Stone Protocol In Process Unspecified. EDMS 11/30 01:30 Jerri Guthrie MD is Hospitalizing Provider. pm1 03:24 No provider procedures requiring assistance completed. Patient admitted, IV remains in jd3 place. Administered Medications: 11/29 22:54 Drug: Zofran 4 mg Route: IVP; Site: right antecubital; jd3 23:50 Follow up: Response: No adverse reaction jd3 22:54 Drug: NS 0.9% 500 ml Route: IV; Rate: bolus; Site: right antecubital; jd3 11/30 00:30 Follow up: Response: No adverse reaction; IV Status: Completed infusion; IV Intake: jd3 500ml 11/29 22:54 Drug: morphine 4 mg Route: IVP; Site: right antecubital; jd3 23:50 Follow up: Response: No adverse reaction jd3 11/30 00:34 Drug: morphine 4 mg Route: IVP; Site: right antecubital; jd3 01:30 Follow up: Response: No adverse reaction jd3 00:34 Drug: Kayexalate 30 grams Route: PO; jd3 01:30 Follow up: Response: No adverse reaction jd3 02:15 Drug: NS 0.9% 1000 ml Route: IV; Rate: 125 ml/hr; Site: right antecubital; jd3 03:23 Follow up: Response: No adverse reaction; IV Status: Infusion continued upon admission jd3 03:22 Drug: Zofran 4 mg Route: IVP; Site: right antecubital; jd3 03:43 Follow up: Response: No adverse reaction jd3 Intake: 00:30 IV: 500ml; Total: 500ml. jd3 Output: 01:56 Urine: 480ml (Voided); Total: 480ml. jd3 Outcome: 01:31 Decision to Hospitalize by Provider. pm1 03:24 Admitted to Med/surg accompanied by tech, via wheelchair, room 420, with chart, Report jd3 called to Nirmal HARPER 03:24 Condition: stable 03:24 Instructed on the need for admit, Demonstrated understanding of instructions. 03:43 Patient left the ED. jd3 Signatures: Dispatcher [employer] EDMS Santana Mo, [employer] HELPER pm1 Elliot Fallon, RN RN jd3 Yasmany Saenz RN RN rr5
[2018-11-30] MEDS ORDERED: ACETAMINOPHEN 500 MG TAB PO PRN (01:45)
[2018-11-30] MEDS: NA CHLORIDE 0.9% 1,000 ML IV SCH ×2 (02:00→16:13)
[2018-11-30] MEDS ORDERED: NA CHLORIDE 0.9% 1,000 ML ONE (02:23)
[2018-11-30] MEDS ORDERED: ONDANSETRON 4 MG/2 ML VIAL ONE (03:33)
[2018-11-30 04:30] VITALS: BMI 32.8
[2018-11-30] MEDS ORDERED: CYCLOBENZAPRINE 10 MG TAB PO PRN (08:22)
--- NOTE | 2018-11-30 08:29 | P.HP ---
Certification for Inpatient Patient admitted to: Observation With expected LOS: <2 Midnights Patient will require the following post-hospital care: None Practitioner: I am a practitioner with admitting privileges, knowledge of patient current condition, hospital course, and medical plan of care. Services: Services provided to patient in accordance with Admission requirements found in Title 42 Section 412.3 of the Code of Federal Regulations Patient History Date of Service: 11/30/18 Reason for admission: Left flank pain; intractable nausea and vomiting; diarrhea History of Present Illness: Patient is a 48-year-old gentleman who came into the hospital with left-sided flank pain. He has been in and out of the emergency room over the last week. His admitted about 10 days ago with similar complaints. His kidney function has gradually declined and he is on the schedule for evaluation for possible renal transplant. However,the CT scan revealed that he did have significant atrophy of one of his kidneys. Concern that he has significant renal artery stenosis or renal infarction that is causing this. Will get a renal artery Doppler to evaluate. Will recheck his electrolytes as well need admission to the hospital and if the Doppler reveals any significant stenosis or evidence of infarction or if patient is not able to tolerate his diet and has worsening renal function then patient needs inpatient hospitalization. Otherwise he may be able to go home in the next 48 hr. Allergies No Known Allergies Allergy (Verified 11/21/18 05:48) Home Medications: Amlodipine [Norvasc] 10 mg PO DAILY 11/30/18 Atorvastatin Calcium [Lipitor] 80 mg PO BEDTIME 11/30/18 Cyclobenzaprine [Flexeril*] 10 mg PO TID PRN 11/30/18 Fenofibrate [Tricor] 160 mg PO BREAKFAST 11/30/18 Gabapentin [Neurontin] 100 mg PO TID 11/30/18 Glimepiride [Amaryl] 1 mg PO BID 11/30/18 Losartan Potassium [Cozaar] 25 mg PO DAILY 11/30/18 Metoprolol Tartrate [Lopressor] 25 mg PO BID 11/30/18 Omeprazole 1 cap PO DAILY 11/30/18 Tamsulosin [Flomax*] 1 tab PO BEDTIME 11/30/18 - Past Medical/Surgical History Has patient received pneumonia vaccine in the past: No Diabetic: Yes -: DM II -: CKD stage V on transplant list, no HD yet -: HTN -: neuropathy -: aristeo cataract -: penile implant -: pancreatic tumor -: retinal reattachment - Family History Mother History Unknown: Yes Medical History: Heart disease, Hypertension, Cancer, Seizures, Blood disorders , Liver disease, Kidney disease Father History Unknown: Yes Medical History: Heart disease, Lung disease, Diabetes, Seizures, Blood disorders, Other (see notes) - Social History Smoking Status: Current every day smoker Alcohol use: No CD- Drugs: No Caffeine use: Yes Place of Residence: Home Review of Systems 10-point ROS is otherwise unremarkable Physical Examination - Vital Signs Temperature: 97.3 F Blood Pressure: 159/85 Pulse: 64 Respirations: 17 Pulse Ox (%): 94 - Physical Exam General: Alert, In no apparent distress, Oriented x3 HEENT: Atraumatic, PERRLA, Mucous membr. moist/pink, EOMI, Sclerae nonicteric Neck: Supple, 2+ carotid pulse no bruit, No LAD, Without JVD or thyroid abnormality Respiratory: Clear to auscultation bilaterally, Normal air movement Cardiovascular: Regular rate/rhythm, Normal S1 S2, No murmurs Gastrointestinal: Hypoactive, Non-distended, No rebound, No guarding, Tenderness (Left flank tenderness) Musculoskeletal: No clubbing, No swelling, No tenderness Integumentary: No rashes Neurological: Normal gait, Normal speech, Normal strength at 5/5 x4 extr, Normal tone, Normal affect Lymphatics: No axilla or inguinal lymphadenopathy - Studies Laboratory Data (last 24 hrs) 11/29/18 22:45: Creatinine 4.82 H 11/29/18 22:45: WBC 4.9 D, Hgb 11.7 L, Hct 35.0 L D, Plt Count 146 L D 11/29/18 22:45: Sodium 142, Potassium 5.2 H, BUN 53 H, Creatinine 4.82 H, Glucose 240 H, Total Bilirubin 0.3, AST 16, ALT 24, Alkaline Phosphatase 74, Lipase 340 Assessment & Plan - Problems (Diagnosis) (1) Left flank tenderness Current Visit: Yes Status: Acute (2) Acute gastroenteritis Current Visit: No Status: Acute (3) Acute kidney injury superimposed on CKD Current Visit: No Status: Acute (4) Dehydration Current Visit: No Status: Acute (5) Diabetes mellitus Current Visit: No Status: Acute Qualifiers: (6) HTN (hypertension) Current Visit: No Status: Acute Qualifiers: - Plan Plan: 1. IV hydration 2. Nephrology consultation 3. Renal arterial Doppler 4. Repeat potassium level 5. Strict blood pressure and blood sugar control 6. GI and DVT prophylax Discharge Plan: Home Plan to discharge in: 48 Hours - Advance Directives Does patient have a Living Will: No Does patient have a Durable POA for Healthcare: No - Code Status/Comfort Care Code Status Assessed: Yes Code Status: Full Code Critical Care: No Time Spent Managing PTS Care (In Minutes): 45
[2018-11-30] MEDS: ONDANSETRON 4 MG/2 ML VIAL IV PRN ×2 (08:49→18:12)
[2018-11-30] MEDS: MORPHINE 2 MG/ML SYR IV PRN ×3 (08:49→22:08)
[2018-11-30] MEDS: GABAPENTIN 100 MG CAP PO SCH ×3 (09:00→20:31)
[2018-11-30] MEDS ORDERED: GLIMEPIRIDE 1 MG PO SCH (09:00)
--- NOTE | 2018-11-30 10:32 | RAD REPORT ---
EXAM DESCRIPTION: Stone Protocol CLINICAL HISTORY: 48 years Male Flank pain;Abd pain COMPARISON: November 29, 2018. TECHNIQUE: Images were obtained in axial, sagittal, and coronal planes. No intravenous contrast was administered. This exam was performed according to our departmental dose-optimization program which includes use of Automated Exposure Control, adjustment of the mA and/or kV according to patient size and/or use of i terative reconstruction technique. FINDINGS: Fatty change involving the liver. Spleen is enlarged measuring 15.6 cm in greatest dimensi on. Suspected varices left upper abdomen. Surgical clips in region of body of pancreas. 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 Mildly contracted gallbladder. No obstructing renal calcifications bilaterally. Atrophic change right kidney. Compensatory enlargeme nt left kidney. Punctate nonobstructing calcification and renal parenchymal scarring again noted on r ight. Mild left hydronephrosis. Peripelvic cysts not excluded. Mucosal thickening involving the bladd er with incomplete distention. Penile pump present with pump reservoir right lower pelvis. Appendix not well identified however no secondary signs for appendicitis. No bowel obstruction, perfo ration, or inflammation. Midline ventral hernia again noted which contains nondilated bowel loops. Ad ditional small periumbilical hernia containing only fatty mesentery. No acute osseous abnormality. Atelectatic change lower lungs bilaterally. IMPRESSION: No obstructing renal calcifications bilaterally. Punctate nonobstructing calcifications right kidney again seen with parenchymal scarring and atrophic change right kidney. Compensatory enlargement left kidney with suspected mild left hydronephrosis and perinephric strandin g. Mucosal thickening involving the bladder. Consider inflammatory process or cystitis/pyelonephritis . Superimposed peripelvic cysts not excluded. Fatty change involving the liver. Enlarged spleen. Electronically signed by: Trini Carlson MD 11/29/2018 10:40 PM CDT Due to temporary technical issues with the PACS/Fluency reporting system, reports are being signed by the in house radiologist as a courtesy to ensure prompt reporting. The interpreting radiologist is f melvily responsible for the content of the report.
--- NOTE | 2018-11-30 11:08 | RAD REPORT ---
EXAM DESCRIPTION: US - Abdomen Pelvis Scan US - 11/30/2018 9:25 am CLINICAL HISTORY: Renal artery stenosis, renal atrophy COMPARISON: CT study November 29 TECHNIQUE: Sonographic evaluation of the kidneys was performed with measurements obtained and gross anatomic assessment performed. Doppler evaluation of the renal arteries, interlobar arteries and aort a performed. Waveforms and velocities were recorded. The renal artery ratios in resistive index ana ues were calculated. FINDINGS: Exam has substantial limitation due to patient illness the time of the study. Patient was vomiting and shivering during the examination. No gross urinary bladder abnormality seen. Assessment was limited. Right kidney is approximately 7.6 x 4.7 x 4.3 cm. Left kidney is 12.7 x 6.5 x 4.9 cm. Cortical thickn ess and echogenicity are not outside of normal range. No right-sided hydronephrosis identified. Left pelvic and calyx dilatation is present. This matches the CT study. There is no ureteral dilatation on the CT study. No stone was seen. Resistive index values are normal range measuring 0.7 on the right and 0.4 on the left. Inner lobar resistive index values are 0.66 on the right and 0.77 on the left. No suspicious waveform pattern. Resistive index values in the right-side arterial tree range from 0.7 5-0.84 in value. Left resistive index value in the distal artery was 0.72. Proximal values could not be accurately obtained. Right-side values are somewhat suspect as this was very difficult to evaluate on this patient. IMPRESSION: No renal artery stenosis findings identified. The exam was technically difficult as deta iled above. Renal artery ratios are normal range. Left renal and calyx hydronephrosis matching the CT study. Atrophic right kidney relative to the left. No suspicious mass.
[2018-11-30 11:46] LABS: Magnesium 1.5 mg/dL (1.8-2.4); Phosphorus 3.6 mg/dL (2.5-4.9); Potassium 4.4 mmol/L (3.5-5.1)
[2018-11-30] MEDS: AMLODIPINE 10 MG TAB PO SCH (13:46)
[2018-11-30] MEDS: LOSARTAN POTASSIUM 50 MG TABLET PO SCH (13:46)
[2018-11-30] MEDS: METOPROLOL TAR 25 MG TAB PO SCH ×2 (13:46→22:08)
[2018-11-30] MEDS: GLIMEPIRIDE 2 MG TABLET PO SCH (16:12)
[2018-11-30] MEDS ORDERED: D50W 25 GM/50 ML SYRINGE IV PRN (18:51)
[2018-11-30] MEDS ORDERED: GLUCAGON 1 MG/VIAL IM PRN (18:51)
[2018-11-30] MEDS: INSULIN -REGULAR HUMAN 50 UNIT/0.5 ML ML SQ SCH ×2 (19:34→22:07)
[2018-11-30] MEDS: ATORVASTATIN 80 MG TAB PO SCH (20:31)
--- NOTE | 2018-11-30 20:38 | P.CNS ---
Date of Consult: 11/30/18 Reason for Consult: KAREN/ CKD Requesting Physician: Juan Olivares Chief Complaint: Left flank pain; intractable nausea and vomiting; diarrhea History of Present Illness: 48 yo WM CKD, HTN presented to the ER with N/V and Diarrhea with associated left sided flank pain. Follows with Dr. Lehman as an outpt. Transplant evaluation already in process. Still with persistent nausea. Diarrhea has resolved today. Not sure about eating his lunch today. Patient is a 48-year-old gentleman who came into the hospital with left-sided flank pain. He has been in and out of the emergency room over the last week. His admitted about 10 days ago with similar complaints. His kidney function has gradually declined and he is on the schedule for evaluation for possible renal transplant. However,the CT scan revealed that he did have significant atrophy of one of his kidneys. Concern that he has significant renal artery stenosis or renal infarction that is causing this. Will get a renal artery Doppler to evaluate. Will recheck his electrolytes as well need admission to the hospital and if the Doppler reveals any significant stenosis or evidence of infarction or if patient is not able to tolerate his diet and has worsening renal function then patient needs inpatient hospitalization. Otherwise he may be able to go home in the next 48 hr. 21:36 This 48 yrs old Male presents to ER via EMS with complaints of pm1 Nausea/Vomiting/Diarrhea. 21:36 The patient presents to the emergency department with vomiting, 3 times since the onset pm1 of symptoms, diarrhea, 3 times since the onset of symptoms, abdominal pain , of the left lower quadrant. Onset: The symptoms/episode began/occurred today. Possible causes: unknown. The symptoms are aggravated by nothing. The symptoms are alleviated by nothing. Associated signs and symptoms: Pertinent positives: Right flank pain that is attributed to atrophy of his right kidney, Pertinent negatives: dysuria, fever. Severity of symptoms: in the emergency department the symptoms are worse. Admitted on 11/21 for similar presentation of vomiting, diarrhea, right flank pain and dehydration. Has appointment tomorrow with initial appointment with renal transplant and surgery for dialysis port placement. Allergies No Known Allergies Allergy (Verified 11/21/18 05:48) Home medications list reviewed: Yes Home Medications: Amlodipine [Norvasc] 10 mg PO DAILY 11/30/18 Atorvastatin Calcium [Lipitor] 80 mg PO BEDTIME 11/30/18 Cyclobenzaprine [Flexeril*] 10 mg PO TID PRN 11/30/18 Fenofibrate [Tricor] 160 mg PO BREAKFAST 11/30/18 Gabapentin [Neurontin] 100 mg PO TID 11/30/18 Glimepiride [Amaryl] 1 mg PO BID 11/30/18 Losartan Potassium [Cozaar] 25 mg PO DAILY 11/30/18 Metoprolol Tartrate [Lopressor] 25 mg PO BID 11/30/18 Omeprazole 1 cap PO DAILY 11/30/18 Tamsulosin [Flomax*] 1 tab PO BEDTIME 11/30/18 - Past Medical/Surgical History Diabetic: Yes -: DM II -: CKD stage V on transplant list, no HD yet -: HTN -: neuropathy -: aristeo cataract -: penile implant -: pancreatic tumor -: retinal reattachment - Family History Mother History Unknown: Yes Medical History: Heart disease, Hypertension, Cancer, Seizures, Blood disorders , Liver disease, Kidney disease Father History Unknown: Yes Medical History: Heart disease, Lung disease, Diabetes, Seizures, Blood disorders, Other (see notes) - Social History Alcohol use: No CD- Drugs: No Caffeine use: Yes Place of Residence: Home Review of Systems 10-point ROS is otherwise unremarkable General: Weakness, Malaise Gastrointestinal: Nausea, Diarrhea Physical Examination Temp Pulse Resp BP Pulse Ox 97.3 F 64 18 129/78 97 11/30/18 16:00 11/30/18 16:00 11/30/18 16:00 11/30/18 16:00 11/30/18 16:00 General: Alert, In no apparent distress, Oriented x3, Cooperative HEENT: Atraumatic, Mucous membr. moist/pink Neck: Supple Respiratory: Clear to auscultation bilaterally Cardiovascular: No edema, Regular rate/rhythm, No rubs Gastrointestinal: Soft and benign, Non-distended Musculoskeletal: No clubbing, No contractures Integumentary: No rashes, No cyanosis Neurological: Normal speech Laboratory Data (last 24 hrs) 11/29/18 22:45: Creatinine 4.82 H 11/29/18 22:45: WBC 4.9 D, Hgb 11.7 L, Hct 35.0 L D, Plt Count 146 L D 11/29/18 22:45: Sodium 142, Potassium 5.2 H, BUN 53 H, Creatinine 4.82 H, Glucose 240 H, Total Bilirubin 0.3, AST 16, ALT 24, Alkaline Phosphatase 74, Lipase 340 Imagings Data: EXAM DESCRIPTION: US - Abdomen Pelvis Scan US - 11/30/2018 9:25 am CLINICAL HISTORY: Renal artery stenosis, renal atrophy COMPARISON: CT study November 29 TECHNIQUE: Sonographic evaluation of the kidneys was performed with measurements obtained and gross anatomic assessment performed. Doppler evaluation of the renal arteries, interlobar arteries and aorta performed. Waveforms and velocities were recorded. The renal artery ratios in resistive index values were calculated. FINDINGS: Exam has substantial limitation due to patient illness the time of the study. Patient was vomiting and shivering during the examination. No gross urinary bladder abnormality seen. Assessment was limited. Right kidney is approximately 7.6 x 4.7 x 4.3 cm. Left kidney is 12.7 x 6.5 x 4.9 cm. Cortical thickness and echogenicity are not outside of normal range. No right-sided hydronephrosis identified. Left pelvic and calyx dilatation is present. This matches the CT study. There is no ureteral dilatation on the CT study. No stone was seen. Resistive index values are normal range measuring 0.7 on the right and 0.4 on the left. Inner lobar resistive index values are 0.66 on the right and 0.77 on the left. No suspicious waveform pattern. Resistive index values in the right-side arterial tree range from 0.75-0.84 in value. Left resistive index value in the distal artery was 0.72. Proximal values could not be accurately obtained. Right- side values are somewhat suspect as this was very difficult to evaluate on this patient. IMPRESSION: No renal artery stenosis findings identified. The exam was technically difficult as detailed above. Renal artery ratios are normal range. Left renal and calyx hydronephrosis matching the CT study. Atrophic right kidney relative to the left. No suspicious mass. EXAM DESCRIPTION: Stone Protocol CLINICAL HISTORY: 48 years Male Flank pain;Abd pain COMPARISON: November 29, 2018. TECHNIQUE: Images were obtained in axial, sagittal, and coronal planes. No intravenous contrast was administered. This exam was performed according to our departmental dose-optimization program which includes use of Automated Exposure Control, adjustment of the mA and/or kV according to patient size and/or use of iterative reconstruction technique. FINDINGS: Fatty change involving the liver. Spleen is enlarged measuring 15.6 cm in greatest dimension. Suspected varices left upper abdomen. Surgical clips in region of body of pancreas. 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 Mildly contracted gallbladder. No obstructing renal calcifications bilaterally. Atrophic change right kidney. Compensatory enlargement left kidney. Punctate nonobstructing calcification and renal parenchymal scarring again noted on right. Mild left hydronephrosis. Peripelvic cysts not excluded. Mucosal thickening involving the bladder with incomplete distention. Penile pump present with pump reservoir right lower pelvis. Appendix not well identified however no secondary signs for appendicitis. No bowel obstruction, perforation, or inflammation. Midline ventral hernia again noted which contains nondilated bowel loops. Additional small periumbilical hernia containing only fatty mesentery. No acute osseous abnormality. Atelectatic change lower lungs bilaterally. IMPRESSION: No obstructing renal calcifications bilaterally. Punctate nonobstructing calcifications right kidney again seen with parenchymal scarring and atrophic change right kidney. Compensatory enlargement left kidney with suspected mild left hydronephrosis and perinephric stranding. Mucosal thickening involving the bladder. Consider inflammatory process or cystitis/pyelonephritis. Superimposed peripelvic cysts not excluded. Fatty change involving the liver. Enlarged spleen. Conclusions/Impression: A/ KAREN may be due to hypovolemia in the setting of gastroenteritis. Hyperkalemia. CKD IV/V with proteinuria. DM II with CKD and Polyneuropathy. HTN with CKD. Anemia in CKD/ Chronic illness. BPH with LUTS. Hypocalcemia. Hypomagnesemia. P/ Continue current POC and Medications. Counseled the patient regarding CKD/ ESRD and Dialysis. Change IVF to 1/2NS. Start Vitamin D. Increase Flomax BID. Advance diet as tolerated. No NSAIDs. AM labs. Daily weight. Thank you kindly for the consultation.
[2018-11-30] MEDS ORDERED: TAMSULOSIN 0.4 MG SR CAP PO SCH (21:00)
[2018-11-30] MEDS: TAMSULOSIN 0.4 MG SR CAP PO SCH (21:00)
[2018-11-30] MEDS: NACHLORIDE 0.45% 1,000 ML IV SCH (22:07)
[2018-12-01] MEDS: MORPHINE 2 MG/ML SYR IV PRN ×5 (04:01→20:15)
[2018-12-01 04:55] LABS: Absolute Lymphocytes (CBC) 0.8 K/uL (0.7-4.9); Absolute Monocytes 0.5 K/uL (0.1-1.3); Absolute Neutrophil 2.1 K/uL (1.8-8.0); Basophils % 0.6 % (0-1.3); Hematocrit 28.6 % (39.6-49.0); Lymphocytes % 21.7 % (15.3-44.8); MPV 9.7 fL (7.6-11.3); Monocytes % 14.1 % (3.3-12.3); RBC Red Blood Cell Count 3.37 M/uL (4.33-5.43)
[2018-12-01 04:57] LABS: Urine Appearance CLEAR; Urine Bilirubin NEGATIVE (NEG); Urine Blood TRACE (NEG); Urine Color YELLOW; Urine Glucose 2+ (NEG); Urine Protein 3+ (NEG); Urine Specific Gravity 1.015 (1.005-1.030); Urine pH 5.5 (5.0-7.0)
[2018-12-01 05:08] LABS: Albumin 2.6 g/dL (3.4-5.0); Bilirubin Total 0.4 mg/dL (0.2-1.0); Magnesium 1.7 mg/dL (1.8-2.4); Potassium 4.2 mmol/L (3.5-5.1); Protein, Total 5.4 g/dL (6.4-8.2); Uric Acid 7.3 mg/dL (3.5-7.2)
[2018-12-01 05:09] LABS: Urine Bacteria <20 /HPF (NONE SEEN); Urine Culture Reflex Order NOT NEEDED; Urine RBC <5 /HPF (NONE SEEN)
[2018-12-01 05:10] LABS: Urine Amorphous Sediment TRACE /HPF (NONE SEEN); Urine Sperm PRESENT (NONE SEEN)
[2018-12-01 05:14] LABS: Blood Morphology Comment NOT SEEN (NOT SEEN); Platelet Estimate DECR; Urine White Blood Cell Casts OK
[2018-12-01] MEDS: PANTOPRAZOLE 40MG TABLET PO SCH (05:45)
[2018-12-01] MEDS: AMLODIPINE 10 MG TAB PO SCH (08:09)
[2018-12-01] MEDS: INSULIN -REGULAR HUMAN 50 UNIT/0.5 ML ML SQ SCH ×4 (08:09→21:52)
[2018-12-01] MEDS: FENOFIBRATE 160 MG TAB PO SCH (08:10)
[2018-12-01] MEDS: LOSARTAN POTASSIUM 50 MG TABLET PO SCH (08:10)
[2018-12-01] MEDS: CALCITROL 0.25 MCG CAP PO SCH (08:10)
[2018-12-01] MEDS: VITAMIN D 5,000 UNIT CAP PO SCH (08:11)
[2018-12-01] MEDS: METOPROLOL TAR 25 MG TAB PO SCH ×2 (08:11→21:51)
[2018-12-01] MEDS: GABAPENTIN 100 MG CAP PO SCH ×3 (08:11→21:52)
[2018-12-01] MEDS: GLIMEPIRIDE 2 MG TABLET PO SCH ×2 (08:11→16:21)
[2018-12-01] MEDS: TAMSULOSIN 0.4 MG SR CAP PO SCH ×2 (08:12→21:51)
[2018-12-01] MEDS: NACHLORIDE 0.45% 1,000 ML IV SCH ×2 (10:29→21:50)
[2018-12-01] MEDS: ONDANSETRON 4 MG/2 ML VIAL IV PRN ×2 (10:37→18:44)
--- NOTE | 2018-12-01 13:15 | P.PN ---
Date of Service: 12/01/18 Vital Signs Temp Pulse Resp BP Pulse Ox 97.3 F 57 18 138/83 93 12/01/18 11:14 12/01/18 11:14 12/01/18 11:14 12/01/18 11:14 12/01/18 11:14 Medications Acetaminophen (Tylenol -Extra Strength) 500 mg PO Q6H PRN PRN Reason: pain/fever Stop: 12/30/18 01:46 Amlodipine Besylate (Norvasc) 10 mg PO DAILY [facility] Stop: 12/30/18 09:01 Last Admin: 12/01/18 08:09 Dose: 10 mg Atorvastatin Calcium (Lipitor) 80 mg PO BEDTIME [facility] Stop: 12/30/18 21:01 Last Admin: 11/30/18 20:31 Dose: 80 mg Calcitriol (Rocaltrol) 0.5 mcg PO DAILY [facility] Stop: 12/31/18 09:01 Last Admin: 12/01/18 08:10 Dose: 0.5 mcg Cholecalciferol (Vitamin D 5,000 Iu Cap) 5,000 unit PO DAILY [facility] Stop: 12/31/18 09:01 Last Admin: 12/01/18 08:11 Dose: 5,000 unit Cyclobenzaprine HCl (Flexeril) 10 mg PO TID PRN PRN Reason: Pain scale 2-4 (Mild) Stop: 12/30/18 08:23 Dextrose (Dextrose 50% Syringe) 12.5 gm IV PRN PRN; Protocol PRN Reason: HYPOGLYCEMIA Stop: 12/30/18 18:52 Fenofibrate (Tricor) 160 mg PO BREAKFAST [facility] Stop: 12/31/18 08:01 Last Admin: 12/01/18 08:10 Dose: 160 mg Gabapentin (Neurontin) 100 mg PO TID [facility] Stop: 12/30/18 09:01 Last Admin: 12/01/18 08:11 Dose: 100 mg Glimepiride (Amaryl) 1 mg PO BIDWM [facility] Stop: 12/30/18 17:01 Last Admin: 12/01/18 08:11 Dose: 1 mg Glucagon (Glucagen) 1 mg IM 1X PRN; Protocol PRN Reason: HYPOGLYCEMIA Stop: 12/30/18 18:52 Sodium Chloride (Sodium Chloride 0.45%) 1,000 mls @ 85 mls/hr IV .[id number] [facility] Stop: 12/30/18 21:01 Last Admin: 12/01/18 10:29 Dose: 1,000 mls Insulin Human Regular (Novolin -R) 0 unit SQ ACHS [facility]; Protocol Stop: 12/30/18 21:01 Last Admin: 12/01/18 11:34 Dose: 2 unit Losartan Potassium (Cozaar) 25 mg PO DAILY [facility] Stop: 12/30/18 09:11 Last Admin: 12/01/18 08:10 Dose: 25 mg Metoprolol Tartrate (Lopressor) 25 mg PO BID [facility] Stop: 12/30/18 09:01 Last Admin: 12/01/18 08:11 Dose: 25 mg Morphine Sulfate (Morphine Sulfate) 2 mg IV Q4H PRN PRN Reason: Pain scale 5-7 (Moderate) Stop: 12/30/18 01:46 Last Admin: 12/01/18 12:18 Dose: 2 mg Ondansetron HCl (Zofran) 4 mg IV Q8H PRN PRN Reason: NAUSEA / VOMITING Stop: 12/30/18 01:46 Last Admin: 12/01/18 10:37 Dose: 4 mg [facility]oprazole S[facility] ([facility]ix [facility]) [facility] Stop: 12/31/18 06:31 Last Admin: 12/01/18 05:45 Dose: 40 mg Sodium Chloride (Normal Saline Flush) 10 ml IV BID [facility] Stop: 12/30/18 09:01 Last Admin: 12/01/18 08:12 Dose: 10 ml Tamsulosin HCl (Flomax) 0.4 mg PO BID [facility] Stop: 12/30/18 21:01 Last Admin: 12/01/18 08:12 Dose: 0.4 mg Assessment/ Plan: Nephrology. CPS stable without CP or SOB. No acute events overnight. Tolerating his diet but reports another episode diarrhea. Persistent, uncontrolled low back pain. Vitals, medications, blood work and imaging reviewed in the chart. General: Alert, In no apparent distress, Oriented x3, Cooperative HEENT: Atraumatic, Mucous membr. moist/pink Neck: Supple Respiratory: Clear to auscultation bilaterally Cardiovascular: No edema, Regular rate/rhythm, No rubs Gastrointestinal: Soft and benign, Non-distended Musculoskeletal: No clubbing, No contractures Integumentary: No rashes, No cyanosis Neurological: Normal speech Laboratory Data (last 24 hrs) 11/29/18 22:45: Creatinine 4.82 H 11/29/18 22:45: WBC 4.9 D, Hgb 11.7 L, Hct 35.0 L D, Plt Count 146 L D 11/29/18 22:45: Sodium 142, Potassium 5.2 H, BUN 53 H, Creatinine 4.82 H, Glucose 240 H, Total Bilirubin 0.3, AST 16, ALT 24, Alkaline Phosphatase 74, Lipase 340 Imagings Data: EXAM DESCRIPTION: US - Abdomen Pelvis Scan US - 11/30/2018 9:25 am CLINICAL HISTORY: Renal artery stenosis, renal atrophy COMPARISON: CT study November 29 TECHNIQUE: Sonographic evaluation of the kidneys was performed with measurements obtained and gross anatomic assessment performed. Doppler evaluation of the renal arteries, interlobar arteries and aorta performed. Waveforms and velocities were recorded. The renal artery ratios in resistive index values were calculated. FINDINGS: Exam has substantial limitation due to patient illness the time of the study. Patient was vomiting and shivering during the examination. No gross urinary bladder abnormality seen. Assessment was limited. Right kidney is approximately 7.6 x 4.7 x 4.3 cm. Left kidney is 12.7 x 6.5 x 4.9 cm. Cortical thickness and echogenicity are not outside of normal range. No right-sided hydronephrosis identified. Left pelvic and calyx dilatation is present. This matches the CT study. There is no ureteral dilatation on the CT study. No stone was seen. Resistive index values are normal range measuring 0.7 on the right and 0.4 on the left. Inner lobar resistive index values are 0.66 on the right and 0.77 on the left. No suspicious waveform pattern. Resistive index values in the right-side arterial tree range from 0.75-0.84 in value. Left resistive index value in the distal artery was 0.72. Proximal values could not be accurately obtained. Right- side values are somewhat suspect as this was very difficult to evaluate on this patient. IMPRESSION: No renal artery stenosis findings identified. The exam was technically difficult as detailed above. Renal artery ratios are normal range. Left renal and calyx hydronephrosis matching the CT study. Atrophic right kidney relative to the left. No suspicious mass. EXAM DESCRIPTION: Stone Protocol CLINICAL HISTORY: 48 years Male Flank pain;Abd pain COMPARISON: November 29, 2018. TECHNIQUE: Images were obtained in axial, sagittal, and coronal planes. No intravenous contrast was administered. This exam was performed according to our departmental dose-optimization program which includes use of Automated Exposure Control, adjustment of the mA and/or kV according to patient size and/or use of iterative reconstruction technique. FINDINGS: Fatty change involving the liver. Spleen is enlarged measuring 15.6 cm in greatest dimension. Suspected varices left upper abdomen. Surgical clips in region of body of pancreas. 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 Mildly contracted gallbladder. No obstructing renal calcifications bilaterally. Atrophic change right kidney. Compensatory enlargement left kidney. Punctate nonobstructing calcification and renal parenchymal scarring again noted on right. Mild left hydronephrosis. Peripelvic cysts not excluded. Mucosal thickening involving the bladder with incomplete distention. Penile pump present with pump reservoir right lower pelvis. Appendix not well identified however no secondary signs for appendicitis. No bowel obstruction, perforation, or inflammation. Midline ventral hernia again noted which contains nondilated bowel loops. Additional small periumbilical hernia containing only fatty mesentery. No acute osseous abnormality. Atelectatic change lower lungs bilaterally. IMPRESSION: No obstructing renal calcifications bilaterally. Punctate nonobstructing calcifications right kidney again seen with parenchymal scarring and atrophic change right kidney. Compensatory enlargement left kidney with suspected mild left hydronephrosis and perinephric stranding. Mucosal thickening involving the bladder. Consider inflammatory process or cystitis/pyelonephritis. Superimposed peripelvic cysts not excluded. Fatty change involving the liver. Enlarged spleen. Conclusions/Impression: A/ KAREN may be due to hypovolemia in the setting of gastroenteritis vs progressive CKD. Hyperkalemia. CKD IV/V with proteinuria. Right renal atrophy. NICK? Nephrolithiasis without any obstructive stones at this time. DM II with CKD and Polyneuropathy. HTN with CKD. Anemia in CKD/ Chronic illness. Pancytopenia. BPH with LUTS. Hypocalcemia. Hypomagnesemia. P/ Continue current POC and Medications. Counseled the patient regarding CKD/ ESRD and Dialysis. Continue gentle IVF. Consider a urology evaluation for right renal atrophy and possible left hydronephrosis. Unclear if the back pain and kidney issues are related. Advance diet as tolerated. No NSAIDs. AM labs. Daily weight. Plan to have an AVF placed with Dr. Triana in December. Follows with Dr. Lehman for CKD. Case discussed with Dr. Walton.
--- NOTE | 2018-12-01 18:22 | CON ---
History Of Present Illness: A 48-year-old white male with chronic kidney disease, hypertension, presents to the ER with nausea, vomiting, diarrhea, and left-sided pain. This was new. This patient had a transplant evaluation for renal transplantation. He has a history of diabetes. He had a CT scan showing atrophic right kidney and slightly minimal hydronephrosis and the left kidney with some perinephric stranding and 5 a possible UPJ obstruction. We will obtain a renal scan in the morning to evaluate this. If it does, I will recommend a stent that may improve his renal function. His renal function is 54 right now. He has no urinary problems. He makes 2-3 L of urine a day. Drinks lots of water, he says. He is currently disabled due to his renal failure and diabetes and he recently moved from [place] to this area. He has seen Dr. Lehman for Nephrology and it is his first scan that he has done here in this state. I do not have access to any others, so we will need to work up to make sure rule out an obstruction. Home Medications: Norvasc, Lipitor, Flexeril, Tricor, Neurontin, Amaryl, Cozaar , Lopressor, omeprazole, Flomax. Past Medical History: Surgery is penile prosthesis three-piece, diabetic type 2 , chronic kidney disease stage 5, on transplant list, hemodialysis, hypertension , neuropathy, bilateral cataract, penile implant, ____. Family History: No history of heart disease, hypertension, cancers, seizure, blood disorder, liver and kidney disease. Family History: On his father's side of heart disease, lung disease, diabetes, seizure, and blood disorder. Social History: Current everyday smoker. Alcohol use none. Drugs none. Caffeine use yes. Resides at home. Review of Systems: Ten point system otherwise unremarkable. Physical Examination: Vital Signs: The patient is afebrile, stable. HEENT: His face seems somewhat swollen but benign. General: He is alert and oriented x3. NECK: Supple. 2+ carotid pulses. Respiratory: Clear bilaterally. Heart: S1-S2. Gastrointestinal: Benign. No rebound. No tenderness. Musculoskeletal: No clubbing. No spinal tenderness. Skin: No rashes. Neurologic: Normal gait. Normal speech. Sensory and motor function intact. exam: Both testicles descended. There is a penile prosthesis in the penis, little bit short. He has a pump in the scrotum. Testicles were benign. DIANA: Deferred. Laboratory Studies: Chem-7; sodium 133, potassium 4.2, chloride 109, carbon dioxide 25, BUN 52, creatinine 4.75, GFR 13%, glucose 183, calcium 7.3. Urine shows yellow clear, pH 5.5, ketone negative, blood trace, nitrite negative, esterase negative, __. Serology; hepatitis B serologies pending. Assessment: Atrophic right kidney home, hydronephrosis on the left kidney, need to rule out ureteropelvic junction obstruction. There are no signs of any stones causing the obstruction. Recommendation: A nuclear renal scan with Lasix in a.m. Keep the patient n.p.o. after midnight for possible cysto stent placement next day if indicated. Discussed this with the patient and wishes to proceed. MY Voice ID: [id number] Report ID: [id number] NELLY
[2018-12-01] MEDS: ATORVASTATIN 80 MG TAB PO SCH (21:51)
--- NOTE | 2018-12-01 22:11 | PN ---
Date of Progress Note: 12/01/2018 Subjective: The patient is seen and examined, chart reviewed, and case discussed with RN and Dr. Yanci ahuja as well as Dr. Wallace. The patient still complaining of some flank pain on both sides, still hav ing some nausea, not much of an appetite, no vomiting, no fevers. Medications: List reviewed. Physical Examination: Vital Signs: Temperature 97.7, heart rate 59, blood pressure 116/65, respirations 17, and O2 of 97% on room air. General: Awake, alert, oriented x3, in some mild distress. Ill-appearing obese male. CV: S1, S2. Regular rate and rhythm. Peripheral pulses present. Respiratory: Moving air well bilaterally. No wheezing or stridor. Gastrointestinal: Abdomen is soft, nontender, nondistended. Positive bowel sounds. The patient matos s have bilateral flank tenderness. Extremities: No clubbing, cyanosis, or edema. Neuro: Cranial nerves 2 through 12 intact grossly. No focal neurological deficits. Speech is wilbert l. Laboratory Data: Sodium 143, potassium 4.2, chloride 109, CO2 25, BUN 52, creatinine 4.75, glucose 1 83, uric acid 7.3, calcium 7.3, magnesium 1.7, albumin 2.6. WBC 3.5, H and H 9.6 and 28.6, platelets 72. Hepatitis panel is pending. Abdominal ultrasound shows no renal artery stenosis. Left renal a nd calyx hydronephrosis matching the CT study. Atrophic right kidney relative to the left. No suspi cious mass. Assessment And Plan: 1.Left flank tenderness. CT scan had shown some renal pelvis cysts. May have some stricture. This is the patient's second admission and concern for hydronephrosis and worsening kidney function. Lef t kidney is the patient's good kidney. The right kidney is already atrophic. Ultrasound ruled out r enal artery stenosis. 2.Acute gastroenteritis, improving. The patient is still having some nausea, no vomiting episodes, decreased appetite. We will keep n.p.o. after midnight for stent placement for his flank tenderness. 3.[id number] kidney injury, stage 5. We will continue to monitor creatinine level. Monitor e lectrolytes. The patient will need to be started on dialysis soon. The patient will be seeing Dr. Arabella lagunas in the next week at [facility] for his arteriovenous graft. 4.Acute dehydration. Continue with IV fluids. 5.Diabetes mellitus type 2, noninsulin requiring with hyperglycemia. 6.Diabetic neuropathy. 7.Essential hypertension. 8.Obesity, BMI of 33. 9.Thrombocytopenia. We will hold off any chemical anticoagulation, unclear etiology. Hepatitis olvera el is being obtained. Plan: Rule out stricture and the patient will likely go for renogram and possible stent placement in a.m. /USHA Voice ID: [id number] Report ID: [id number]
[2018-12-01 23:50] VITALS: O2SAT 95
[2018-12-02] MEDS: MORPHINE 2 MG/ML SYR IV PRN ×2 (02:20→07:31)
[2018-12-02] MEDS: ONDANSETRON 4 MG/2 ML VIAL IV PRN ×2 (02:20→09:24)
[2018-12-02 05:05] LABS: Absolute Lymphocytes (CBC) 0.6 K/uL (0.7-4.9); Absolute Monocytes 0.3 K/uL (0.1-1.3); Absolute Neutrophil 1.7 K/uL (1.8-8.0); Basophils % 0.7 % (0-1.3); Eosinophils % 3.2 % (0-4.4); Lymphocytes % 22.8 % (15.3-44.8); MPV 9.4 fL (7.6-11.3); Monocytes % 12.1 % (3.3-12.3); RBC Red Blood Cell Count 3.26 M/uL (4.33-5.43)
[2018-12-02 05:30] VITALS: TEMP 97.3
[2018-12-02 05:34] LABS: Potassium 4.5 mmol/L (3.5-5.1)
[2018-12-02] MEDS: PANTOPRAZOLE 40MG TABLET PO SCH (06:10)
[2018-12-02] MEDS ORDERED: FUROSEMIDE 20 MG/ 2ML VIAL ONE (06:11)
--- NOTE | 2018-12-02 08:14 | RAD REPORT ---
EXAM DESCRIPTION: NM - Kidney Imag W/Flow Func Wop - 12/02/2018 7:22 am CLINICAL HISTORY: Abnormal renal function, hydronephrosis, obstruction COMPARISON: CT study November 29, ultrasound study November 30 TECHNIQUE: Patient was administered 10.4 millicuries technetium 99 M Mag 3. Dynamic flow imaging of both kidneys was performed. Time activity curves were generated and reviewed. A 20 milligram Lasix do se was given 10 minutes after initial radiopharmaceutical administration. FINDINGS: Both kidneys demonstrate a steep upward curvature of the time activity curves. Time to pea k activity was 2 point 7 7 minutes on the left and 2.45 minutes on the right. Both kidneys show downw any curvature of the time activity curves several minutes prior to Lasix administration. There was fu rther diminishment in activity after the Lasix administration. The hydronephrosis findings of the left kidney are not associated with an obstructive time activity c urve pattern. Split function is 50% left and 42% right, not unexpected given the atrophy of the right kidney relati ve to the left. IMPRESSION: Left renal hydronephrosis is not associated with obstruction. Left renal time activity c urve does not indicate obstructive pattern. Both kidneys show very short time to peak activity with progressive clearing of the radiopharmaceutic al from the kidneys prior to Lasix administration. Split function is 58% left and 42% right, not unexpected or unusual given the right renal atrophy com pared to the left.
[2018-12-02] MEDS: GLIMEPIRIDE 2 MG TABLET PO SCH (08:38)
[2018-12-02 08:39] VITALS: BP 156/82
[2018-12-02] MEDS: GABAPENTIN 100 MG CAP PO SCH (08:39)
[2018-12-02] MEDS: CALCITROL 0.25 MCG CAP PO SCH (08:39)
[2018-12-02] MEDS: METOPROLOL TAR 25 MG TAB PO SCH (08:39)
[2018-12-02] MEDS: VITAMIN D 5,000 UNIT CAP PO SCH (08:39)
[2018-12-02] MEDS: LOSARTAN POTASSIUM 50 MG TABLET PO SCH (08:40)
[2018-12-02] MEDS: FENOFIBRATE 160 MG TAB PO SCH (08:40)
[2018-12-02] MEDS: TAMSULOSIN 0.4 MG SR CAP PO SCH (08:40)
[2018-12-02] MEDS: AMLODIPINE 10 MG TAB PO SCH (08:41)
[2018-12-02] MEDS: INSULIN -REGULAR HUMAN 50 UNIT/0.5 ML ML SQ SCH (08:42)
[2018-12-02] MEDS: NACHLORIDE 0.45% 1,000 ML IV SCH ×3 (08:45→08:46)
--- NOTE | 2018-12-02 20:45 | P.PN ---
Date of Service: 12/02/18 Vital Signs Temp Pulse Resp BP Pulse Ox 97.3 F 59 18 156/82 H 94 12/02/18 08:00 12/02/18 08:41 12/02/18 08:00 12/02/18 08:41 12/02/18 08:00 Assessment/ Plan: Nephrology. CPS stable without CP or SOB. No acute events overnight. Persistent, moderate low back pain. Vitals, medications, blood work and imaging reviewed in the chart. General: Alert, In no apparent distress, Oriented x3, Cooperative HEENT: Atraumatic, Mucous membr. moist/pink Neck: Supple Respiratory: Clear to auscultation bilaterally Cardiovascular: No edema, Regular rate/rhythm, No rubs Gastrointestinal: Soft and benign, Non-distended Musculoskeletal: No clubbing, No contractures Integumentary: No rashes, No cyanosis Neurological: Normal speech Laboratory Data (last 24 hrs) 11/29/18 22:45: Creatinine 4.82 H 11/29/18 22:45: WBC 4.9 D, Hgb 11.7 L, Hct 35.0 L D, Plt Count 146 L D 11/29/18 22:45: Sodium 142, Potassium 5.2 H, BUN 53 H, Creatinine 4.82 H, Glucose 240 H, Total Bilirubin 0.3, AST 16, ALT 24, Alkaline Phosphatase 74, Lipase 340 Imagings Data: EXAM DESCRIPTION: US - Abdomen Pelvis Scan US - 11/30/2018 9:25 am CLINICAL HISTORY: Renal artery stenosis, renal atrophy COMPARISON: CT study November 29 TECHNIQUE: Sonographic evaluation of the kidneys was performed with measurements obtained and gross anatomic assessment performed. Doppler evaluation of the renal arteries, interlobar arteries and aorta performed. Waveforms and velocities were recorded. The renal artery ratios in resistive index values were calculated. FINDINGS: Exam has substantial limitation due to patient illness the time of the study. Patient was vomiting and shivering during the examination. No gross urinary bladder abnormality seen. Assessment was limited. Right kidney is approximately 7.6 x 4.7 x 4.3 cm. Left kidney is 12.7 x 6.5 x 4.9 cm. Cortical thickness and echogenicity are not outside of normal range. No right-sided hydronephrosis identified. Left pelvic and calyx dilatation is present. This matches the CT study. There is no ureteral dilatation on the CT study. No stone was seen. Resistive index values are normal range measuring 0.7 on the right and 0.4 on the left. Inner lobar resistive index values are 0.66 on the right and 0.77 on the left. No suspicious waveform pattern. Resistive index values in the right-side arterial tree range from 0.75-0.84 in value. Left resistive index value in the distal artery was 0.72. Proximal values could not be accurately obtained. Right- side values are somewhat suspect as this was very difficult to evaluate on this patient. IMPRESSION: No renal artery stenosis findings identified. The exam was technically difficult as detailed above. Renal artery ratios are normal range. Left renal and calyx hydronephrosis matching the CT study. Atrophic right kidney relative to the left. No suspicious mass. EXAM DESCRIPTION: Stone Protocol CLINICAL HISTORY: 48 years Male Flank pain;Abd pain COMPARISON: November 29, 2018. TECHNIQUE: Images were obtained in axial, sagittal, and coronal planes. No intravenous contrast was administered. This exam was performed according to our departmental dose-optimization program which includes use of Automated Exposure Control, adjustment of the mA and/or kV according to patient size and/or use of iterative reconstruction technique. FINDINGS: Fatty change involving the liver. Spleen is enlarged measuring 15.6 cm in greatest dimension. Suspected varices left upper abdomen. Surgical clips in region of body of pancreas. 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 Mildly contracted gallbladder. No obstructing renal calcifications bilaterally. Atrophic change right kidney. Compensatory enlargement left kidney. Punctate nonobstructing calcification and renal parenchymal scarring again noted on right. Mild left hydronephrosis. Peripelvic cysts not excluded. Mucosal thickening involving the bladder with incomplete distention. Penile pump present with pump reservoir right lower pelvis. Appendix not well identified however no secondary signs for appendicitis. No bowel obstruction, perforation, or inflammation. Midline ventral hernia again noted which contains nondilated bowel loops. Additional small periumbilical hernia containing only fatty mesentery. No acute osseous abnormality. Atelectatic change lower lungs bilaterally. IMPRESSION: No obstructing renal calcifications bilaterally. Punctate nonobstructing calcifications right kidney again seen with parenchymal scarring and atrophic change right kidney. Compensatory enlargement left kidney with suspected mild left hydronephrosis and perinephric stranding. Mucosal thickening involving the bladder. Consider inflammatory process or cystitis/pyelonephritis. Superimposed peripelvic cysts not excluded. Fatty change involving the liver. Enlarged spleen. Conclusions/Impression: A/ KAREN may be due to hypovolemia in the setting of gastroenteritis vs progressive CKD. Hyperkalemia. CKD IV/V with proteinuria. Right renal atrophy. NICK? Nephrolithiasis without any obstructive stones at this time. DM II with CKD and Polyneuropathy. HTN with CKD. Anemia in CKD/ Chronic illness. Pancytopenia. BPH with LUTS. Hypocalcemia. Hypomagnesemia. P/ Continue current POC and Medications. Plan for possible urinary stent placement today. Follow up with Dr. Wallace. Unclear if the back pain and kidney issues are related. Advance diet as tolerated. No NSAIDs. AM labs. Daily weight. Plan to have an AVF placed with Dr. Triana in December. Follows with Dr. Lehman for CKD.
--- NOTE | 2018-12-03 12:04 | DS ---
Date of Discharge: 12/02/2018 Consultants: Dr. Wallace with Urology and Dr. Wise with Nephrology. Admitting Diagnoses: 1.Left flank tenderness. 2.Acute gastroenteritis. 3.Iegmc-ti-ytysmwe kidney disease, stage 5. 4.Acute dehydration. 5.Diabetes mellitus type 2. 6.Essential hypertension. Discharge Diagnoses: 1.Left flank tenderness, obstruction ruled out. 2.Acute gastroenteritis, resolved. 3.Gkkex-bj-fjnkrfj kidney injury, stage 5. 4.Acute dehydration, resolved. 5.Diabetes mellitus type 2, noninsulin requiring with hyperglycemia. 6.Diabetic neuropathy. 7.Vision problems. 8.Essential hypertension. 9.Obesity, BMI of 33. 10.Thrombocytopenia. 11.Noncompliance with diet. Hospital Course: The patient is a 48-year-old male with multiple admissions for similar issues, come s in again with left-sided flank pain. The patient's CT scan previously showed atrophy of the right kidney, which is likely chronic, renal artery stenosis was ruled out by renal artery Doppler. The yoko noguera's braze operator, Dr. Wise was consulted. The patient was continued on IV fluids. His kidney function remained stable. CT scan was repeated, which did not show any stones. There was a possibi lity of stricture, which may be causing the hydronephrosis on the left. Therefore, renal renogram wa s done and Dr. Wallace was consulted. Renogram did not show any obstruction or strictures. This is im portant to rule out as the patient has had multiple admissions and had been having continuous symptom s and tenderness. The patient already has 1 atrophic kidney and the left kidney is the better one. As I was ruled out, the patient was then cleared for discharge from documentum consultant's standpoint. The pat ient was found to have some cyst on the left kidney. The renal nuclear medicine scan again did not s how any obstruction, no hydronephrosis. The patient was then cleared for discharge. He did not requ silvia any stent placement. The patient's hepatitis panel still pending. Followup: The patient is to follow up with his primary care physician and braze operator, Dr. Lehman in 1 week. Follow up with Vascular Surgery, Dr. Blevins on 12/10/2018 for AV graft placement. Return to ER for worsening condition. Follow up with Dr. Wallace, in 2 weeks. Diet: Renal. Activity: As tolerated. Medications: As per medication reconciliation list. Physical Examination: General: Awake, alert, and oriented x3. CV: S1 and S2. No murmurs. Respiratory: Moving air well. Gastrointestinal: Abdomen is soft, nontender, nondistended. Positive bowel sounds. Extremities: No clubbing, cyanosis, or edema. Neurologic: Nonfocal. Total time spent discharging the patient was 33 minutes. /USHA Voice ID: [id number] Report ID: [id number]
[2018-12-04 03:55] LABS: HBsAG Nonreactive (Nonreactive)
== END 2018-12-02 11:20 | disposition home or self-care (01) | DRG 392 ==
LOC: ER 20:29 → ERHOLD 11-30 01:45 → 4TH 11-30 03:20 → OBSVTOIN 12-01 13:51
PROVIDERS: ADMIT Hospitalist; ATTEND Family Medicine
DX: R10.819 Abdominal tenderness, unspecified site (principal); N17.9 Acute kidney failure, unspecified; I12.0 Hypertensive chronic kidney disease with stage 5 chronic kidney disease or end stage renal disease; D61.818 Other pancytopenia; N18.5 Chronic kidney disease, stage 5; K52.9 Noninfective gastroenteritis and colitis, unspecified; E11.22 Type 2 diabetes mellitus with diabetic chronic kidney disease; E86.0 Dehydration; F17.210 Nicotine dependence, cigarettes, uncomplicated; E11.42 Type 2 diabetes mellitus with diabetic polyneuropathy; D63.1 Anemia in chronic kidney disease; D63.8 Anemia in other chronic diseases classified elsewhere; N40.1 Benign prostatic hyperplasia with lower urinary tract symptoms; E83.51 Hypocalcemia; E83.42 Hypomagnesemia; Z91.11 Patient's noncompliance with dietary regimen; Z76.82 Awaiting organ transplant status; E11.65 Type 2 diabetes mellitus with hyperglycemia; E66.9 Obesity, unspecified; Z68.33 Body mass index [BMI] 33.0-33.9, adult; Z96.89 Presence of other specified functional implants
CPT/HCPCS: 36415; 74176; 76377; 78707; 80048; 80053; 80076; 81001; 81003; 82043; 82570; 82962; 83690; 83735; 84100; 84550; 85025; 86317; 86704; 87340; 93975; 96361; 96374; 96375; 99285; A9562; G0378; J1940; J2270; J2405; J7030

== ENCOUNTER 2018-12-10 20:37 | Emergency (ER) | payer OTHER ==
--- OUTSIDE RECORDS SUMMARY | 2018-12-10 20:40 | XMS REPORT | Clinical Summary ---
:1970 Author Organization [facility] Address [address] [place] [address] Care Team Providers Name Role Phone [place] Primary Care Provider Unavailable Allergies No Known Allergies Medications Medication Sig Dispensed Refills Start Date End Date Status amLODIPine (NORVASC) 10 Take 10 mg by 0 Active mg tablet mouth daily. atorvastatin (LIPITOR) Take 80 mg by 0 Active 80 MG tablet mouth daily. ergocalciferol (VITAMIN Take 50,000 0 Active D2) 50,000 unit capsule Units by mouth once a week. fenofibrate (LOFIBRA) Take 160 mg by 0 Active 160 MG tablet mouth daily. gabapentin (NEURONTIN) Take 100 mg by 0 Active 100 mg capsule mouth 3 (three) times a day. losartan (COZAAR) 25 MG Take 25 mg by 0 Active tablet mouth daily. metoprolol succinate XL Take 25 mg by 0 Active (TOPROL-XL) 25 mg 24 hr mouth daily. tablet insulin ASPART (NovoLOG) Inject under the 0 Active 100 unit/mL (3 mL) skin. insulin pen omeprazole (PriLOSEC) 20 0 09/24/2018 Active MG capsule Active Problems Not on file Encounters Date Type Specialty Care Team Description 12/10/2018 Office Visit Cardiovascular Ward Triana Encounter regarding MD Yanira vascular access for dialysis for end-stage renal disease (HCC) (Primary Dx) 12/10/2018 Telephone Cardiovascular Iwona Jiménez 11/27/2018 Telephone Cardiovascular Iwona Jiménez End stage renal disease (HCC) (Primary Dx); Pre-op exam after 12/09/2017 Social History Tobacco Use Types Packs/Day Years Used Date Never Assessed Sex Assigned at Date Recorded Not on file Job Start Date Occupation Industry Not on file Not on file Not on file Travel History Travel Start Travel End No recent travel history available. Last Filed Vital Signs Vital Sign Reading Time Taken Blood Pressure 172/97 12/10/2018 9:20 AM CDT Pulse 59 12/10/2018 9:20 AM CDT Temperature - - Respiratory Rate - - Oxygen Saturation 96% 12/10/2018 9:20 AM CDT Inhaled Oxygen Concentration - - Weight 111 kg (245 lb) 12/10/2018 9:20 AM CDT Height 182.9 cm (6') 12/10/2018 9:20 AM CDT Body Mass Index 33.23 12/10/2018 9:20 AM CDT Plan of Treatment Health Maintenance Due Date Last Done Comments INFLUENZA VACCINE 03/04/2019 Procedures Procedure Name Priority Date/Time Associated Diagnosis Comments US VEIN MAPPING Routine 12/10/2018 9:10 AM End stage renal Results for this UPPER EXTREMITY CDT disease (HCC) procedure are in BILATERAL Pre-op exam the results section. after 12/09/2017 Results Us vein mapping upper extremity (12/10/2018 9:10 AM CDT) Narrative Performed At [facility] Upper Extremity Vein Mapping Report [id number] [facility] [address], [place] [address] Pat.Name:Flavia HARDEN.ID:[id number] .Date: 12/10/2018Refer.MD:Ward Triana MD Exam Time: 8:14:00 AMStudy Type:UE Vein Mapping DOBAge:1970,48YSex: MALE Sonogrphr: Laura Valenzuela RVT Pat. Stat.:[facility] [place], CPT - 4: 25525 Echo Event ID:[id number] Order ID:[id number] Reason for Study:Pre-operative cv exam for vein mapping, Hx od ESRD, Patient is currently not on dialysis, Patient is left handed. Race:C SUMMARY: DUPLEX SCAN OBSERVATIONS Right Left IJPatent Patent SubclavianPatent Patent AxillaryNormal Normal BrachialPatent Patent Diameter Cephalic, arm Patent chronic/partial Cephalic, forearm Patent Patent Basilic, armPatent Patent Basilic, forearm Patent Patent Brachial artery PSV cm/sec 61 65 Radial artery PSV cm/sec 65 61 76 60 Ulnar artery PSV cm/sec 56 71 76 78 RIGHT:There is normal compressibility and no evidence of echogenic material noted within the lumen of the visualized veins. Colorflow and Doppler signals demonstrate patency. The nye of the radial and ulnar arteries arenot brightly echogenic. The cephalic vein branches at the mid forearm and runs laterally and joins true cephalic vein at the distal upper arm. LEFT: There is normal compressibility and no evidence of echogenic material noted within the lumen of the visualized deep veins. Colorflow and Doppler signals demonstrate patency.There is partial bright echogenic material noted in the cephalic vein at the antecubital fossa. PRELIMINARY FINDINGS 1.No evidence of acute venous thrombosis, bilateral upper extremities. 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 3. The right cephalic vein branches at the mid forearm and runs laterally and joins true cephalic vein at the distal upper arm. 4. Central veins are patent, bilaterally. 5.See diagram for vein measurements PHYSICIAN INTERPRETATION No evidence of venous thrombosis in the right upper extremity. Partial chronic venous thrombosis of the left cephalic vein at the antecubital fossa. MEASUREMENTS: UEVEINS Left Brachial Vein Antecube Brachial Vein A0.41 cm Right Brachial Vein Antecube Brachial Vein A0.37 cm Left Cephalic Forearm Prox Cephalic Forear0.22 cm Right Cephalic Forearm Prox Cephalic Forear 0.2 cm Left Ulnar Artery Ulnar Artery AP 0.2 cm Right Ulnar Artery Ulnar Artery AP0.18 cm Right Basilic Forearm Prox Basilic Forearm0.14 cm Left Basilic Upper Arm Prox Basilic Upper A 0.3 cm Right Basilic Upper Arm Prox Basilic Upper A0.37 cm Right Basilic Upper Arm Mid Basilic Upper A0.38 cm Left Cephalic Forearm Mid Cephalic Forear0.22 cm Right Cephalic Forearm Mid Cephalic Forear0.19 cm Left Cephalic Upper Arm Dist Cephalic Upper 0.37 cm Right Cephalic Upper Arm Dist Cephalic Upper 0.31 cm Left Basilic Antecubital Basilic Antecub0.16 cm Right Basilic Antecubital Fossa Basilic Antecub0.18 cm Left Basilic Upper Arm Dist Basilic Upper A0.17 cm Right Basilic Upper Arm Dist Basilic Upper A0.25 cm Left Cephalic Upper Arm Prox Cephalic Upper 0.34 cm Right Cephalic Upper Arm Prox Cephalic Upper 0.47 cm Left Brachial Artery Brachial Artery0.42 cm Right Brachial Artery Brachial Artery0.44 cm Left Cephalic Antecubital Cephalic Antecu0.17 cm Right Cephalic Antecubital Cephalic Antecu0.22 cm Left Radial Artery Radial Artery A0.22 cm Right Radial Artery Radial Artery A0.27 cm Left Cephalic Wrist Cephalic Wrist 0.31 cm Right Cephalic Wrist Cephalic Wrist0.3 cm Left Cephalic Upper Arm Mid Cephalic Upper 0.46 cm Right Cephalic Upper Arm Mid Cephalic Upper 0.36 cm DOPPLER Rad A ACF rex Right Rad A ACF0.28 cm Signed 12/10/2018 01:41 PM Olvin Stallworth MD, FACS, RPVI Procedure Note Interface, Radiology Results In - 12/10/2018 1:42 PM CDT [facility] Upper Extremity Vein Mapping Report [id number] [facility] [address], [place] [address] Pat.Name: BALTAZAR HARDEN Pat.ID: [id number] .Date: 12/10/2018 Refer.MD: Ward Triana MD Exam Time: 8:14:00 AM Study Type:UE Vein Mapping Age: 14 1970,48Y Sex: MALE Sonogrphr: Laura Valenzuela RVT Pat. Stat.:Outpatient Room: [facility] Vol: SD, CPT - 4: 32201 Echo Event ID:[id number] Order ID: [id number] Reason for Study:Pre-operative cv exam for vein mapping, Hx od ESRD, Patient is currently not on dialysis, Patient is left handed. Race: C SUMMARY: DUPLEX SCAN OBSERVATIONS Right Left IJ Patent Patent Subclavian Patent Patent Axillary Normal Normal Brachial Patent Patent Diameter Cephalic, arm Patent chronic/partial Cephalic, forearm Patent Patent Basilic, arm Patent Patent Basilic, forearm Patent Patent Brachial artery PSV cm/sec 61 65 Radial artery PSV cm/sec 65 61 76 60 Ulnar artery PSV cm/sec 56 71 76 78 RIGHT: There is normal compressibility and no evidence of echogenic material noted within the lumen of the visualized veins. Colorflow and Doppler signals demonstrate patency. The nye of the radial and ulnar arteries are not brightly echogenic. The cephalic vein branches at the mid forearm and runs laterally and joins true cephalic vein at the distal upper arm. LEFT: There is normal compressibility and no evidence of echogenic material noted within the lumen of the visualized deep veins. Colorflow and Doppler signals demonstrate patency. There is partial bright echogenic material noted in the cephalic vein at the antecubital fossa. PRELIMINARY FINDINGS 1. No evidence of acute venous thrombosis, bilateral upper extremities. 2. 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 3. The right cephalic vein branches at the mid forearm and runs laterally and joins true cephalic vein at the distal upper arm. 4. Central veins are patent, bilaterally. 5. See diagram for vein measurements PHYSICIAN INTERPRETATION No evidence of venous thrombosis in the right upper extremity. Partial chronic venous thrombosis of the left cephalic vein at the antecubital fossa. MEASUREMENTS: UEVEINS Left Brachial Vein Antecube Brachial Vein A 0.41 cm Right Brachial Vein Antecube Brachial Vein A 0.37 cm Left Cephalic Forearm Prox Cephalic Forear 0.22 cm Right Cephalic Forearm Prox Cephalic Forear 0.2 cm Left Ulnar Artery Ulnar Artery AP 0.2 cm Right Ulnar Artery Ulnar Artery AP 0.18 cm Right Basilic Forearm Prox Basilic Forearm 0.14 cm Left Basilic Upper Arm Prox Basilic Upper A 0.3 cm Right Basilic Upper Arm Prox Basilic Upper A 0.37 cm Right Basilic Upper Arm Mid Basilic Upper A 0.38 cm Left Cephalic Forearm Mid Cephalic Forear 0.22 cm Right Cephalic Forearm Mid Cephalic Forear 0.19 cm Left Cephalic Upper Arm Dist Cephalic Upper 0.37 cm Right Cephalic Upper Arm Dist Cephalic Upper 0.31 cm Left Basilic Antecubital Basilic Antecub 0.16 cm Right Basilic Antecubital Fossa Basilic Antecub 0.18 cm Left Basilic Upper Arm Dist Basilic Upper A 0.17 cm Right Basilic Upper Arm Dist Basilic Upper A 0.25 cm Left Cephalic Upper Arm Prox Cephalic Upper 0.34 cm Right Cephalic Upper Arm Prox Cephalic Upper 0.47 cm Left Brachial Artery Brachial Artery 0.42 cm Right Brachial Artery Brachial Artery 0.44 cm Left Cephalic Antecubital Cephalic Antecu 0.17 cm Right Cephalic Antecubital Cephalic Antecu 0.22 cm Left Radial Artery Radial Artery A 0.22 cm Right Radial Artery Radial Artery A 0.27 cm Left Cephalic Wrist Cephalic Wrist 0.31 cm Right Cephalic Wrist Cephalic Wrist 0.3 cm Left Cephalic Upper Arm Mid Cephalic Upper 0.46 cm Right Cephalic Upper Arm Mid Cephalic Upper 0.36 cm DOPPLER Rad A ACF rex Right Rad A ACF 0.28 cm Signed 12/10/2018 01:41 PM Olvin Stallworth MD, FACS, RPVI Performing Organization Address [facility]State[facility] Phone Number [facility] [address] [place] [address] after 12/09/2017 Insurance Payer Benefit Plan / Group Subscriber ID Type Phone Address [facility] MEDICARE [facility] MEDICARE HMO/PPO xxxxxxxxx HMO Advance Directives Patient has advance care planning documents on file. For more information, please contact:Deepak Reis[address] [place] [address]
--- OUTSIDE RECORDS SUMMARY | 2018-12-10 20:41 | XMS REPORT | Clinical Summary ---
:1970 Author Organization [facility] Address [address] [place] [address] Care Team Providers Name Role Phone Mina [...] Description 11/17/2018 Evaluation Transplant Eddie, Pre-transplant evaluation [facility] for chronic kidney disease MD Elton (Primary Dx) 10/28/2018 Orders Only Transplant Eddie, Essential hypertension; Hepatology Bhamidipati Diabetes mellitus due to underlying 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, without long-term current use of insulin (HCC); MD Elton CKD (chronic kidney disease) stage 4, GFR 15-29 ml/min ([facility]) ; Pre-transplant evaluation for chronic kidney disease [...] kidney disease) stage 4, GFR 15-29 ml/min ([facility]) ; MD Elton Diabetic nephropathy associated with type 2 diabetes mellitus ([facility]); Essential hypertension; 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, unspecified proliferative retinopathy type ([facility]); Diabetic polyneuropathy associated with type 2 diabetes mellitus ([facility]); History of kidney stones; Secondary hyperparathyroidism of renal origin ([facility]); Legally blind; Obesity (BMI 30.0-34.9); Neuroendocrine tumor of pancreas 10/09/2018 Abstract Transplant Lennie Luis 09/28/2018 Abstract Lennie Almaguer after 12/09/2017 Immunizations Name Dates Previously Given Next Due [...] Treatment Date Type Specialty Care Team Description 01/25/2019 Appointment Radiology Yfn Morgan MD [address] [address] [phone] 01/25/2019 Appointment Radiology Yfn Morgan MD [address] [address] [phone] 01/25/2019 Appointment Radiology Yfn Morgan MD [address] [address] [phone] 01/25/2019 Orders Only Lab Yfn Morgan MD [address] [address] [phone] 01/25/2019 Appointment Cardiology Yfn Morgan MD [address] [address] [phone] 01/25/2019 Appointment Cardiology Yfn Morgan MD [address] [address] [phone] Implants Implanted Type Area Rod Buster Device Shelf Model / Identifier Expiration Serial / Date Lot Sealant,Floseal Hemostatic Matrix 10ml - [id number] Cement/F N/A: BOLAND 11/02/2015 [id number] / Implanted: Qty: 1 on 09/19/2014 by Toro Casper MD iller/Ad Abdomen BIOSCIENCE / hesive FORMER FUSION [id number] MEDICAL Procedures Procedure Name Priority Date/Time Associated [...] kidney disease) stage 4, GFR 15-29 ml/min ([facility]) Pre-transplant evaluation for chronic kidney disease URINALYSIS [...] dialysis, without long-term current use of insulin ([facility]) CKD (chronic kidney disease) stage 4, GFR 15-29 ml/min (HCC) Pre-transplant evaluation for chronic kidney disease RPR Routine 10/28/2018 11:46 Essential Results for this AM CDT hypertension procedure are in Diabetes mellitus the results due to underlying section. 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, without long-term current use of insulin ([facility]) CKD (chronic kidney disease) stage 4, GFR 15-29 ml/min ([facility]) Pre-transplant evaluation for chronic kidney disease PROTHROMBIN TIME/INR Routine 10/28/2018 11:46 Essential Results for this AM CDT hypertension procedure are in Diabetes mellitus the results due to underlying section. 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, without long-term current use of insulin ([facility]) CKD (chronic kidney disease) stage 4, GFR [...] dialysis, without long-term current use of insulin ([facility]) CKD (chronic kidney disease) stage 4, GFR [...] dialysis, without long-term current use of insulin ([facility]) CKD (chronic kidney disease) stage 4, GFR 15-29 ml/min (HCC) Pre-transplant evaluation for chronic kidney disease GAMMA GLUTAMYL Routine 10/28/2018 11:46 Essential Results for this TRANSFERASE (GGT) AM CDT hypertension procedure are in Diabetes mellitus the results due to underlying section. 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, without long-term current use of insulin ([facility]) CKD (chronic kidney disease) stage 4, GFR 15-29 ml/min (HCC) Pre-transplant evaluation for chronic kidney disease EBV ANTIBODY, IGM Routine 10/28/2018 11:46 Essential Results for this AM CDT hypertension procedure are in Diabetes mellitus the results due to underlying section. 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, without long-term current use of insulin ([facility]) CKD (chronic kidney disease) stage 4, GFR 15-29 ml/min (HCC) Pre-transplant evaluation for chronic kidney disease EBV ANTIBODY, IGG Routine 10/28/2018 11:46 Essential Results for this AM CDT hypertension procedure are in Diabetes mellitus the results due to underlying section. 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, without long-term current use of insulin ([facility]) CKD (chronic kidney disease) stage 4, GFR 15-29 ml/min ([facility]) Pre-transplant evaluation for chronic kidney disease COMPREHENSIVE METABOLIC Routine 10/28/2018 11:46 Essential Results for this PANEL AM CDT hypertension procedure are in Diabetes mellitus the results due to underlying section. 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, without long-term current use of insulin ([facility]) CKD (chronic kidney disease) stage 4, GFR 15-29 ml/min (HCC) Pre-transplant evaluation for chronic kidney disease CYTOMEGALOVIRUS Routine 10/28/2018 11:46 Essential Results for this ANTIBODY, IGM AM CDT hypertension procedure are in Diabetes mellitus the results due to underlying section. 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, without long-term current use of insulin ([facility]) CKD (chronic kidney disease) stage 4, GFR [...] dialysis, without long-term current use of insulin ([facility]) CKD (chronic kidney disease) stage 4, GFR 15-29 ml/min ([facility]) Pre-transplant evaluation for chronic kidney disease after 12/09/2017 Results TRANSFUSION SERVICE REPORT - SCAN (10/29/2018 6:05 PM CDT) Narrative Performed At Type and Screen, Automated (10/28/2018 12:00 PM CDT) ABO/RH AUTOMATED (BEAKER) O POSITIVE [facility] Ab Scrn NEGATIVE [facility] Specimen Blood Performing Organization Address City/State/Zipcode Phone Number [facility] [address] [place] [address] [phone] Urinalysis, Routine (10/28/2018 11:47 AM CDT) Color, UA Light Yellow [facility] Clarity, UA Clear [facility] Specific [place], UA 1.012 1.001 - 1.035 [facility] pH, UA 6.0 5.0 - 8.0 [facility] Protein, UA 300 mg/dL (A) Negative [facility] Glucose, UA 500 mg/dL (A) Negative [facility] Ketones, UA Negative Negative [facility] Bilirubin, UA Negative Negative [facility] Blood, UA Small (A) Negative [facility] Nitrite, UA Negative Negative [facility] Leukocytes, UA Negative Negative [facility] Urobilinogen, UA 0.2 0.2 - 1.0 mg/dL [facility] RBC, UA 2 /HPF [facility] WBC, UA 5 /HPF [facility] Bacteria, UA Rare [facility] Mucus Rare [facility] Squam Epithel, UA 1 /HPF [facility] Specimen Source [facility] Specimen Urine Performing Organization Address City/[facility] Phone Number [facility] [address] [place] [address] [phone] [place] Urine Culture (10/28/2018 11:47 AM CDT) Result <10,000 col/mL skin jamey [facility] Specimen Urine Performing Organization Address City/[facility] Phone Number [facility] [address] [place] [address] [phone] [place] HLA TYPING CII (10/28/2018 11:46 AM CDT) HLA-DR AG1 7 [facility] HLA-DR AG2 17 [facility] HLA-DR AG3-1 [facility] HLA[facility]DR AG3-2 52 [facility] HLA-DR AG4-1 53 [facility] HLA-DR AG4-2 [facility] HLA-DR AG5-1 [facility] HLA-DR AG5-2 [facility] HLA-DQA1 AG 1-1 02 [facility] HLA-DQA1 AG 1-2 05 [facility] HLA-DQB1 AG 1-1 2 [facility] HLA-DQB1 AG 1-2 2 [facility] HLA-DPA1 AG 1-1 02 [facility] HLA-DPA1 AG 1-2 02 [facility] HLA-DPB1 AG 1-1 01:01 [facility] HLA-DPB1 AG 1-2 11:01 [facility] HLA-AG Notes [facility] HLA-AG Report Comments [facility] Specimen Blood Narrative Performed At Disclaimer: [facility] This test was developed and its performance characteristics determined by the [facility]. It has not been cleared or [...] complexity clinical laboratory testing. Performing Organization Address City/[facility] Phone Number [facility] ONE Daryl Siegel, MS: DANILO LOPEZ [address] [id number], CLIA#[id number] CAP#[id number] UNOS#[id number] HLA TYPING CI (10/28/2018 11:46 AM CDT) HLA-A AG1 29 [facility] HLA-A AG2 1 [facility] HLA-B AG1 44 [facility] HLA-B AG2 8 [facility] HLA-C AG1 16 [facility] HLA-C AG2 7 [facility] HLA-B BW1 4 [facility] TEST[facility] HLA-B BW2 6 [facility] HLA-AG Notes [facility] HLA-AG Report Comments [facility] Specimen Blood Narrative Performed At Disclaimer: [facility] This test was developed and its performance characteristics determined by the [facility]. It has not been cleared or [...] complexity clinical laboratory testing. Performing Organization Address City/[facility] Phone Number [facility] ONE Daryl Siegel, MS: JESSICA, DANILO [address] [id number], CLIA#[id number] CAP#[id number] [facility]#[id number] FLOW PRA CLASS II WITH REFLEX TO ANTIBODY SPECIFICITY (10/28/2018 11:46 AM CDT) Flow Class II Percent Positive 0 [facility] Flow Class Report Comments [facility] Specimen Blood Narrative Performed At Disclaimer: [facility] This test was developed and its performance characteristics determined by the [facility]. It has not been cleared or [...] complexity clinical laboratory testing. Performing Organization Address City/State/[facility] Phone Number [facility] ONE Daryl Siegel, MS: DANILO LOPEZ [address] [id number], CLIA#[id number] CAP#[id number] [facility]#[id number] FLOW PRA CLASS I WITH REFLEX TO ANTIBODY SPECIFICITY (10/28/2018 11:46 AM CDT) Flow Class I Percent Positive 15 [facility] Flow Class Report Comments [facility] Specimen Blood Narrative Performed At Disclaimer: [facility] This test was developed and its performance characteristics determined by the [facility]. It has not been cleared or [...] complexity clinical laboratory testing. Performing Organization Address City/[facility] Phone Number [facility] ONE Daryl Siegel, MS: DANILO LOPEZ [address] [id number], CLIA#[id number] CAP#[id number] [facility]#[id number] AB SPECIFICITY CLASS I (10/28/2018 11:46 AM CDT) AB Specificity Class I NO CLASS I ANTIBODY [facility] DETECTED WITH MFIs > 4000 AB Specificity Titr Class [facility] Report Specimen Blood Narrative Performed At Disclaimer: [facility] This test was developed and its performance characteristics determined by the [facility]. It has not been cleared or [...] complexity clinical laboratory testing. Performing Organization Address City/State/[facility] Phone Number [facility] ONE Daryl Siegel, MS: DANILO LOPEZ [address] [id number], CLIA#[id number] CAP#[id number] [facility]#[id number] T Spot TB (10/28/2018 11:46 AM CDT) T-Spot TB Negative [facility] Neg Ctrl Spot Count 0 [facility] Panel A Spot 0 [facility] Panel B Spot 0 [facility] Pos Ctrl Spot Ct 0 [facility] Scan Result [facility] Specimen Blood Narrative Performed At Performing Organization Address City/State/Zipcode Phone Number [facility] [address] [place] [address] LAB[address]ATOR[address] PT/aPTT (10/28/2018 11:46 AM CDT) Protime 14.7 11.7 - 14.7 seconds [facility] INR 1.1 <=5.9 [facility] PTT 28.5 22.5 - 36.0 seconds [facility] Specimen Blood Narrative Performed At RECOMMENDED COUMADIN/WARFARIN INR THERAPY [facility] RANGES STANDARD DOSE: 2.0 - 3.0 Includes: PROPHYLAXIS for venous thrombosis, systemic embolization; TREATMENT for venous thrombosis and/or pulmonary embolus. HIGH RISK: Target INR is 2.5-3.5 for patients with mechanical heart valves. Performing Organization Address City/State/Zipcode Phone Number [address] [address] CENTER HIV-1 Antigen with HIV-1/2 Antibody (10/28/2018 11:46 AM CDT) HIV-1 Antigen with HIV 1&2 NON-REACTIVE Nonreactive [facility] Specimen Blood Performing Organization Address City/State/Zipcode Phone Number [address] [address] CENTER CBC with platelet count + automated diff (10/28/2018 11:46 AM CDT) WBC 4.6 3.5 - 10.5 K/L [facility] RBC 4.64 4.63 - 6.08 M/L [facility] Hemoglobin 12.9 (L) 13.7 - 17.5 GM/DL [facility] Hematocrit 39.5 (L) 40.1 - 51.0 % [facility] MCV 85.1 79.0 - 92.2 fL [facility] MCH 27.8 25.7 - 32.2 pg [facility] MCHC 32.7 32.3 - 36.5 GM/DL [facility] RDW 12.8 11.6 - 14.4 % [facility] Platelets 147 (L) 150 - 450 K/CU MM [facility] MPV 10.7 9.4 - 12.4 fL [facility] nRBC 0 0 - 0 /100 WBC [facility] % Neutros 70 % [facility] % Lymphs 20 % [facility] % Monos 7 % [facility] % Eos 3 % [facility] % Baso 0 % [facility] # Neutros 3.21 1.78 - 5.38 K/L [facility] # Lymphs 0.92 (L) 1.32 - 3.57 K/L [facility] # Monos 0.33 0.30 - 0.82 K/L [facility] # Eos 0.12 0.04 - 0.54 K/L [facility] # Baso 0.02 0.01 - 0.08 K/L [facility] Immature Granulocytes-Relative 0 0 - 1 % [facility] Specimen Blood Performing Organization Address City/State/Zipcode Phone Number [facility] [address] [place] [address] [phone] CENTER Hepatitis C Antibody (10/28/2018 11:46 AM CDT) Hepatitis C Ab NON-REACTIVE Nonreactive [facility] Specimen Blood Performing Organization Address City/[facility] Phone Number [address] [address] [phone] [place] Cytomegalovirus antibody, IgM (10/28/2018 11:46 AM CDT) CMV IGM Negative Negative, Equivocal [facility] Specimen Blood Narrative Performed At CMV IgM Result Interpretation: [facility] </=0.8 Al Negative 0.9-1.0 Al Equivocal >/=1.1 Al Positive Performing Organization Address [facility] Phone Number [address] [address] [place] Hepatitis B core antibody, IgM (10/28/2018 11:46 AM CDT) Hep B C IgM NON-REACTIVE Nonreactive [facility] Specimen Blood Performing Organization Address City/[facility] Phone Number [address] [address] CENTER EBV-VCA antibody, IgM (10/28/2018 11:46 AM CDT) AYAN MARIA VIRAL CAPSID Positive (A) Negative, Equivocal [facility] ANTIGEN IGM [facility]ENTER Specimen Blood Narrative Performed At Ayan Maria Viral Capsid Antigen IgM Result [facility] Interpretation: </=0.8 Al Negative 0.9-1.0 Al Equivocal >/=1.1 Al Positive Performing Organization Address [facility] Phone Number [address] [address] CENTER EBV-VCA antibody, IgG (10/28/2018 11:46 AM CDT) AYAN MARIA VIRAL CAPSID Positive (A) Negative, Equivocal [facility] ANTIGEN IGG [facility] Specimen Blood Narrative Performed At Ayan Maria Viral Capsid Antigen IgG Result [facility] Interpretation: </=0.8 Al Negative 0.9-1.0 Al Equivocal >/=1.1 Al Positive Performing Organization Address [facility] Phone Number [address] [address] [place] Blood typing, automated (10/28/2018 11:46 AM CDT) ABO/RH AUTOMATED (BEAKER) O POSITIVE [facility] Specimen Blood Performing Organization Address [facility] Phone Number [address] [address] [phone] RPR (10/28/2018 11:46 AM CDT) RPR Nonreactive Nonreactive [facility] Specimen Blood Performing Organization Address [facility] Phone Number [address] [address] [place] Hepatitis B surface antibody (10/28/2018 11:46 AM CDT) Hep B S Ab <8.0 <8.0 mIU/mL [facility] Specimen Blood Performing Organization Address [facility] Phone Number [address] [address] [place] Hepatitis B surface antigen (10/28/2018 11:46 AM CDT) hepatitis B Surface Ag NON-REACTIVE Nonreactive [facility] Specimen Blood Performing Organization Address [facility] Phone Number [address] [address] [place] Cytomegalovirus antibody, IgG (10/28/2018 11:46 AM CDT) CYTOMEGALOVIRUS, IGG Negative Negative, Equivocal [facility] Specimen Blood Narrative Performed At CMV IgG Result Interpretation: [facility] </=0.8 Al Negative 0.9-1.0 Al Equivocal >/=1.1 AlPositive Performing Organization Address City/[facility] Phone Number [address] [address] [phone] CENTER Prothrombin time/INR (10/28/2018 11:46 AM CDT) Protime 14.7 11.7 - 14.7 seconds [facility] INR 1.1 <=5.9 [facility] Specimen Blood Narrative Performed At RECOMMENDED COUMADIN/WARFARIN INR THERAPY [facility] RANGES STANDARD DOSE: 2.0 - 3.0 Includes: PROPHYLAXIS for venous thrombosis, systemic embolization; TREATMENT for venous thrombosis and/or pulmonary embolus. HIGH RISK: Target INR is 2.5-3.5 for patients with mechanical heart valves. Performing Organization Address City/[facility] Phone Number [address] [address] [phone] CENTER Direct AHG (RNOAK)/Direct Tyree (10/28/2018 11:46 AM CDT) Direct AHG-IGG NEGATIVE [facility] Direct AHG-C3B, C3D NEGATVIE [facility] Specimen Blood Performing Organization Address [facility] Phone Number [address] [address] Varicella Zoster Antibody, IgG (10/28/2018 11:46 AM CDT) Varicella IgG 3.2 [facility] Specimen Blood Narrative Performed At VARICELLA ZOSTER RESULT INTERPRETATIONS: [facility] <=0.8 AlNonreactive:Presumed non-immune to VZV 0.9-1.0 AlEquivocal >=1.1 AlReactive:Presumed immune to VZV Performing Organization Address [facility] Phone Number [address] [address] [phone] CENTER Uric Acid (10/28/2018 11:46 AM CDT) Uric Acid 7.3 (H) 2.6 - 7.2 mg/dL [facility] Specimen Blood Performing Organization Address City/[facility]/Zipcode Phone Number [address] [address] [phone] [place] Phosphorus (10/28/2018 11:46 AM CDT) Phosphorus 3.2 2.3 - 4.7 mg/dL [facility] Specimen Blood Performing Organization Address City/[facility] Phone Number [address] [address] [phone] [place] PTH, Intact (10/28/2018 11:46 AM CDT) PTH 298.0 (H) 8.5 - 72.5 pg/mL [facility] Specimen Blood Performing Organization Address [facility] Phone Number [address] [address] [phone] [place] Lactate Dehydrogenase (LDH) (10/28/2018 11:46 AM CDT) LDH 220 125 - 220 U/L [facility] Specimen Blood Performing Organization Address City/[facility] Phone Number [address] [address] [place] Hemoglobin A1c (10/28/2018 11:46 AM CDT) Hemoglobin A1C 9.0 (H) 4.3 - 6.1 % [facility] Specimen Blood Performing Organization Address City/[facility] Phone Number [address] [address] [phone] CENTER Gamma Glutamyl Transferase (GGT) (10/28/2018 11:46 AM CDT) GGT 17 9 - 64 U/L [facility] Specimen Blood Performing Organization Address City/[facility] Phone Number [address] [address] [phone] [place] Lipid panel (10/28/2018 11:46 AM CDT) Triglycerides 396 mg/dL [facility] Cholesterol 244 mg/dL [facility] HDL 40 mg/dL [facility] LDL Calculated 125 mg/dL [facility] Specimen Blood Narrative Performed At Triglyceride Reference Range: [facility] [facility] Low Risk <150 [id number] High Risk 200-499 Very High Risk>=500 Cholesterol Reference Range: Low Risk <200 Rhknvomvyt121-394 High Risk>240 HDL Cholesterol Reference Range: Low Risk >=60 High Risk <40 LDL Cholesterol Reference Range: Optimal<100 Near Jnvnogq448-962 Efrjmmktsz932-700 Kpgl487-966 Very High >=190 Performing Organization Address City/State/Zipcode Phone Number [facility] [address] [place] [address] [phone] CENTER Comprehensive metabolic panel (10/28/2018 11:46 AM CDT) Protein, Total 6.5 6.0 - 8.3 gm/dL [facility] Albumin 3.6 3.5 - 5.0 g/dL [facility] Alkaline Phosphatase 82 40 - 150 U/L [facility] Total Bilirubin 0.5 0.2 - 1.2 mg/dL [facility] Sodium 140 136 - 145 meq/L [facility] Potassium 4.4 3.5 - 5.1 meq/L [facility] Chloride 105 98 - 107 meq/L [facility] CO2 25 22 - 29 meq/L [facility] BUN 41 (H) 7 - 21 mg/dL [facility] Creatinine 3.31 (H) 0.57 - 1.25 mg/dL [facility] Glucose 158 (H) 70 - 105 mg/dL [facility] Calcium 9.4 8.4 - 10.2 mg/dL [facility] AST 17 5 - 34 U/L [facility] ALT 17 6 - 55 U/L [facility] EGFR 20Comment: ESTIMATED GFR mL/min/1.73 sq m [facility] IS NOT ACCURATE [facility] CREATININE CLEARANCE IN PREDICTING GLOMERULAR FILTRATION RATE. ESTIMATED GFR IS NOT APPLICABLE FOR DIALYSIS PATIENTS. Specimen Blood Performing Organization Address City/State/Zipcode Phone Number [facility] [address] [place] [address] CENTER after 12/09/2017 Insurance Payer Benefit Plan / Group Subscriber ID Type Phone Address HU[employer] - MEDICARE MGD HUMANA MEDICARE ADV xxxxxxxxx Maps Contracted CARE HUMANA - MEDICARE MGD HU[employer]NA GOLD CHOICE xxxxxxxxx Maps Contracted CARE PFFS (Home) [place] [address] Advance Directives For more information, please contact:[facility] [place] [address] [phone] Code Status Date Activated Date Inactivated Comments [...]
--- OUTSIDE RECORDS SUMMARY | 2018-12-10 20:42 | XMS REPORT ---
:1970 [facility] Organization [facility] Address [address] [place] [address] Dr. Lieberman [address] [place] [id number] Care Team Providers Name Role Phone ANNA [...] Value Reference Range Comments CULTURE (BEAKER) (test asvf=1230) <10,000 col/mL skin jamey [id number] 14:11:00 Test Item Value Reference Range Comments RPR SCREEN (BEAKER) (test vhxu=332) Nonreactive Nonreactive HEMOGLOBIN [id number] 12:51:00 Test Item Value Reference Range Comments HEMOGLOBIN A1C (BEAKER) (test alyj=542) 9.0 % 4.3-6.1 CYTOMEGALOVIRUS ANTIBODY, [id number] 05:57:00 Test Item Value Reference Range Comments CYTOMEGALOVIRUS, IGG (BEAKER) (test emyz=9375) Negative Negative, Equivocal CMV IgG Result Interpretation: </=0.8 Al Negative 0.9-1.0 Al Equivocal &gt ;/=1.1 Al PositiveCYTOMEGALOVIRUS ANTIBODY, [id number] 05:57:00 Test Item Value Reference Range Comments CYTOMEGALOVIRUS IGM ANTIBODY (BEAKER) (test Negative Negative, Equivocal hppx=8454) CMV IgM Result Interpretation: </=0.8 Al Negative 0.9-1.0 Al Equivocal >/=1.1 Al PositiveEBV ANTIBODY, [id number] 05:57:00 Test Item Value Reference Range Comments FRANCISCO J GUAN VIRAL CAPSID ANTIGEN IGG (BEAKER) Positive Negative, Equivocal (test ntgk=0603) Francisco J Guan Viral Capsid Antigen IgG Result Interpretation: </=0.8 Al Negative 0.9-1.0 Al Equivocal >/=1.1 Al PositiveEBV ANTIBODY, [id number] 05:57:00 Test Item Value Reference Range Comments FRANCISCO J GUAN VIRAL CAPSID ANTIGEN IGM (BEAKER) Positive Negative, Equivocal (test wuvt=7411) Francisco J Guan Viral Capsid Antigen IgM Result Interpretation: </=0.8 Al Negative 0.9-1.0 Al Equivocal >/=1.1 Al PositiveVARICELLA ZOSTER ANTIBODY , [id number] 05:57:00 Test Item Value Reference Range Comments VARICELLA ZOSTER IGG (AL) (BEAKER) (test ercr=9347) 3.2 VARICELLA ZOSTER RESULT INTERPRETATIONS: <=0.8 Al Nonreactive: Presumed non-immune to VZV 0.9-1.0 Al Equivocal >=1.1 Al Reactive: Presumed immune to VZVURINALYSIS W/ [id number] 15:06 :00 Test Item Value Reference Range Comments COLOR (BEAKER) (test ibyv=212) Light Yellow CLARITY (BEAKER) (test garq=964) Clear SPECIFIC GRAVITY UA (BEAKER) (test qppm=377) 1.012 1.001-1.035 PH UA (BEAKER) (test qjtm=561) 6.0 5.0-8.0 PROTEIN UA (BEAKER) (test dmvd=737) 300 mg/dL Negative GLUCOSE UA (BEAKER) (test uimb=203) 500 mg/dL Negative KETONES UA (BEAKER) (test qicz=961) Negative Negative BILIRUBIN UA (BEAKER) (test qmxd=474) Negative Negative BLOOD UA (BEAKER) (test oxsd=976) Small Negative NITRITE UA (BEAKER) (test lwmv=541) Negative Negative LEUKOCYTE ESTERASE UA (BEAKER) (test jerb=126) Negative Negative UROBILINOGEN UA (BEAKER) (test wlzt=509) 0.2 mg/dL 0.2-1.0 RBC UA (BEAKER) (test difq=781) 2 /HPF WBC UA (BEAKER) (test rpfg=234) 5 /HPF BACTERIA (BEAKER) (test gklr=037) Rare MUCUS (BEAKER) (test krot=5869) Rare SQUAMOUS EPITHELIAL (BEAKER) (test hytz=287) 1 /HPF SOURCE(BEAKER) (test osfq=0526) HEPATITIS B SURFACE [id number] 14:38:00 Test Item Value Reference Range Comments HEPATITIS B SURFACE ANTIBODY (BEAKER) (test < mIU/mL <8.0 qzqe=285) HEPATITIS B SURFACE [id number] 14:27:00 Test Item Value Reference Range Comments HEPATITIS B SURFACE ANTIGEN (2) (BEAKER) (test Nonreactive Nonreactive zvtj=0790) HEPATITIS B CORE ANTIBODY, [id number] 14:27:00 Test Item Value Reference Range Comments HEPATITIS B CORE IGM ANTIBODY (BEAKER) (test Nonreactive Nonreactive lyfe=841) HEPATITIS C [id number] 14:27:00 Test Item Value Reference Range Comments HEPATITIS C ANTIBODY (BEAKER) (test tprv=492) Nonreactive Nonreactive HIV-1 ANTIGEN WITH HIV-1/2 [id number] 14:27:00 Test Item Value Reference Range Comments HIV-1 ANTIGEN WITH HIV 1\T\2 ANTIBODY (2) Nonreactive Nonreactive (BEAKER) (test dora=5416) COMPREHENSIVE METABOLIC [id number] 14:01:00 Test Item Value Reference Range Comments TOTAL PROTEIN (BEAKER) 6.5 gm/dL 6.0-8.3 (test tyef=385) ALBUMIN (BEAKER) (test 3.6 g/dL 3.5-5.0 xzht=1680) ALKALINE PHOSPHATASE 82 U/L 40-150 (BEAKER) (test nyag=409) BILIRUBIN TOTAL (BEAKER) 0.5 mg/dL 0.2-1.2 (test tcps=495) SODIUM (BEAKER) (test 140 meq/L 136-145 vipg=529) POTASSIUM (BEAKER) (test 4.4 meq/L 3.5-5.1 rnpt=169) CHLORIDE (BEAKER) (test 105 meq/L 98-107 ajbh=573) CO2 (BEAKER) (test 25 meq/L 22-29 tmpc=291) BLOOD UREA NITROGEN 41 mg/dL 7-21 (BEAKER) (test nmea=443) CREATININE (BEAKER) (test 3.31 mg/dL 0.57-1.25 nvcn=969) GLUCOSE RANDOM (BEAKER) 158 mg/dL 70-105 (test fflk=328) CALCIUM (BEAKER) (test 9.4 mg/dL 8.4-10.2 ycvq=758) AST (SGOT) (BEAKER) (test 17 U/L 5-34 wpkl=998) ALT (SGPT) (BEAKER) (test 17 U/L 6-55 vqbl=358) EGFR (BEAKER) (test 20 mL/min/1.73 sq m ESTIMATED GFR IS NOT kcea=1211) ACCURATE CREATININE CLEARANCE IN PREDICTING GLOMERULAR FILTRATION RATE. ESTIMATED GFR IS NOT APPLICABLE FOR DIALYSIS PATIENTS. PTH, [id number] 13:54:00 Test Item Value Reference Range Comments PARATHYROID HORMONE INTACT (BEAKER) (test 298.0 pg/mL 8.5-72.5 zsst=626) URIC [id number] 13:52:00 Test Item Value Reference Range Comments URIC ACID (BEAKER) (test dsmq=590) 7.3 mg/dL 2.6-7.2 [id number] 13:52:00 Test Item Value Reference Range Comments PHOSPHORUS (BEAKER) (test rsvy=750) 3.2 mg/dL 2.3-4.7 LIPID [id number] 13:52:00 Test Item Value Reference Range Comments TRIGLYCERIDES (BEAKER) (test schs=726) 396 mg/dL CHOLESTEROL (BEAKER) (test ehca=128) 244 mg/dL HDL CHOLESTEROL (BEAKER) (test yvwv=810) 40 mg/dL LDL CHOLESTEROL CALCULATED (BEAKER) (test 125 mg/dL rmdg=248) Triglyceride Reference Range: Low Risk <150 Borderline [...] Range Comments GAMMA GLUTAMYL TRANSFERASE (BEAKER) (test lwkf=104) 17 U/L 9-64 LACTATE DEHYDROGENASE (LDH)2018-10-28 13:52:00 Test Item Value Reference Range Comments LACTATE DEHYDROGENASE (BEAKER) (test fmwn=211) 220 U/L 125-220 [id number] 13:40:00 Test Item Value Reference Range Comments PROTIME (BEAKER) (test psuc=393) 14.7 seconds 11.7-14.7 INR (BEAKER) (test nwnf=080) 1.1 <=5.9 PARTIAL THROMBOPLASTIN TIME (BEAKER) (test 28.5 seconds 22.5-36.0 zhix=207) RECOMMENDED COUMADIN/WARFARIN INR THERAPY RANGESSTANDARD DOSE: 2.0 - 3.0 Includes: PROPHYLAXIS forvenous thrombosis, systemic embolization; TREATMENT for venous thrombosis and/or pulmonary embolus.HIGH RISK: Target INR is 2.5-3.5 for patients with mechanical heart valves.PROTHROMBIN [id number] 13:39: 00 Test Item Value Reference Range Comments PROTIME (BEAKER) (test nirs=607) 14.7 seconds 11.7-14.7 INR (BEAKER) (test urag=908) 1.1 <=5.9 RECOMMENDED COUMADIN/WARFARIN INR THERAPY RANGESSTANDARD DOSE: 2.0 - 3.0 Includes: PROPHYLAXIS forvenous thrombosis, systemic embolization; TREATMENT for venous thrombosis and/or pulmonary embolus.HIGH RISK: Target INR is 2.5-3.5 for patients with mechanical heart valves.CBC W/PLT COUNT & AUTO [id number] 13:27:00 Test Item Value Reference Range Comments WHITE BLOOD CELL COUNT (BEAKER) (test fnia=597) 4.6 K/ L 3.5-10.5 RED BLOOD CELL COUNT (BEAKER) (test ibcx=412) 4.64 M/ L 4.63-6.08 HEMOGLOBIN (BEAKER) (test xysf=609) 12.9 GM/DL 13.7-17.5 HEMATOCRIT (BEAKER) (test lpgm=250) 39.5 % 40.1-51.0 MEAN CORPUSCULAR VOLUME (BEAKER) (test zamu=279) 85.1 fL 79.0-92.2 MEAN CORPUSCULAR HEMOGLOBIN (BEAKER) (test 27.8 pg 25.7-32.2 yacz=251) MEAN CORPUSCULAR HEMOGLOBIN CONC (BEAKER) (test 32.7 GM/DL 32.3-36.5 bcbo=482) RED CELL DISTRIBUTION WIDTH (BEAKER) (test 12.8 % 11.6-14.4 mbht=302) PLATELET COUNT (BEAKER) (test fjot=512) 147 K/CU MM 150-450 MEAN PLATELET VOLUME (BEAKER) (test fvmw=862) 10.7 fL 9.4-12.4 NUCLEATED RED BLOOD CELLS (BEAKER) (test 0 /100 WBC 0-0 enzk=544) NEUTROPHILS RELATIVE PERCENT (BEAKER) (test 70 % tcsi=092) LYMPHOCYTES RELATIVE PERCENT (BEAKER) (test 20 % httv=375) MONOCYTES RELATIVE PERCENT (BEAKER) (test 7 % qypy=339) EOSINOPHILS RELATIVE PERCENT (BEAKER) (test 3 % bljm=370) BASOPHILS RELATIVE PERCENT (BEAKER) (test 0 % gcbz=371) NEUTROPHILS ABSOLUTE COUNT (BEAKER) (test 3.21 K/ L 1.78-5.38 ybpj=938) LYMPHOCYTES ABSOLUTE COUNT (BEAKER) (test 0.92 K/ L 1.32-3.57 sdgp=352) MONOCYTES ABSOLUTE COUNT (BEAKER) (test 0.33 K/ L 0.30-0.82 wuoj=980) EOSINOPHILS ABSOLUTE COUNT (BEAKER) (test 0.12 K/ L 0.04-0.54 xyka=415) BASOPHILS ABSOLUTE COUNT (BEAKER) (test 0.02 K/ L 0.01-0.08 gcee=766) IMMATURE GRANULOCYTES-RELATIVE PERCENT (BEAKER) 0 % 0-1 (test lnrs=3431)
--- NOTE | 2018-12-10 22:29 | ER ---
Nurse's Notes [facility] Name: Baltazar Granger Age: 48 yrs Sex: Male : 1970 Arrival Date: 12/10/2018 Time: 20:47 Bed 6 Private MD: Diagnosis: Low back pain;Sprain of ligaments of lumbar spine Presentation: 12/10 20:47 Presenting complaint: EMS states: Patient states sneezing earlier this evening and felt lp1 a loud pop and right lateral back area; States pain on movement to back continued after sneezing; Denies any shortness of breath. 20:48 Transition of care: patient was not received from another setting of care. Onset of lp1 symptoms was December 10, 2018. Risk Assessment: Do you want to hurt yourself or someone else? Patient reports no desire to harm self or others. Initial Sepsis Screen: Does the patient meet any 2 criteria? No. Patient's initial sepsis screen is negative. Does the patient have a suspected source of infection? No. Patient's initial sepsis screen is negative. Care prior to arrival: Glucose check: 262. 20:48 Method Of Arrival: EMS: [facility] lp1 20:48 Acuity: PANCHITO 4 lp1 Historical: - Allergies: 20:54 No Known Allergies; lp1 - Home Meds: 20:54 calcitriol 0.25 mcg oral cap 1 cap once daily [Active]; cyclobenzaprine 5 mg oral tab 3 lp1 times per day [Active]; fenofibrate 160 mg Oral tab 1 tab once daily [Active]; glimepiride 1 mg Oral tab 1 tab twice a day [Active]; gabapentin 100 mg Oral cap 1 caps 3 times per day [Active]; atorvastatin 80 mg Oral tab 1 tab once daily [Active]; omeprazole 20 mg Oral cpDR 1 cap once daily [Active]; metoprolol tartrate 25 mg Oral tab 1 tab 2 times per day [Active]; amlodipine 10 mg tab once daily [Active]; tamsulosin 0.4 mg Oral cp24 1 cap nightly [Active]; - PMHx: 20:54 BLIND; Diabetes - IDDM; ESRD; Hypertension; lp1 - PSHx: 20:54 Eye surgery; 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 - Social history:: Smoking status: Patient/guardian denies using tobacco. - Ebola Screening: : No symptoms or risks identified at this time. Screenin:55 Abuse screen: Denies threats or abuse. Denies injuries from another. Nutritional lp1 screening: No deficits noted. Tuberculosis screening: No symptoms or risk factors identified. Fall Risk None identified. Assessment: 20:54 General: Appears in no apparent distress. Behavior is calm, cooperative, appropriate lp1 for age. Pain: Complains of pain in right lateral anterior chest and right lateral posterior chest Pain currently is 10 out of 10 on a pain scale. Quality of pain is described as sharp, Aggravated by repositioning. Neuro: Level of Consciousness is awake, alert, obeys commands, Oriented to person, place, time, situation, Gait is steady. Cardiovascular: Patient's skin is warm and dry. Respiratory: Respiratory effort is even, unlabored, Breath sounds are clear bilaterally. GI: No deficits noted. : No deficits noted. EENT: No deficits noted. Derm: No deficits noted. Musculoskeletal: Circulation, motion, and sensation intact. 22:53 Reassessment: Patient appears in no apparent distress at this time. No changes from lp1 previously documented assessment. Vital Signs: 20:50 BP 137 / 90; Pulse 71; Resp 18; Temp 99.1(O); Pulse Ox 97% on R/A; Weight 111.13 kg; lp1 Height 6 ft. 0 in. (182.88 cm); Pain 10/10; 22:52 BP 157 / 90; Pulse 74; Resp 18; Pulse Ox 98% on R/A; lp1 20:50 Body Mass Index 33.23 (111.13 kg, 182.88 cm) lp1 ED Course: 20:47 Patient arrived in ED. lp1 20:48 Dorothy Guidry, RN is Primary Nurse. lp1 20:50 Triage completed. lp1 20:50 Arm band placed on left wrist. lp1 20:55 Patient has correct armband on for positive identification. lp1 21:10 Eric Donis PA is PHCP. jr8 21:10 Robert Lou MD is Attending Physician. jr8 21:59 CT Lumbar Spine Wo Con In Process Unspecified. EDMS 22:10 CT completed. Patient tolerated procedure well. Patient moved back from CT. vm2 22:53 No provider procedures requiring assistance completed. Patient did not have IV access lp1 during this emergency room visit. Administered Medications: 22:45 Drug: Austin (7.5 mg-325 mg) 1 tabs Route: PO; lp1 22:53 Follow up: Response: Medication administered at discharge. lp1 Outcome: 22:28 Discharge ordered by . stevie 22:53 Discharged to home via wheelchair, with friend. lp1 22:53 Condition: good 22:53 Discharge instructions given to patient, Instructed on discharge instructions, follow up and referral plans. medication usage, Demonstrated understanding of instructions, follow-up care, medications, Prescriptions given X 1. 22:55 Patient left the ED. lp1 Signatures: Dispatcher [employer] EDMS Dorothy Guidry RN RN lp1 Eric Donis PA PA [address] 2 Corrections: (The following items were deleted from the chart) 20:50 20:47 Presenting complaint: EMS states: Patient lp1 lp1
--- NOTE | 2018-12-10 22:29 | EDPHYS ---
Physician Documentation [facility] Name: Baltazar Granger Age: 48 yrs Sex: Male : 1970 Arrival Date: 12/10/2018 Time: 20:47 Bed 6 Private MD: REMI Physician Robert Lou HPI: 12/10 22:01 This 48 yrs old Male presents to ER via EMS with complaints of Back Pain. jr8 22:01 The patient presents with pain that is acute. The symptoms are located in the low back. jr8 Onset: The symptoms/episode began/occurred acutely, today. The pain does not radiate. Associated signs and symptoms: The patient has no apparent associated signs or symptoms. The problem was sustained Patient sneezed and felt loud pop in low back. Sneezed again and fell to knees. Pain since incident. Denies numbness, tingling, lower extremity weakness, bowel or bladder dysfunction . Historical: - Allergies: 20:54 No Known Allergies; lp1 - Home Meds: 20:54 calcitriol 0.25 mcg oral cap 1 cap once daily [Active]; cyclobenzaprine 5 mg oral tab 3 lp1 times per day [Active]; fenofibrate 160 mg Oral tab 1 tab once daily [Active]; glimepiride 1 mg Oral tab 1 tab twice a day [Active]; gabapentin 100 mg Oral cap 1 caps 3 times per day [Active]; atorvastatin 80 mg Oral tab 1 tab once daily [Active]; omeprazole 20 mg Oral cpDR 1 cap once daily [Active]; metoprolol tartrate 25 mg Oral tab 1 tab 2 times per day [Active]; amlodipine 10 mg tab once daily [Active]; tamsulosin 0.4 mg Oral cp24 1 cap nightly [Active]; - PMHx: 20:54 BLIND; Diabetes - IDDM; ESRD; Hypertension; lp1 - PSHx: 20:54 Eye surgery; 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 - Social history:: Smoking status: Patient/guardian denies using tobacco. - Ebola Screening: : No symptoms or risks identified at this time. ROS: 22:01 Eyes: Negative for injury, pain, redness, and discharge, ENT: Negative for injury, jr8 pain, and discharge, Neck: Negative for injury, pain, and swelling, Cardiovascular: Negative for chest pain, palpitations, and edema, Respiratory: Negative for shortness of breath, cough, wheezing, and pleuritic chest pain, Abdomen/GI: Negative for abdominal pain, nausea, vomiting, diarrhea, and constipation, MS/Extremity: Negative for injury and deformity, Skin: Negative for injury, rash, and discoloration, Neuro: Negative for headache, weakness, numbness, tingling, and seizure. 22:01 Back: Positive for pain at rest, pain with movement, of the low back area, Negative for radiated pain. Exam: 22:01 Eyes: Pupils equal round and reactive to light, extra-ocular motions intact. Lids and jr8 lashes normal. Conjunctiva and sclera are non-icteric and not injected. Cornea within normal limits. Periorbital areas with no swelling, redness, or edema. ENT: Nares patent. No nasal discharge, no septal abnormalities noted. Tympanic membranes are normal and external auditory canals are clear. Oropharynx with no redness, swelling, or masses, exudates, or evidence of obstruction, uvula midline. Mucous membranes moist. Neck: Trachea midline, no thyromegaly or masses palpated, and no cervical lymphadenopathy. Supple, full range of motion without nuchal rigidity, or vertebral point tenderness. No Meningismus. Cardiovascular: Regular rate and rhythm with a normal S1 and S2. No gallops, murmurs, or rubs. Normal PMI, no JVD. No pulse deficits. Respiratory: Lungs have equal breath sounds bilaterally, clear to auscultation and percussion. No rales, rhonchi or wheezes noted. No increased work of breathing, no retractions or nasal flaring. Abdomen/GI: Soft, non-tender, with normal bowel sounds. No distension or tympany. No guarding or rebound. No evidence of tenderness throughout. Skin: Warm, dry with normal turgor. Normal color with no rashes, no lesions, and no evidence of cellulitis. MS/ Extremity: Pulses equal, no cyanosis. Neurovascular intact. Full, normal range of motion. Neuro: Awake and alert, GCS 15, oriented to person, place, time, and situation. Cranial nerves II-XII grossly intact. Motor strength 5/5 in all extremities. Sensory grossly intact. Cerebellar exam normal. Normal gait. 22:01 Back: pain, that is mild, of the low back area, ROM is normal, normal spinal alignment noted, no deformity, CVA tenderness, is absent, vertebral tenderness, is not appreciated. Vital Signs: 20:50 BP 137 / 90; Pulse 71; Resp 18; Temp 99.1(O); Pulse Ox 97% on R/A; Weight 111.13 kg; lp1 Height 6 ft. 0 in. (182.88 cm); Pain 10/10; 22:52 BP 157 / 90; Pulse 74; Resp 18; Pulse Ox 98% on R/A; lp1 20:50 Body Mass Index 33.23 (111.13 kg, 182.88 cm) lp1 MDM: 21:10 Patient medically screened. [facility] 22:27 Data reviewed: vital signs, nurses notes, radiologic studies, CT scan, and as a result, jr8 I will discharge patient. Data interpreted: Pulse oximetry: on room air is 97 %. Interpretation: normal. Counseling: I had a detailed discussion with the patient and/or guardian regarding: the historical points, exam findings, and any diagnostic results supporting the discharge/admit diagnosis, radiology results, the need for outpatient follow up, a orthopedic surgeon, to return to the emergency department if symptoms worsen or persist or if there are any questions or concerns that arise at home. 12/10 21:23 Order name: CT Lumbar Spine Wo Con jrShikha Administered Medications: 22:45 Drug: Excello (7.5 mg-325 mg) 1 tabs Route: PO; lp1 22:53 Follow up: Response: Medication administered at discharge. lp1 Disposition: 12/11 14:59 Co-signature as Attending Physician, Robert Lou MD I agree with the assessment and [facility] plan of care. Disposition: 12/10/18 22:28 Discharged to Home. Impression: Low back pain, Sprain of ligaments of lumbar spine. - Condition is Stable. - Discharge Instructions: Back Pain, Adult, Musculoskeletal Pain, Back Exercises, Azzn-bp-Zjis, Heat Therapy. - Prescriptions for Tylenol- Codeine #3 300-30 mg Oral Tablet - take 2 tablets by ORAL route every 6 hours As needed; 20 tablet. - Medication Reconciliation Form, Thank You Letter, Antibiotic Education, Prescription Opioid Use form. - Follow up: Private Physician; When: 2 - 3 days; Reason: Recheck today's complaints, Continuance of care, Re-evaluation by your physician. - Problem is new. - Symptoms have improved. - Notes: Continue flexeril at home Signatures: Dispatcher [employer] Robert Hammond MD MD cha Pena, Laura RN RN lp1 Eric Donis PA PA jr8 Corrections: (The following items were deleted from the chart) 12/10 22:55 22:28 12/10/2018 22:28 Discharged to Home. Impression: Low back pain; Sprain of lp1 ligaments of lumbar spine. Condition is Stable. Forms are Medication Reconciliation Form, Thank You Letter, Antibiotic Education, Prescription Opioid Use. Follow up: Private Physician; When: 2 - 3 days; Reason: Recheck today's complaints, Continuance of care, Re-evaluation by your physician. Problem is new. Symptoms have improved. jr8
[2018-12-10] MEDS ORDERED: HYDROCODONE/APAP 7.5/325 MG TAB ONE (22:57)
[2018-12-10 23:06] VITALS: TEMP 99.1
[2018-12-10 23:07] VITALS: BP 157/90; O2SAT 98
--- NOTE | 2018-12-11 13:06 | RAD REPORT ---
EXAM DESCRIPTION: CT Lumbar Spine Without Intravenous Contrast CLINICAL HISTORY: The patient is 48 years old and is Male; PAIN TECHNIQUE: Axial computed tomography images of the lumbar spine without intravenous contrast. Sagi ttal and coronal reformatted images were created and reviewed. This CT exam was performed using one or more of the following dose reduction techniques: automated exposure control, adjustment of the mA and/or kV according to patient size, and/or use of iterative reconstruction technique. COMPARISON: No relevant prior studies available. FINDINGS: VERTEBRAE: The vertebral body heights and alignment are maintained. No acute fracture. DISCS/SPINAL CANAL/NEURAL FORAMINA: The intervertebral disc spaces are maintained. No spinal can al stenosis. SOFT TISSUES: The soft tissues are normal. IMPRESSION: No fracture or malalignment of the lumbar spine. No acute findings. Electronically signed by: Fadumo Car MD 12/10/2018 10:11 PM CDT Due to temporary technical issues with the PACS/Fluency reporting system, reports are being signed by the in house radiologist as a courtesy to ensure prompt reporting. The interpreting radiologist is f ully responsible for the content of the report.
== END 2018-12-10 22:55 | disposition home or self-care (01) ==
LOC: ER 20:37
DX: S33.5XXA Sprain of ligaments of lumbar spine, initial encounter (principal); X58.XXXA Exposure to other specified factors, initial encounter; H54.7 Unspecified visual loss; E11.22 Type 2 diabetes mellitus with diabetic chronic kidney disease; I12.0 Hypertensive chronic kidney disease with stage 5 chronic kidney disease or end stage renal disease; N18.6 End stage renal disease; Z79.4 Long term (current) use of insulin
CPT/HCPCS: 72131; 99284

== ENCOUNTER 2018-12-26 21:17 | Emergency (ER) | payer OTHER ==
--- OUTSIDE RECORDS SUMMARY | 2018-12-26 21:38 | XMS REPORT | Clinical Summary ---
:1970 Author Organization [facility] Address [address] [place] [address] Care Team Providers Name Role Phone [place] Ngo Primary Care Provider Unavailable Allergies No Known Allergies Medications Medication Sig Dispensed Refills Start Date End Date Status amLODIPine (NORVASC) Take 10 mg by 0 Active 10 mg tablet mouth daily. atorvastatin Take 80 mg by 0 Active (LIPITOR) 80 MG mouth daily. tablet ergocalciferol Take 50,000 0 Active (VITAMIN D2) 50,000 Units by mouth unit capsule once a week. fenofibrate Take 160 mg by 0 Active (LOFIBRA) 160 MG mouth daily. tablet gabapentin Take 100 mg by 0 Active (NEURONTIN) 100 mg mouth 3 capsule (three) times a day. metoprolol succinate Take 25 mg by 0 Active XL (TOPROL-XL) 25 mg mouth daily. 24 hr tablet insulin ASPART Inject under 0 Active (NovoLOG) 100 the skin. unit/mL (3 mL) insulin pen omeprazole 0 09/24/2018 Active (PriLOSEC) 20 MG capsule TOUJEO SOLOSTAR 0 11/11/2018 Active U-300 INSULIN 300 unit/mL (1.5 mL) insulin pen losartan (COZAAR) 25 Take 25 mg by 0 Discontinued MG tablet mouth daily. 9 acetaminophen-codein Take 1 tablet 30 tablet 0 12/15/2018 e (TYLENOL WITH by mouth every 9 CODEINE #3) 300-30 4 (four) hours mg per tablet as needed for moderate pain for up to 7 days. Active Problems Problem Noted Date End stage renal disease 12/11/2018 Overview: Added automatically from request for surgery [id number] Encounters Date Type Specialty Care Team Description 12/21/2018 Office Visit Cardiovascular Ward Triana Encounter regarding MD Yanira vascular access for dialysis for end-stage renal disease (HCC) (Primary Dx) 12/18/2018 Telephone Cardiovascular Emerson Joiner MA 12/15/2018 Anesthesia Event General Surgery Chata Carranza FNP 12/15/2018 Surgery General Surgery RIGHT ARM ARTERIOVENOUS FISTULA CREATION 12/15/2018 Hospital Encounter General Surgery Ward Triana End stage renal MD Yanira disease (HCC) 12/11/2018 Prep for Surgery Cardiovascular Sacha End stage renal MEREDITH Cha disease (HCC) (Primary Dx) 12/11/2018 Orders Only Cardiovascular Sacha End stage renal MEREDITH Cha disease (HCC) (Primary Dx) 12/10/2018 Office Visit Cardiovascular Ward Triana Encounter regarding MD Yanira vascular access for dialysis for end-stage renal disease (HCC) (Primary Dx) 12/10/2018 Telephone Cardiovascular Iwona Jiménez 11/27/2018 Telephone Cardiovascular Tino End stage renal disease (HCC ) (Primary Dx); Iwona Pre-op exam after 12/25/2017 Family History Medical History Relation Name Comments No Known Problems Father No Known Problems Mother Relation Name Status Comments Father Mother Alive Social History Tobacco Use Types Packs/Day Years Used Date Never Smoker Smokeless Tobacco: Never Used Alcohol Use Drinks/Week oz/Week Comments No Alcohol Habits Answer Date Recorded How often do you have a drink containing alcohol? Never 12/11/2018 How many drinks containing alcohol do you have on a typical Not asked day when you are drinking? How often do you have six or more drinks on one occasion? Not asked Sex Assigned at Date Recorded Not on file Job Start Date Occupation Industry Not on file Not on file Not on file Travel History Travel Start Travel End No recent travel history available. Last Filed Vital Signs Vital Sign Reading Time Taken Blood Pressure 153/79 12/15/2018 4:13 PM CDT Pulse 66 12/15/2018 4:13 PM CDT Temperature 36.5 C (97.7 F) 12/15/2018 4:04 PM CDT Respiratory Rate 20 12/15/2018 4:13 PM CDT Oxygen Saturation 95% 12/15/2018 4:13 PM CDT Inhaled Oxygen Concentration - - Weight 111 kg (245 lb) 12/15/2018 11:55 AM CDT Height 182.9 cm (6') 12/15/2018 11:55 AM CDT Body Mass Index 33.23 12/15/2018 11:55 AM CDT Plan of Treatment Date Type Specialty Care Team Description 02/03/2019 [place] [address] [facility] [address] [place] [address] [phone] Health Maintenance Due Date Last Done Comments INFLUENZA VACCINE 03/04/2019 Procedures Procedure Name Priority Date/Time Associated Comments Diagnosis POC GLUCOSE Routine 12/15/2018 3:28 Results for this PM CDT procedure are in the results section. ESTIMATED GFR STAT 12/15/2018 12:45 Results for this PM CDT procedure are in the results section. TYPE AND SCREEN STAT 12/15/2018 12:45 Results for this PM CDT procedure are in the results section. PARTIAL THROMBOPLASTIN STAT 12/15/2018 12:45 Results for this TIME (PTT) PM CDT procedure are in the results section. PROTHROMBIN TIME WITH STAT 12/15/2018 12:45 Results for this INR PM CDT procedure are in the results section. BASIC METABOLIC PANEL STAT 12/15/2018 12:45 Results for this PM CDT procedure are in the results section. HC COMPLETE BLD COUNT STAT 12/15/2018 12:45 Results for this W/AUTO DIFF PM CDT procedure are in the results section. POC PANEL 4 Routine 12/15/2018 12:24 Results for this PM CDT procedure are in the results section. XR CHEST 1 VW PORTABLE STAT 12/15/2018 12:13 Results for this PM CDT procedure are in the results section. ECG 12-LEAD Routine 12/15/2018 11:51 End stage renal AM CDT disease (HCC) US VEIN MAPPING UPPER Routine 12/10/2018 9:10 End stage renal Results for this EXTREMITY BILATERAL AM CDT disease (HCC) procedure are in Pre-op exam the results section. after 12/25/2017 Results POC glucose (12/15/2018 3:28 PM CDT) POC glucose 73 65 - 99 mg/dL JESSICA SHEIKH Comment: [facility] RN Notified Meter ID: [id number] Friction Welding Machine Operator: Jarrett Rodríguez Specimen Performing Organization Address City/State/Zipcode Phone Number [facility] DEPARTMENT OF PATHOLOGY [address] [place] [address] Estimated GFR (12/15/2018 12:45 PM CDT) Pathologist [facility] Estimated GFR 13 (A) mL/min/1.73 JESSICA SHEIKH Comment: m2 [place] CatergoryUnitsInterpretation HOSPITAL G1 >=90 Normal or high G2 60-89Mildly decreased A6f10-45Elfvpu to moderately decreased D5d18-14Wqwfyvdmwp to severely decreased G4 15-29Severely decreased G5 <15Kidney failure The eGFR was calculated using the Chronic Kidney Disease Epidemiology Collaboration (CKD-EPI) equation. Interpretation is based on recommendations of the National Kidney Foundation-Kidney Disease Outcomes Quality Initiative (NKF-KDOQI) published in 2014. Specimen Plasma specimen Performing Organization Address City/[facility] Phone Number [facility] DEPARTMENT OF PATHOLOGY [address] [place] [address] Partial thromboplastin time, activated (12/15/2018 12:45 PM CDT) Pathologist [facility] PTT 28.7 23.0 - 36.0 JESSICA SHEIKH Comment: [facility] PTT therapeutic range for unfractionated heparin is HOSPITAL 61.0-112.0 seconds which corresponds to Anti-Xa 0.3-0.7 U/ml. Specimen Blood Performing Organization Address City/[facility] Phone Number [facility] DEPARTMENT OF PATHOLOGY [address] [place] [address] Prothrombin time with INR (12/15/2018 12:45 PM CDT) Pathologist [facility] Prothrombin time 13.1 11.5 - 14.5 [facility] INR 1.0 SOTELO Comment: AGUILAR REYES [facility] International Normalized Ratio (INR) is a therapeutic [facility] monitoring tool for patients who are stable on oral anticoagulant therapy. An INR of 2.0-3.0 is suggested for deep vein thrombosis/pulmonary embolism. Specimen Blood Performing Organization Address City/[facility]/Zipcode Phone Number [facility] DEPARTMENT OF PATHOLOGY [id number] [place] [address] [place] [address] HOSPITAL CBC with platelet and differential (12/15/2018 12:45 PM CDT) WBC 4.7 4.5 - 11.0 k/uL [facility] RBC 4.02 (L) 4.40 - 6.00 [facility] m/uL [facility] HGB 11.3 (L) 14.0 - 18.0 [facility] g/dL [facility] HCT 34.1 (L) 41.0 - 51.0 % [facility] MCV 84.8 82.0 - 100.0 fL [facility] MCH 28.1 27.0 - 34.0 pg [facility] MCHC 33.1 31.0 - 37.0 [facility] g/dL [facility] RDW - SD 37.6 37.0 - 55.0 fL [facility] MPV 10.7 6.9 - 11.0 fL [facility] Platelet count 161 150 - 400 K/uL [facility] Nucleated RBC 0.00 /100 WBC [facility] Neutrophils 67.6 39.0 - 69.0 % [facility] Lymphocytes 22.2 (L) 25.0 - 45.0 % [facility] Monocytes 5.8 0.0 - 10.0 % [facility] Eosinophils 3.4 0.0 - 5.0 % [facility] Basophils 0.6 0.0 - 1.0 % [facility] Immature granulocytes 0.4 0.0 - 1.0 % [facility] Specimen Blood Performing Organization Address City/State/Zipcode Phone Number [facility] DEPARTMENT OF PATHOLOGY [address] [place] [address] [place] [address] HOSPITAL Type and screen (12/15/2018 12:45 PM CDT) ABO grouping O [facility] Rh type POS [facility] Antibody screen (gel) NEG [facility] Specimen Blood Performing Organization Address City/State/Zipcode Phone Number [facility] DEPARTMENT OF PATHOLOGY [address] [place] [address] Basic metabolic panel (12/15/2018 12:45 PM CDT) Sodium 142 135 - 148 mEq/L [facility] Potassium 5.3 (H) 3.5 - 5.0 mEq/L [facility] Chloride 107 98 - 112 mEq/L [facility] CO2 24 24 - 31 mEq/L [facility] Anion gap 11@ANIO 7 - 15 mEq/L [facility] BUN 53 (H) 6 - 20 mg/dL [facility] Creatinine 4.80 (H) 0.70 - 1.20 mg/dL [facility] Glucose 136 (H) 65 - 99 mg/dL [facility] Calcium 9.3 8.3 - 10.2 mg/dL [facility] Specimen Plasma specimen Performing Organization Address City/[facility]/Zipcode Phone Number [facility] DEPARTMENT OF PATHOLOGY [address] [place] [address] POC panel 4 (12/15/2018 12:24 PM CDT) POC sodium 139 135 - 148 [facility] mmol/L [facility] POC potassium 5.0 3.5 - 5.0 [facility] POC hematocrit 31 (L) 41 - 51 % [facility] POC glucose 137 (H) 65 - 99 mg/dL [facility] POC hemoglobin 10.5 (L) 14.0 - 18.0 [facility] Comment: g/dL [place] Meter ID: [id number] HOSPITAL Friction Welding Machine Operator: Grady Aguilar Specimen Blood Performing Organization Address City/[facility]/Zipcode Phone Number [facility] DEPARTMENT OF PATHOLOGY [address] [place] [address] XR Chest 1 Vw Portable (12/15/2018 12:13 PM CDT) Specimen Narrative Performed At EXAMINATION:XR CHEST 1 VW PORTABLE HM [facility] CLINICAL HISTORY:PRE PROCEDURE COMPARISON:None. IMPRESSION: Lungs are clear Heart is nonenlarged Age related changes are present throughout the bony structures without evidence of a suspicious focal lesion. [facility]-[id number] Procedure Note Hm Interface, Radiology Results Incoming - 12/15/2018 12:25 PM CDT EXAMINATION: XR CHEST 1 VW PORTABLE CLINICAL HISTORY: PRE PROCEDURE COMPARISON: None. IMPRESSION: Lungs are clear Heart is nonenlarged Age related changes are present throughout the bony structures without evidence of a suspicious focal lesion. [id number] Performing Organization Address City/State/Zipcode Phone Number [facility] [address] [place] [address] vein mapping upper extremity (12/10/2018 9:10 AM CDT) Specimen Narrative Performed At [facility] Upper Extremity Vein Mapping Report [id number] [facility] Medical Office [address], [place] [address] Pat.Name:Flavia HARDEN.ID:[id number] .Date: 12/10/2018Refer.MD:Ward Triana MD Exam Time: 8:14:00 AMStudy Type:UE Vein Mapping DOBAge:1970,48YSex: MALE Sonogrphr: Laura Valenzuela RVT Pat. Stat.:[facility], CPT - 4: 12821 Echo Event ID:[id number] Order ID:[id number] Reason for Study:Pre-operative cv exam for vein [...] VASCULAR LABORATORY Upper Extremity Vein Mapping Report [id number] [facility] Medical Office [address], [place] [id number] Pat.Name: RUBY HARDEN Pat.ID: [id number] .Date: 12/10/2018 Refer.MD: Ward Triana MD Exam Time: 8:14:00 AM Study Type:UE Vein Mapping Age: 14 1970,48Y Sex: MALE Sonogrphr: Laura Valenzuela RVT Pat. Stat.:Outpatient Room: [facility] Vol: SD, CPT - 4: 12373 Echo Event ID:[id number] Order ID: [id number] Reason for Study:Pre-operative cv exam for vein [...] Stallworth MD, FACS, RPVI Performing Organization Address City/State/[facility] Phone Number [facility] [address] [place] [address] after 12/25/2017 Advance Directives Patient has advance care planning documents on file. For more information, please contact:[facility] [id number] [place] [address]
--- OUTSIDE RECORDS SUMMARY | 2018-12-26 21:39 | XMS REPORT ---
:1970 [facility] Address [address] [place] [address] Dr. Lieberman [address] [place] [address] Care Team Providers Name Role Phone ANNA [...] Value Reference Range Comments CULTURE (BEAKER) (test tcze=0494) <10,000 col/mL skin jamey [id number] 14:11:00 Test Item Value Reference Range Comments RPR SCREEN (BEAKER) (test ojsq=613) Nonreactive Nonreactive HEMOGLOBIN [id number] 12:51:00 Test Item Value Reference Range Comments HEMOGLOBIN A1C (BEAKER) (test sqem=606) 9.0 % 4.3-6.1 CYTOMEGALOVIRUS ANTIBODY, [id number] 05:57:00 Test Item Value Reference Range Comments CYTOMEGALOVIRUS, IGG (BEAKER) (test pwsh=3183) Negative Negative, Equivocal CMV IgG Result Interpretation: </=0.8 Al Negative 0.9-1.0 Al Equivocal &gt ;/=1.1 Al PositiveCYTOMEGALOVIRUS ANTIBODY, [id number] 05:57:00 Test Item Value Reference Range Comments CYTOMEGALOVIRUS IGM ANTIBODY (BEAKER) (test Negative Negative, Equivocal inoh=3885) CMV IgM Result Interpretation: </=0.8 Al Negative 0.9-1.0 Al Equivocal >/=1.1 Al PositiveEBV ANTIBODY, [id number] 05:57:00 Test Item Value Reference Range Comments FRANCISCO J GUAN VIRAL CAPSID ANTIGEN IGG (BEAKER) Positive Negative, Equivocal (test hkpo=2120) Francisco J Guan Viral Capsid Antigen IgG Result Interpretation: </=0.8 Al Negative 0.9-1.0 Al Equivocal >/=1.1 Al PositiveEBV ANTIBODY, [id number] 05:57:00 Test Item Value Reference Range Comments FRANCISCO J GUAN VIRAL CAPSID ANTIGEN IGM (BEAKER) Positive Negative, Equivocal (test sjdm=8629) Francisco J Guan Viral Capsid Antigen IgM Result Interpretation: </=0.8 Al Negative 0.9-1.0 Al Equivocal >/=1.1 Al PositiveVARICELLA ZOSTER ANTIBODY , [id number] 05:57:00 Test Item Value Reference Range Comments VARICELLA ZOSTER IGG (AL) (BEAKER) (test evqf=5136) 3.2 VARICELLA ZOSTER RESULT INTERPRETATIONS: <=0.8 Al Nonreactive: Presumed non-immune to VZV 0.9-1.0 Al Equivocal >=1.1 Al Reactive: Presumed immune to VZVURINALYSIS W/ [id number] 15:06 :00 Test Item Value Reference Range Comments COLOR (BEAKER) (test zmmr=453) Light Yellow CLARITY (BEAKER) (test migh=210) Clear SPECIFIC GRAVITY UA (BEAKER) (test npka=990) 1.012 1.001-1.035 PH UA (BEAKER) (test whnw=223) 6.0 5.0-8.0 PROTEIN UA (BEAKER) (test phxc=237) 300 mg/dL Negative GLUCOSE UA (BEAKER) (test lwui=337) 500 mg/dL Negative KETONES UA (BEAKER) (test tqro=986) Negative Negative BILIRUBIN UA (BEAKER) (test omsg=867) Negative Negative BLOOD UA (BEAKER) (test jhhz=894) Small Negative NITRITE UA (BEAKER) (test hngr=674) Negative Negative LEUKOCYTE ESTERASE UA (BEAKER) (test fncn=936) Negative Negative UROBILINOGEN UA (BEAKER) (test eblh=652) 0.2 mg/dL 0.2-1.0 RBC UA (BEAKER) (test uizz=851) 2 /HPF WBC UA (BEAKER) (test vbgb=640) 5 /HPF BACTERIA (BEAKER) (test nwmv=314) Rare MUCUS (BEAKER) (test wiom=0325) Rare SQUAMOUS EPITHELIAL (BEAKER) (test obvj=008) 1 /HPF SOURCE(BEAKER) (test qdbf=6916) HEPATITIS B SURFACE [id number] 14:38:00 Test Item Value Reference Range Comments HEPATITIS B SURFACE ANTIBODY (BEAKER) (test < mIU/mL <8.0 xsbo=829) HEPATITIS B SURFACE [id number] 14:27:00 Test Item Value Reference Range Comments HEPATITIS B SURFACE ANTIGEN (2) (BEAKER) (test Nonreactive Nonreactive zrlv=1183) HEPATITIS B CORE ANTIBODY, [id number] 14:27:00 Test Item Value Reference Range Comments HEPATITIS B CORE IGM ANTIBODY (BEAKER) (test Nonreactive Nonreactive hceo=983) HEPATITIS C [id number] 14:27:00 Test Item Value Reference Range Comments HEPATITIS C ANTIBODY (BEAKER) (test sqds=706) Nonreactive Nonreactive HIV-1 ANTIGEN WITH HIV-1/2 [id number] 14:27:00 Test Item Value Reference Range Comments HIV-1 ANTIGEN WITH HIV 1\T\2 ANTIBODY (2) Nonreactive Nonreactive (BEAKER) (test jkhz=4043) COMPREHENSIVE METABOLIC [id number] 14:01:00 Test Item Value Reference Range Comments TOTAL PROTEIN (BEAKER) 6.5 gm/dL 6.0-8.3 (test jzjq=840) ALBUMIN (BEAKER) (test 3.6 g/dL 3.5-5.0 wuhg=1600) ALKALINE PHOSPHATASE 82 U/L 40-150 (BEAKER) (test jjws=130) BILIRUBIN TOTAL (BEAKER) 0.5 mg/dL 0.2-1.2 (test rqov=249) SODIUM (BEAKER) (test 140 meq/L 136-145 mdcr=618) POTASSIUM (BEAKER) (test 4.4 meq/L 3.5-5.1 vldm=644) CHLORIDE (BEAKER) (test 105 meq/L 98-107 eyrt=933) CO2 (BEAKER) (test 25 meq/L 22-29 exgo=187) BLOOD UREA NITROGEN 41 mg/dL 7-21 (BEAKER) (test cprw=910) CREATININE (BEAKER) (test 3.31 mg/dL 0.57-1.25 uhpf=272) GLUCOSE RANDOM (BEAKER) 158 mg/dL 70-105 (test amts=964) CALCIUM (BEAKER) (test 9.4 mg/dL 8.4-10.2 ijig=693) AST (SGOT) (BEAKER) (test 17 U/L 5-34 pzti=949) ALT (SGPT) (BEAKER) (test 17 U/L 6-55 vezt=701) EGFR (BEAKER) (test 20 mL/min/1.73 sq m ESTIMATED GFR IS NOT eqsf=2471) ACCURATE CREATININE CLEARANCE IN PREDICTING GLOMERULAR FILTRATION RATE. ESTIMATED GFR IS NOT APPLICABLE FOR DIALYSIS PATIENTS. PTH, [id number] 13:54:00 Test Item Value Reference Range Comments PARATHYROID HORMONE INTACT (BEAKER) (test 298.0 pg/mL 8.5-72.5 tuyf=692) URIC [id number] 13:52:00 Test Item Value Reference Range Comments URIC ACID (BEAKER) (test rxfv=943) 7.3 mg/dL 2.6-7.2 [id number] 13:52:00 Test Item Value Reference Range Comments PHOSPHORUS (BEAKER) (test dadk=465) 3.2 mg/dL 2.3-4.7 LIPID [id number] 13:52:00 Test Item Value Reference Range Comments TRIGLYCERIDES (BEAKER) (test zihr=789) 396 mg/dL CHOLESTEROL (BEAKER) (test hmef=172) 244 mg/dL HDL CHOLESTEROL (BEAKER) (test knpc=887) 40 mg/dL LDL CHOLESTEROL CALCULATED (BEAKER) (test 125 mg/dL mpbl=311) Triglyceride Reference Range: Low Risk <150 Borderline [...] Range Comments GAMMA GLUTAMYL TRANSFERASE (BEAKER) (test frrr=744) 17 U/L 9-64 LACTATE DEHYDROGENASE (LDH)2018-10-28 13:52:00 Test Item Value Reference Range Comments LACTATE DEHYDROGENASE (BEAKER) (test uhdi=315) 220 U/L 125-220 PT/[id number] 13:40:00 Test Item Value Reference Range Comments PROTIME (BEAKER) (test repi=434) 14.7 seconds 11.7-14.7 INR (BEAKER) (test ejrt=439) 1.1 <=5.9 PARTIAL THROMBOPLASTIN TIME (BEAKER) (test 28.5 seconds 22.5-36.0 qgto=807) RECOMMENDED COUMADIN/WARFARIN INR THERAPY RANGESSTANDARD DOSE: 2.0 - 3.0 Includes: PROPHYLAXIS forvenous thrombosis, systemic embolization; TREATMENT for venous thrombosis and/or pulmonary embolus.HIGH RISK: Target INR is 2.5-3.5 for patients with mechanical heart valves.PROTHROMBIN TIME/[id number] 13:39: 00 Test Item Value Reference Range Comments PROTIME (BEAKER) (test mgsg=369) 14.7 seconds 11.7-14.7 INR (BEAKER) (test ykvv=914) 1.1 <=5.9 RECOMMENDED COUMADIN/WARFARIN INR THERAPY RANGESSTANDARD DOSE: 2.0 - 3.0 Includes: PROPHYLAXIS forvenous thrombosis, systemic embolization; TREATMENT for venous thrombosis and/or pulmonary embolus.HIGH RISK: Target INR is 2.5-3.5 for patients with mechanical heart valves.CBC W/PLT COUNT & AUTO [id number] 13:27:00 Test Item Value Reference Range Comments WHITE BLOOD CELL COUNT (BEAKER) (test kzpz=665) 4.6 K/ L 3.5-10.5 RED BLOOD CELL COUNT (BEAKER) (test tqft=780) 4.64 M/ L 4.63-6.08 HEMOGLOBIN (BEAKER) (test oexm=064) 12.9 GM/DL 13.7-17.5 HEMATOCRIT (BEAKER) (test jvtv=793) 39.5 % 40.1-51.0 MEAN CORPUSCULAR VOLUME (BEAKER) (test afla=515) 85.1 fL 79.0-92.2 MEAN CORPUSCULAR HEMOGLOBIN (BEAKER) (test 27.8 pg 25.7-32.2 ypnh=745) MEAN CORPUSCULAR HEMOGLOBIN CONC (BEAKER) (test 32.7 GM/DL 32.3-36.5 datb=088) RED CELL DISTRIBUTION WIDTH (BEAKER) (test 12.8 % 11.6-14.4 znyh=619) PLATELET COUNT (BEAKER) (test qshh=704) 147 K/CU MM 150-450 MEAN PLATELET VOLUME (BEAKER) (test jvqf=142) 10.7 fL 9.4-12.4 NUCLEATED RED BLOOD CELLS (BEAKER) (test 0 /100 WBC 0-0 qyyy=151) NEUTROPHILS RELATIVE PERCENT (BEAKER) (test 70 % dklo=581) LYMPHOCYTES RELATIVE PERCENT (BEAKER) (test 20 % thoq=466) MONOCYTES RELATIVE PERCENT (BEAKER) (test 7 % qegr=854) EOSINOPHILS RELATIVE PERCENT (BEAKER) (test 3 % ttfa=201) BASOPHILS RELATIVE PERCENT (BEAKER) (test 0 % pcdo=797) NEUTROPHILS ABSOLUTE COUNT (BEAKER) (test 3.21 K/ L 1.78-5.38 xqlv=612) LYMPHOCYTES ABSOLUTE COUNT (BEAKER) (test 0.92 K/ L 1.32-3.57 kxkq=654) MONOCYTES ABSOLUTE COUNT (BEAKER) (test 0.33 K/ L 0.30-0.82 lvhg=820) EOSINOPHILS ABSOLUTE COUNT (BEAKER) (test 0.12 K/ L 0.04-0.54 kigq=602) BASOPHILS ABSOLUTE COUNT (BEAKER) (test 0.02 K/ L 0.01-0.08 sksd=141) IMMATURE GRANULOCYTES-RELATIVE PERCENT (BEAKER) 0 % 0-1 (test papy=4547)
--- OUTSIDE RECORDS SUMMARY | 2018-12-26 21:39 | XMS REPORT | Clinical Summary ---
:[address] [facility] Address [address] [place] [address] Care Team Providers Name Role Phone Mina [...] Description 11/17/2018 Evaluation Transplant Eddie, Pre-transplant evaluation [facility] for chronic kidney disease MD Elton (Primary Dx) 10/28/2018 Orders Only Transplant Eddie, Essential hypertension; Hepatology Bhamidipati Diabetes mellitus due to underlying 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, without long-term current use of insulin (HCC); MD Elton CKD (chronic kidney disease) stage 4, GFR 15-29 ml/min ([facility]) ; Pre-transplant evaluation for chronic kidney disease 10/28/2018 Office Visit Transplant Eddie, Essential hypertension (Primary Dx); amidipati Diabetes mellitus due to underlying 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, without long-term current use of insulin ( HCC); MD Elton CKD (chronic kidney disease) stage 4, GFR 15-29 ml/min (HCC); Labrador, Pre-transplant evaluation for chronic kidney disease Marci Maritnez RN 10/28/2018 Evaluation Transplant Eddie, Pre-transplant evaluation for chronic kidney disease (Primary Dx); Yfn CKD (chronic kidney disease) stage 4, GFR 15-29 ml/min ([facility]) ; MD Elton Diabetic nephropathy associated with type 2 diabetes mellitus ([facility]); Essential hypertension; 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, unspecified proliferative retinopathy type ([facility]); Diabetic polyneuropathy associated with type 2 diabetes mellitus ([facility]); History of kidney stones; Secondary hyperparathyroidism of renal origin ([facility]); Legally blind; Obesity (BMI 30.0-34.9); Neuroendocrine tumor of pancreas 10/09/2018 Abstract Transplant Lennie Luis 09/28/2018 Abstract Lennie Almaguer after 12/25/2017 Immunizations Name Dates Previously Given Next Due [...] Description 01/25/2019 Appointment Radiology Yfn Morgan MD [address] [place] [address] [phone] 01/25/2019 Appointment Radiology Yfn Morgan MD [address] [place] [address] [phone] 01/25/2019 Appointment Radiology Yfn Morgan MD [address] [place] [address] [phone] 01/25/2019 Orders Only Lab Yfn Morgan MD [address] [place] [address] [phone] 01/25/2019 Appointment Cardiology Yfn Morgan MD [address] [address] [phone] 01/25/2019 Appointment Cardiology Yfn Morgan MD [address] [address] [phone] Implants Implanted Type Area Multi Care Technician Device Shelf Model / Identifier Expiration Serial / Date Lot Sealant,Floseal Hemostatic Matrix 10ml - [id number] Cement/F N/A: BOLAND 11/02/2015 [id number] / Implanted: Qty: 1 on 09/19/2014 by Toro Casper MD iller/Ad Abdomen BIOSCIENCE / hesive FORMER FUSION [id number] MEDICAL Procedures Procedure Name Priority Date/Time Associated [...] (HCC) Pre-transplant evaluation for chronic kidney disease URINALYSIS [...] dialysis, without long-term current use of insulin ([facility]) CKD (chronic kidney disease) stage 4, GFR 15-29 ml/min (HCC) Pre-transplant evaluation for chronic kidney disease BLOOD TYPING, AUTOMATED Routine 10/28/2018 11:46 Essential Results for this AM CDT hypertension procedure are in Diabetes mellitus the results due to underlying section. 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, without long-term current use of insulin ([facility]) CKD (chronic kidney disease) stage 4, GFR 15-29 ml/min (HCC) Pre-transplant evaluation for chronic kidney disease AB SPECIFICITY CLASS I Routine 10/28/2018 11:46 Essential Results for this AM CDT hypertension procedure are in Diabetes mellitus the results due to underlying section. 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, without long-term current use of insulin ([facility]) CKD (chronic kidney disease) stage 4, GFR [...] dialysis, without long-term current use of insulin ([facility]) CKD (chronic kidney disease) stage 4, GFR 15-29 ml/min (HCC) Pre-transplant evaluation for chronic kidney disease PROTHROMBIN [...] dialysis, without long-term current use of insulin ([facility]) CKD (chronic kidney disease) stage 4, GFR 15-29 ml/min (HCC) Pre-transplant evaluation for chronic kidney disease GAMMA GLUTAMYL Routine 10/28/2018 11:46 Essential Results for this TRANSFERASE (GGT) AM CDT hypertension procedure are in Diabetes mellitus the results due to underlying section. 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, without long-term current use of insulin ([facility]) CKD (chronic kidney disease) stage 4, GFR 15-29 ml/min (HCC) Pre-transplant evaluation for chronic kidney disease EBV ANTIBODY, IGM Routine 10/28/2018 11:46 Essential Results for this AM CDT hypertension procedure are in Diabetes mellitus the results due to underlying section. 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, without long-term current use of insulin ([facility]) CKD (chronic kidney disease) stage 4, GFR 15-29 ml/min (HCC) Pre-transplant evaluation for chronic kidney disease EBV ANTIBODY, IGG Routine 10/28/2018 11:46 Essential Results for this AM CDT hypertension procedure are in Diabetes mellitus the results due to underlying section. 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, without long-term current use of insulin ([facility]) CKD (chronic kidney disease) stage 4, GFR 15-29 ml/min (HCC) Pre-transplant evaluation for chronic kidney disease COMPREHENSIVE METABOLIC Routine 10/28/2018 11:46 Essential Results for this PANEL AM CDT hypertension procedure are in Diabetes mellitus the results due to underlying section. 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, without long-term current use of insulin ([facility]) CKD (chronic kidney disease) stage 4, GFR 15-29 ml/min (HCC) Pre-transplant evaluation for chronic kidney disease CYTOMEGALOVIRUS Routine 10/28/2018 11:46 Essential Results for this ANTIBODY, IGM AM CDT hypertension procedure are in Diabetes mellitus the results due to underlying section. 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, without long-term current use of insulin ([facility]) CKD (chronic kidney disease) stage 4, GFR 15-29 ml/min (HCC) Pre-transplant evaluation for chronic kidney disease CYTOMEGALOVIRUS Routine 10/28/2018 11:46 Essential Results for this ANTIBODY, IGG AM CDT hypertension procedure are in Diabetes mellitus the results due to underlying section. 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, without long-term current use of insulin ([facility]) CKD (chronic kidney disease) stage 4, GFR [...] dialysis, without long-term current use of insulin ([facility]) CKD (chronic kidney disease) stage 4, GFR 15-29 ml/min ([facility]) Pre-transplant evaluation for chronic kidney disease after 12/25/2017 Results TRANSFUSION SERVICE REPORT - SCAN (10/29/2018 6:05 PM CDT) Narrative Performed At Type and Screen, Automated (10/28/2018 12:00 PM CDT) ABO/RH AUTOMATED (BEAKER) O POSITIVE [facility] Ab Scrn NEGATIVE [facility] Specimen Blood Performing Organization Address City/State/Zipcode Phone Number [facility] [address] [place] [address] [phone] Urinalysis, Routine (10/28/2018 11:47 AM CDT) Color, UA Light Yellow [facility] Clarity, UA Clear [facility] Specific [place], UA 1.012 1.001 - 1.035 [facility] pH, UA 6.0 5.0 - 8.0 [facility] Protein, UA 300 mg/dL (A) Negative [facility] Glucose, UA 500 mg/dL (A) Negative [facility] Ketones, UA Negative Negative [facility] Bilirubin, UA Negative Negative [facility] Blood, UA Small (A) Negative [facility] Nitrite, UA Negative Negative [facility] Leukocytes, UA Negative Negative [facility] Urobilinogen, UA 0.2 0.2 - 1.0 mg/dL [facility] RBC, UA 2 /HPF [facility] WBC, UA 5 /HPF [facility] Bacteria, UA Rare [facility] Mucus Rare [facility] Squam Epithel, UA 1 /HPF [facility] Specimen Source [facility] Specimen Urine Performing Organization Address City/[facility] Phone Number [facility] [address] [place] [address] [phone] [place] Urine Culture (10/28/2018 11:47 AM CDT) Result <10,000 col/mL skin jamey [facility] Specimen Urine Performing Organization Address City/[facility] Phone Number [address] [phone] [place] HLA TYPING CII (10/28/2018 11:46 AM CDT) HLA-DR AG1 7 [facility] TEST[facility] HLA-DR AG2 17 [facility] TEST[facility] HLA-DR AG3-1 [facility] TEST[facility] HLA-DR AG3-2 52 [facility] HLA TESTING HLA-DR AG4-1 53 [facility] HLA TESTING HLA-DR AG4-2 [facility] TESTING HLA-DR AG5-1 [facility] TESTING HLA-DR AG5-2 [facility] TEST[facility] HLA-DQA1 AG 1-1 02 [facility] HLA TESTING HLA-DQA1 AG 1-2 05 [facility] TESTING HLA-DQB1 AG 1-1 2 [facility] TESTING HLA-DQB1 AG 1-2 2 [facility] TESTING HLA-DPA1 AG 1-1 02 [facility] TESTING HLA-DPA1 AG 1-2 02 [facility] HLA-DPB1 AG 1-1 01:01 [facility] TEST[facility] HLA-DPB1 AG 1-2 11:01 [facility] HLA-AG Notes [facility] HLA-AG Report Comments [facility] Specimen Blood Narrative Performed At Disclaimer: [facility] HLA TESTING This test was developed and its performance characteristics determined by the [facility] Laboratory. It has not been cleared [...] complexity clinical laboratory testing. Performing Organization Address City/[facility] Phone Number [facility] HLA TESTING ONE Daryl Siegel, MS: DANILO SOTELO [address] [id number], CLIA#[id number] CAP#[id number] UNOS#[id number] HLA TYPING CI (10/28/2018 11:46 AM CDT) HLA-A AG1 29 [facility] TEST[facility] HLA-A AG2 1 [facility] TEST[facility] HLA-B AG1 44 [facility] HLA TESTING HLA-B AG2 8 [facility] HLA TESTING HLA-C AG1 16 [facility] HLA TESTING HLA-C AG2 7 [facility] HLA TESTING HLA-B BW1 4 [facility] HLA TESTING HLA-B BW2 6 [facility] TESTING HLA-AG Notes [facility] HLA TESTING HLA-AG Report Comments [facility] Specimen Blood Narrative Performed At Disclaimer: [facility] HLA TESTING This test was developed and its performance characteristics determined by the [facility] Laboratory. It has not been cleared [...] complexity clinical laboratory testing. Performing Organization Address City/[facility] Phone Number [facility] TEST[facility] ONE Daryl Siegel, MS: JESSICA, DANILO [address] [id number], CLIA#[id number] CAP#[id number] UNOS#[id number] FLOW PRA CLASS II WITH REFLEX TO ANTIBODY SPECIFICITY (10/28/2018 11:46 AM CDT) Flow Class II Percent Positive 0 [facility] TEST[facility] Flow Class Report Comments [facility] TEST[facility] Specimen Blood Narrative Performed At Disclaimer: [facility] HLA TESTING This test was developed and its performance characteristics determined by the [facility] Laboratory. It has not been cleared [...] complexity clinical laboratory testing. Performing Organization Address City/State/[facility] Phone Number [facility] ONE Daryl Siegel, MS: DANILO SOTELO [address] [id number], CLIA#[id number] CAP#[id number] UNOS#[id number] FLOW PRA CLASS I WITH REFLEX TO ANTIBODY SPECIFICITY (10/28/2018 11:46 AM CDT) Flow Class I Percent Positive 15 [facility] Flow Class Report Comments [facility] Specimen Blood Narrative Performed At Disclaimer: [facility] HLA TESTING This test was developed and its performance characteristics determined by the [facility] Laboratory. It has not been cleared [...] complexity clinical laboratory testing. Performing Organization Address City/[facility] Phone Number [facility] ONE Daryl Siegel, MS: DANILO SOTELO [address] [id number], CLIA#[id number] CAP#[id number] UNOS#[id number] AB SPECIFICITY CLASS I (10/28/2018 11:46 AM CDT) AB Specificity Class I NO CLASS I ANTIBODY [facility] HLA TESTING DETECTED WITH MFIs > 4000 AB Specificity Titr Class [facility] TEST[facility] Report Specimen Blood Narrative Performed At Disclaimer: [facility] HLA TESTING This test was developed and its performance characteristics determined by the [facility] Laboratory. It has not been cleared [...] complexity clinical laboratory testing. Performing Organization Address City/[facility] Phone Number [facility] ONE Daryl Siegel, MS: DANILO SOTELO [address] [id number], CLIA#[id number] CAP#[id number] UNOS#[id number] T Spot TB (10/28/2018 11:46 AM CDT) T-Spot TB Negative [facility] Neg Ctrl Spot Count 0 [facility] Panel A Spot 0 [facility] Panel B Spot 0 [facility] Pos Ctrl Spot Ct 0 [facility] Scan Result [facility] Specimen Blood Narrative Performed At Performing Organization Address City/State/Zipcode Phone Number [facility] [address] [place] [address] LAB[address]ATORIES [address] PT/aPTT (10/28/2018 11:46 AM CDT) Protime 14.7 11.7 - 14.7 seconds [facility] INR 1.1 <=5.9 [facility] PTT 28.5 22.5 - 36.0 seconds [facility] Specimen Blood Narrative Performed At RECOMMENDED COUMADIN/WARFARIN INR THERAPY [facility] RANGES STANDARD DOSE: 2.0 - 3.0 Includes: PROPHYLAXIS for venous thrombosis, systemic embolization; TREATMENT for venous thrombosis and/or pulmonary embolus. HIGH RISK: Target INR is 2.5-3.5 for patients with mechanical heart valves. Performing Organization Address City/[facility]/Zipcode Phone Number [address] [address] CENTER HIV-1 Antigen with HIV-1/2 Antibody (10/28/2018 11:46 AM CDT) HIV-1 Antigen with HIV 1&2 NON-REACTIVE Nonreactive [facility] Specimen Blood Performing Organization Address City/State/Zipcode Phone Number [address] [address] CENTER CBC with platelet count + automated diff (10/28/2018 11:46 AM CDT) WBC 4.6 3.5 - 10.5 K/L [facility] RBC 4.64 4.63 - 6.08 M/L [facility] Hemoglobin 12.9 (L) 13.7 - 17.5 GM/DL [facility] Hematocrit 39.5 (L) 40.1 - 51.0 % [facility] MCV 85.1 79.0 - 92.2 fL [facility] MCH 27.8 25.7 - 32.2 pg [facility] MCHC 32.7 32.3 - 36.5 GM/DL [facility] RDW 12.8 11.6 - 14.4 % [facility] Platelets 147 (L) 150 - 450 K/CU MM [facility] MPV 10.7 9.4 - 12.4 fL [facility] nRBC 0 0 - 0 /100 WBC [facility] % Neutros 70 % [facility] % Lymphs 20 % [facility] % Monos 7 % [facility] % Eos 3 % [facility] % Baso 0 % [facility] # Neutros 3.21 1.78 - 5.38 K/L [facility] # Lymphs 0.92 (L) 1.32 - 3.57 K/L [facility] # Monos 0.33 0.30 - 0.82 K/L [facility] # Eos 0.12 0.04 - 0.54 K/L [facility] # Baso 0.02 0.01 - 0.08 K/L [facility] Immature Granulocytes-Relative 0 0 - 1 % [facility] Specimen Blood Performing Organization Address City/State/Zipcode Phone Number [facility] [address] [place] [address] CENTER Hepatitis C Antibody (10/28/2018 11:46 AM CDT) Hepatitis C Ab NON-REACTIVE Nonreactive [facility] Specimen Blood Performing Organization Address City/[facility] Phone Number [address] [address] [place] Cytomegalovirus antibody, IgM (10/28/2018 11:46 AM CDT) CMV IGM Negative Negative, Equivocal [facility] Specimen Blood Narrative Performed At CMV IgM Result Interpretation: [facility] </=0.8 Al Negative 0.9-1.0 Al Equivocal >/=1.1 Al Positive Performing Organization Address [facility] Phone Number [address] [address] [place] Hepatitis B core antibody, IgM (10/28/2018 11:46 AM CDT) Hep B C IgM NON-REACTIVE Nonreactive [facility] Specimen Blood Performing Organization Address City/[facility] Phone Number [address] [address] [place] EBV-VCA antibody, IgM (10/28/2018 11:46 AM CDT) AYAN MARIA VIRAL CAPSID Positive (A) Negative, Equivocal [facility] ANTIGEN IGM [facility] Specimen Blood Narrative Performed At Ayan Maria Viral Capsid Antigen IgM Result [facility] Interpretation: </=0.8 Al Negative 0.9-1.0 Al Equivocal >/=1.1 Al Positive Performing Organization Address City/[facility] Phone Number [address] [address] [phone] CENTER EBV-VCA antibody, IgG (10/28/2018 11:46 AM CDT) AYAN MARIA VIRAL CAPSID Positive (A) Negative, Equivocal [facility] ANTIGEN IGG [facility] Specimen Blood Narrative Performed At Ayan Maria Viral Capsid Antigen IgG Result [facility] Interpretation: </=0.8 Al Negative 0.9-1.0 Al Equivocal >/=1.1 Al Positive Performing Organization Address [facility] Phone Number [address] [address] [phone] [place] Blood typing, automated (10/28/2018 11:46 AM CDT) ABO/RH AUTOMATED (BEAKER) O POSITIVE [facility] Specimen Blood Performing Organization Address [facility] Phone Number [address] [address] [phone] RPR (10/28/2018 11:46 AM CDT) RPR Nonreactive Nonreactive [facility] Specimen Blood Performing Organization Address [facility] Phone Number [address] [address] [phone] [place] Hepatitis B surface antibody (10/28/2018 11:46 AM CDT) Hep B S Ab <8.0 <8.0 mIU/mL [facility] Specimen Blood Performing Organization Address [facility] Phone Number [address] [address] [phone] [place] Hepatitis B surface antigen (10/28/2018 11:46 AM CDT) hepatitis B Surface Ag NON-REACTIVE Nonreactive [facility] Specimen Blood Performing Organization Address [facility] Phone Number [address] [address] [place] Cytomegalovirus antibody, IgG (10/28/2018 11:46 AM CDT) CYTOMEGALOVIRUS, IGG Negative Negative, Equivocal [facility] Specimen Blood Narrative Performed At CMV IgG Result Interpretation: [facility] </=0.8 Al Negative 0.9-1.0 Al Equivocal >/=1.1 AlPositive Performing Organization Address [facility] Phone Number [address] [place], [place] [phone] CENTER Prothrombin time/INR (10/28/2018 11:46 AM CDT) Protime 14.7 11.7 - 14.7 seconds [facility] INR 1.1 <=5.9 [facility] Specimen Blood Narrative Performed At RECOMMENDED COUMADIN/WARFARIN INR THERAPY [facility] RANGES STANDARD DOSE: 2.0 - 3.0 Includes: PROPHYLAXIS for venous thrombosis, systemic embolization; TREATMENT for venous thrombosis and/or pulmonary embolus. HIGH RISK: Target INR is 2.5-3.5 for patients with mechanical heart valves. Performing Organization Address [facility] Phone Number [address] [address] [phone] CENTER Direct [facility] ([place])/Direct Tyree (10/28/2018 11:46 AM CDT) Direct [facility]-IGG NEGATIVE [facility] Direct [facility]-C3B, C3D NEGATVIE [facility] Specimen Blood Performing Organization Address [facility] Phone Number [address] [address] Varicella Zoster Antibody, IgG (10/28/2018 11:46 AM CDT) Varicella IgG 3.2 [facility] Specimen Blood Narrative Performed At VARICELLA ZOSTER RESULT INTERPRETATIONS: [facility] <=0.8 AlNonreactive:Presumed non-immune to VZV 0.9-1.0 AlEquivocal >=1.1 AlReactive:Presumed immune to VZV Performing Organization Address [facility] Phone Number [address] [address] CENTER Uric Acid (10/28/2018 11:46 AM CDT) Uric Acid 7.3 (H) 2.6 - 7.2 mg/dL [facility] Specimen Blood Performing Organization Address City/State/Zipcode Phone Number [address] [address] [phone] CENTER Phosphorus (10/28/2018 11:46 AM CDT) Phosphorus 3.2 2.3 - 4.7 mg/dL [facility] Specimen Blood Performing Organization Address City/[facility] Phone Number [address] [address] [place] PTH, Intact (10/28/2018 11:46 AM CDT) PTH 298.0 (H) 8.5 - 72.5 pg/mL [facility] Specimen Blood Performing Organization Address [facility] Phone Number [address] [address] [place] Lactate Dehydrogenase (LDH) (10/28/2018 11:46 AM CDT) LDH 220 125 - 220 U/L [facility] Specimen Blood Performing Organization Address City/[facility] [facility] Phone Number [address] [address] [place] Hemoglobin A1c (10/28/2018 11:46 AM CDT) Hemoglobin A1C 9.0 (H) 4.3 - 6.1 % [facility] Specimen Blood Performing Organization Address City/[facility] Phone Number [address] [address] CENTER Gamma Glutamyl Transferase (GGT) (10/28/2018 11:46 AM CDT) GGT 17 9 - 64 U/L [facility] Specimen Blood Performing Organization Address City/[facility] Phone Number [address] [address] [place] Lipid panel (10/28/2018 11:46 AM CDT) Triglycerides 396 mg/dL [facility] Cholesterol 244 mg/dL [facility] HDL 40 mg/dL [facility] LDL Calculated 125 mg/dL [facility] Specimen Blood Narrative Performed At Triglyceride Reference Range: [facility] Low Risk <150 [id number] High Risk 200-499 Very High Risk>=500 Cholesterol Reference Range: Low Risk <200 [id number] High Risk>240 HDL Cholesterol Reference Range: Low Risk >=60 High Risk <40 LDL Cholesterol Reference Range: Optimal<100 Near [id number] Very High >=190 Performing Organization Address City/State/Zipcode Phone Number [facility] [address] [place] [address] CENTER Comprehensive metabolic panel (10/28/2018 11:46 AM CDT) Protein, Total 6.5 6.0 - 8.3 gm/dL [facility] Albumin 3.6 3.5 - 5.0 g/dL [facility] Alkaline Phosphatase 82 40 - 150 U/L [facility] Total Bilirubin 0.5 0.2 - 1.2 mg/dL [facility] Sodium 140 136 - 145 meq/L [facility] Potassium 4.4 3.5 - 5.1 meq/L [facility] Chloride 105 98 - 107 meq/L [facility] CO2 25 22 - 29 meq/L [facility] BUN 41 (H) 7 - 21 mg/dL [facility] Creatinine 3.31 (H) 0.57 - 1.25 mg/dL [facility] Glucose 158 (H) 70 - 105 mg/dL [facility] Calcium 9.4 8.4 - 10.2 mg/dL [facility] AST 17 5 - 34 U/L [facility] ALT 17 6 - 55 U/L [facility] EGFR 20Comment: ESTIMATED GFR mL/min/1.73 sq m [facility] IS NOT ACCURATE [facility] CREATININE CLEARANCE IN PREDICTING GLOMERULAR FILTRATION RATE. ESTIMATED GFR IS NOT APPLICABLE FOR DIALYSIS PATIENTS. Specimen Blood Performing Organization Address City/State/Zipcode Phone Number [facility] [address] [place], [place] [id number] [phone] CENTER after 12/25/2017 Insurance Payer Benefit Plan / Group Subscriber ID Type Phone Address [employer] - MEDICARE MGD HU[employer]NA MEDICARE ADV xxxxxxxxx Maps Contracted CARE HUMANA - MEDICARE MGD HU[employer]NA GOLD CHOICE xxxxxxxxx Maps Contracted CARE [place] (Home) [place] [address] Advance Directives For more information, please contact:[facility] [place] [address] [phone] Code Status Date Activated Date Inactivated Comments [...]
[2018-12-26] MEDS ORDERED: MEPERIDINE HCL 50 MG/ML AMP ONE (23:22)
[2018-12-26] MEDS ORDERED: DIPHENOX/ATROP SULF 1 TAB PO ONE (23:23)
[2018-12-26] MEDS ORDERED: ONDANSETRON 4 MG/2 ML VIAL ONE (23:23)
[2018-12-26 23:32] LABS: Absolute Lymphocytes (CBC) 1.1 K/uL (0.7-4.9); Absolute Monocytes 0.4 K/uL (0.1-1.3); Absolute Neutrophil 2.7 K/uL (1.8-8.0); Basophils % 0.8 % (0-1.3); Eosinophils % 4.2 % (0-4.4); Hematocrit 32.1 % (39.6-49.0); Lymphocytes % 24.6 % (15.3-44.8); MPV 9.1 fL (7.6-11.3); Monocytes % 8.5 % (3.3-12.3); RBC Red Blood Cell Count 3.82 M/uL (4.33-5.43)
[2018-12-26 23:55] LABS: Albumin 3.1 g/dL (3.4-5.0); Bilirubin Direct 0.1 mg/dL (0-0.2); Bilirubin Total 0.5 mg/dL (0.2-1.0); Potassium 4.8 mmol/L (3.5-5.1); Protein, Total 6.6 g/dL (6.4-8.2)
--- NOTE | 2018-12-27 01:00 | ER ---
Nurse's Notes [facility] Name: Baltazar Granger Age: 48 yrs Sex: Male : 1970 Arrival Date: 12/26/2018 Time: 21:28 Bed 30 Private MD: Diagnosis: Gastrenteritis. Chronic renal disease Presentation: 12/26 21:50 Presenting complaint: Patient states: I have been having abd pain and diarrhea all day, la1 I started to have bright red blood in my stool. Pt reports 4 BMs today. Transition of care: patient was not received from another setting of care. Onset of symptoms was December 26, 2018. Risk Assessment: Do you want to hurt yourself or someone else? Patient reports no desire to harm self or others. Initial Sepsis Screen: Does the patient meet any 2 criteria? No. Patient's initial sepsis screen is negative. Does the patient have a suspected source of infection? No. Patient's initial sepsis screen is negative. Care prior to arrival: None. 21:50 Method Of Arrival: Ambulatory la1 21:50 Acuity: PANCHITO 3 la1 Historical: - Allergies: 21:51 No Known Allergies; la1 - PMHx: 21:51 BLIND; Diabetes - IDDM; ESRD; Hypertension; la1 - Immunization history:: Adult Immunizations up to date. - Social history:: Smoking status: Patient/guardian denies using tobacco. - Ebola Screening: : No symptoms or risks identified at this time. Screenin:51 Abuse screen: Denies threats or abuse. Nutritional screening: No deficits noted. Fall fu Risk None identified. 12/27 01:43 Tuberculosis screening: No symptoms or risk factors identified. mg2 Assessment: 12/26 22:46 General: Appears uncomfortable, Behavior is calm, cooperative, appropriate for age. fu Pain: Complains of pain in abdomen Pain does not radiate. Pain currently is 10 out of 10 on a pain scale. Quality of pain is described as crampy, Pain began around 0900 today. Neuro: Level of Consciousness is awake, alert, obeys commands, Oriented to person, place, time, situation, Swim Instructor are equal bilaterally Moves all extremities. Gait is steady, Speech is normal, Facial symmetry appears normal. Cardiovascular: No deficits noted. Respiratory: Breath sounds are clear. GI: Bowel sounds present X 4 quads. Abd is soft X 4 quads Reports cramping, diarrhea, bloody stool, nausea. : Reports kidney disease. Derm: AV fistula to right lower arm. Vital Signs: 21:51 BP 127 / 76; Pulse 64; Resp 16; Temp 97.8; Pulse Ox 98% on R/A; Weight 111.13 kg; la1 Height 6 ft. 0 in. (182.88 cm); 12/27 00:49 Pulse 59; Resp 18; Temp 98; Pulse Ox 98% on R/A; mg2 01:00 BP 143 / 93; Pulse 62; Resp 16; Pulse Ox 96% on R/A; Pain 4/10; fu 12/26 21:51 Body Mass Index 33.23 (111.13 kg, 182.88 cm) la1 ED Course: 12/26 21:28 Patient arrived in ED. es 21:51 Triage completed. la1 21:52 Arm band placed on left wrist. la1 22:29 Darren Alvarado RN is Primary Nurse. fu 22:51 Clem Keith MD is Attending Physician. pkl 23:44 No provider procedures requiring assistance completed. Inserted saline lock: 20 gauge mg2 in left forearm, using aseptic technique. Blood collected. 12/27 01:00 Door closed. mg2 01:42 IV discontinued, intact, bleeding controlled, No redness/swelling at site. Pressure mg2 dressing applied. 01:43 Patient has correct armband on for positive identification. Pulse ox on. NIBP on. mg2 Administered Medications: 12/26 23:12 Drug: LoMOTIL 2 tabs Route: PO; fu 12/27 00:52 Follow up: Response: No adverse reaction fu 12/26 23:36 Drug: Demerol 50 mg Route: IVP; Site: left forearm; fu 12/27 00:52 Follow up: Response: Pain is decreased fu 12/26 23:36 Drug: Zofran 4 mg Route: IVP; Infused Over: 2 mins; Site: left forearm; fu 12/27 01:42 Follow up: Response: No adverse reaction; Marked relief of symptoms mg2 01:23 Drug: Bactrim (160 mg-800 mg (DS) 1 tablet Route: PO; fu 01:42 Follow up: Response: No adverse reaction; Medication administered at discharge. mg2 Outcome: 00:59 Discharge ordered by . pkl 01:43 Discharged to home ambulatory. mg2 01:43 Condition: stable 01:43 Discharge instructions given to patient, Instructed on discharge instructions, follow up and referral plans. medication usage, Demonstrated understanding of instructions, follow-up care, medications, Prescriptions given X 2. 01:43 Patient left the ED. mg2 Signatures: Clem Keith MD MD pkVandana Mark Lee RN RN la1 Darren Alvarado RN RN fu Gardose, Michele, RN RN mg2
--- NOTE | 2018-12-27 01:01 | EDPHYS ---
Physician Documentation [facility] Name: Baltazar Granger Age: 48 yrs Sex: Male : 1970 Arrival Date: 12/26/2018 Time: 21:28 Bed 30 Private MD: ED Physician Clem Keith HPI: 12/27 00:55 This 48 yrs old Male presents to ER via Ambulatory with complaints of pkl Diarrhea. 00:55 The patient presents to the emergency department with diarrhea, 4 times today. Onset: pkl The symptoms/episode began/occurred today. Associated signs and symptoms: The patient has no apparent associated signs or symptoms. Historical: - Allergies: 12/26 21:51 No Known Allergies; la1 - PMHx: 21:51 BLIND; Diabetes - IDDM; ESRD; Hypertension; la1 - Immunization history:: Adult Immunizations up to date. - Social history:: Smoking status: Patient/guardian denies using tobacco. - Ebola Screening: : No symptoms or risks identified at this time. ROS: 12/27 00:55 Eyes: Negative for injury, pain, redness, and discharge, ENT: Negative for injury, pkl pain, and discharge, Neck: Negative for injury, pain, and swelling, Cardiovascular: Negative for chest pain, palpitations, and edema, Respiratory: Negative for shortness of breath, cough, wheezing, and pleuritic chest pain. Abdomen/GI: Positive for abdominal cramps. 00:55 Back: Negative for acute changes. pkl 00:55 : Negative for urinary symptoms. 00:55 MS/extremity: Negative for acute changes. 00:55 Skin: Negative for rash. 00:55 Neuro: Negative for altered mental status. Exam: 00:55 Head/Face: Normocephalic, atraumatic. Eyes: Pupils equal round and reactive to light, pkl extra-ocular motions intact. Lids and lashes normal. Conjunctiva and sclera are non-icteric and not injected. Cornea within normal limits. Periorbital areas with no swelling, redness, or edema. ENT: Nares patent. No nasal discharge, no septal abnormalities noted. Tympanic membranes are normal and external auditory canals are clear. Oropharynx with no redness, swelling, or masses, exudates, or evidence of obstruction, uvula midline. Mucous membranes moist. Neck: Trachea midline, no thyromegaly or masses palpated, and no cervical lymphadenopathy. Supple, full range of motion without nuchal rigidity, or vertebral point tenderness. No Meningismus. Chest/axilla: Normal chest wall appearance and motion. Nontender with no deformity. No lesions are appreciated. Cardiovascular: Regular rate and rhythm with a normal S1 and S2. No gallops, murmurs, or rubs. Normal PMI, no JVD. No pulse deficits. Respiratory: Lungs have equal breath sounds bilaterally, clear to auscultation and percussion. No rales, rhonchi or wheezes noted. No increased work of breathing, no retractions or nasal flaring. 00:55 Abdomen/GI: Bowel sounds: active, Palpation: soft, mild abdominal tenderness, in the right lower quadrant and left lower quadrant. 00:55 Back: Exam negative for acute changes. 00:55 : Exam negative for acute changes. 00:55 Musculoskeletal/extremity: Exam is negative for acute changes. 00:55 Skin: Exam negative for rash. 00:55 Neuro: Orientation: is normal, Mentation: is normal, Cranial nerves: grossly normal, Motor: is normal. Vital Signs: 12/26 21:51 BP 127 / 76; Pulse 64; Resp 16; Temp 97.8; Pulse Ox 98% on R/A; Weight 111.13 kg; la1 Height 6 ft. 0 in. (182.88 cm); 12/27 00:49 Pulse 59; Resp 18; Temp 98; Pulse Ox 98% on R/A; mg2 01:00 BP 143 / 93; Pulse 62; Resp 16; Pulse Ox 96% on R/A; Pain 4/10; fu 12/26 21:51 Body Mass Index 33.23 (111.13 kg, 182.88 cm) la1 MDM: 12/26 22:51 Patient medically screened. pkl 12/27 00:55 Data reviewed: vital signs, nurses notes, lab test result(s). pkl 00:55 ED course: Patient feeling better. No diarrhea noted in ER. pkl 12/26 22:57 Order name: Basic Metabolic Panel pkl 12/26 22:57 Order name: CBC with Diff pkl 12/26 22:57 Order name: Creatinine for Radiology; Complete Time: 00:10 pkl 12/26 22:57 Order name: Hepatic Function; Complete Time: 00:10 pkl 12/26 22:57 Order name: Lipase; Complete Time: 00:10 pkl 12/26 22:57 Order name: IV Saline Lock; Complete Time: 23:43 pkl 12/26 22:57 Order name: Labs collected and sent; Complete Time: 23:44 pkl 12/26 22:59 Order name: Basic Metabolic Panel; Complete Time: 00:10 EDMS 12/26 22:59 Order name: CBC with Automated Diff; Complete Time: 00:10 EDMS Administered Medications: 12/26 23:12 Drug: LoMOTIL 2 tabs Route: PO; fu 12/27 00:52 Follow up: Response: No adverse reaction 12/26 23:36 Drug: Demerol 50 mg Route: IVP; Site: left forearm; 12/27 00:52 Follow up: Response: Pain is decreased 12/26 23:36 Drug: Zofran 4 mg Route: IVP; Infused Over: 2 mins; Site: left forearm; fu 12/27 01:42 Follow up: Response: No adverse reaction; Marked relief of symptoms mg2 01:23 Drug: Bactrim (160 mg-800 mg (DS) 1 tablet Route: PO; fu 01:42 Follow up: Response: No adverse reaction; Medication administered at discharge. mg2 Disposition: 12/27/18 00:59 Discharged to Home. Impression: Gastrenteritis. Chronic renal disease. - Condition is Stable. - Prescriptions for Lomotil 2.5- 0.025 mg Oral Tablet - take 1 tablet by ORAL route every 8 hours As needed; 12 tablet. Bactrim DS 800- 160 mg Oral Tablet - take 1 tablet by ORAL route every 12 hours for 5 days; 10 tablet. - Medication Reconciliation Form, Thank You Letter, Antibiotic Education, Prescription Opioid Use form. - Follow up: Private Physician; When: 2 - 3 days; Reason: Re-evaluation by your physician. - Problem is new. - Symptoms have improved. Signatures: Dispatcher [employer] EDMS Clem Keith MD MD pkl Attema, Lee RN RN la1 Darren Alvarado RN MEREDITH fu Demetri Henson RN RN mg2 Corrections: (The following items were deleted from the chart) 01:43 00:59 12/27/2018 00:59 Discharged to Home. Impression: Gastrenteritis. Chronic renal mg2 disease. Condition is Stable. Forms are Medication Reconciliation Form, Thank You Letter, Antibiotic Education, Prescription Opioid Use. Follow up: Private Physician; When: 2 - 3 days; Reason: Re-evaluation by your physician. Problem is new. Symptoms have improved. pkl
[2018-12-27] MEDS ORDERED: SMZ./TMP. 800/160 MG TABLET ONE (01:37)
[2018-12-27 02:24] VITALS: BP 127/76; O2SAT 98
[2018-12-27 02:25] VITALS: TEMP 98
== END 2018-12-27 01:43 | disposition home or self-care (01) ==
LOC: ER 21:17
DX: K52.9 Noninfective gastroenteritis and colitis, unspecified (principal); E11.22 Type 2 diabetes mellitus with diabetic chronic kidney disease; I12.0 Hypertensive chronic kidney disease with stage 5 chronic kidney disease or end stage renal disease; N18.6 End stage renal disease; Z79.4 Long term (current) use of insulin
CPT/HCPCS: 85025; 80048; 36415; 80076; 83690; 96375; 96374; 99284; J2175; J2405